=== PATIENT | female | born 1960 | race Caucasian/White ===

== ENCOUNTER 2021-10-07 10:18 | Inpatient (IN) | payer MEDICARE ==
[2021-10-07] VITALS (19 sets, daily range): BP systolic 73–132; BP diastolic 47–76
[~2021-10-07] VITALS: Ht 160 cm; Wt 70.4 kg
[~2021-10-07 10:18] MED LIST: ALBU0.632 IH; ALPR.5T PO; ALPR1T; CEFU500T5 PO; DOXY100C2 PO; GBPN300C PO; PRD20T PO; RT-COMBINH IH
[2021-10-07 10:56] LABS: ALBUMIN 3.9 GM/DL (3.2-4.5); BASOPHILS % (AUTO) 0 % (0-10); EOSINOPHILS % (AUTO) 0 % (0-10); HEMATOCRIT 44 % (35-52); HEMOGLOBIN 13.6 g/dL (11.5-16.0); LYMPHOCYTES # (AUTO) 2.9 10^3/uL (1.0-4.0); LYMPHOCYTES % (AUTO) 18 % (12-44); MEAN CORPUSCULAR HEMOGLOBIN 30 pg (25-34); MEAN CORPUSCULAR HGB CONC 31 g/dL (32-36); MEAN CORPUSCULAR VOLUME 97 fL (80-99); MEAN PLATELET VOLUME 11.2 fL (9.0-12.2); MONOCYTES # (AUTO) 1.1 10^3/uL (0.0-1.0); MONOCYTES % (AUTO) 7 % (0-12); NEUTROPHILS % (AUTO) 74 % (42-75); PLATELET COUNT 189 10^3/uL (130-400); POTASSIUM 3.9 MMOL/L (3.6-5.0); WHITE BLOOD COUNT 16.1 10^3/uL (4.3-11.0)
[2021-10-07 10:57] LABS: CALCIUM 9.5 MG/DL (8.5-10.1)
[2021-10-07 10:59] LABS: TOTAL PROTEIN 7.4 GM/DL (6.4-8.2)
[2021-10-07 11:00] LABS: BILIRUBIN,TOTAL 0.4 MG/DL (0.1-1.0); INR 1.1 (0.8-1.4); PROTHROMBIN TIME PATIENT 14.6 SEC (12.2-14.7)
[2021-10-07 11:02] LABS: CREATININE SERUM 0.71 MG/DL (0.60-1.30)
--- NOTE | 2021-10-07 11:07 | Diagnostic Imaging Report ---
INDICATION: Fever and cough as well as shortness of breath. TIME OF EXAM: 11:04 a.m. COMPARISON: Correlation is made with prior chest 07/02/2012. FINDINGS: Heart size is normal. Patient has developed some infiltrate in the right upper lobe. There is also some patchy infiltrate in the left upper lobe and left base. No effusion or pneumothorax is identified. IMPRESSION: Development of patchy bilateral pulmonary infiltrates consistent with pneumonia. Dictated by: Dictated on workstation # [id number]
[2021-10-07] MEDS ORDERED: methylPREDNISolone 125 MG (Solu-MEDROL) VIAL IVP ONE (11:15)
[2021-10-07] MEDS ORDERED: RT-ALBUTEROL/IPRATROPIUM 3 ML (DUONEB) VIAL INH ONE (11:15)
[2021-10-07 11:19] LABS: BAND NEUTROPHILS 22 %; LYMPHOCYTES % (MANUAL) 23 %; MONOCYTES % (MANUAL) 5 %; NEUTROPHILS % (MANUAL) 50 %; RBC MORPH NORMAL
[2021-10-07] MEDS ORDERED: PIPERACILLIN SODIUM/TAZOBACTAM 4.5 GM in NS (IVPB) 100 ML IV ONE (12:00)
--- NOTE | 2021-10-07 12:01 | ED Respiratory ---
General Chief Complaint: Respiratory Problems Stated Complaint: FEVER - COUGH - SOA Nursing Triage Note: PT AMB TO RM 5 WITH COMPLAINT OF SOA, COUGH, FEVER FOR 2-3 DAYS. WEARS HOME O2, 3LNC Source: patient Exam Limitations: no limitations History of Present Illness Date Seen by Provider: Oct 07, 2021 Time Seen by Provider: 10:42 Initial Comments This 61-year-old woman with known COPD and supplemental oxygen dependence presents to the emergency room with shortness of breath, body aches, subjective fevers, and productive cough for the past 3 days. She lives in [facility] but plans to move back to the area. She currently has no primary care provider here. She is not currently using any nebulized treatments but does have some inhalers. Oxygen saturation on presentation was 69% with use of her nasal cannula. She did resuscitate her saturations greater than 90% with high flow OxyMask. She still occasionally smokes. Her breathing appears comfortable on the high flow mask but she is moving air very poorly on auscultation. Patient had a prolonged hospital admission with COVID-19 previously. Allergies and Home Medications Allergies Coded Allergies: methylprednisolone (Verified Adverse Reaction, Unknown, Agitation and delirium, 10/07/21) Became agitated and delirious after prolonged steroid use with COVID-19 Patient Home Medication List Home Medication List Reviewed: Yes Albuterol Sulfate (Proair Hfa) 1 Puff Puff, 2 PUFF IH Q4H PRN for SHORTNESS OF BREATH, (Reported) Entered as Reported by: BRISA CASTILLO on 10/07/211543 Last Action: Held Alprazolam (Alprazolam) 0.5 Mg Tablet, 0.5 MG PO TID PRN for ANXIETY, (Reported) Entered as Reported by: BRISA CASTILLO on 10/07/211543 Last Action: Continued Budesonide/Formoterol Fumarate (Symbicort 160-4.5 Mcg Inhaler) 160 Mcg-4.5 Mcg/Actuation Hfa.aer.ad, 2 PUFF IH BID, (Reported) Entered as Reported by: BRISA CASTILLO on 10/07/211543 Last Action: Held Celecoxib (Celebrex) 200 Mg Capsule, 200 MG PO DAILY, (Reported) Entered as Reported by: BRISA CASTILLO on 10/07/211543 Last Action: Converted Cholecalciferol (Vitamin D3) (Vitamin D3) 125 Mcg (5000 Unit) Tablet, 125 MCG PO DAILY, (Reported) Entered as Reported by: BRISA CASTILLO on 10/07/211543 Last Action: Continued Gabapentin (Neurontin) 300 Mg Capsule, 600 MG PO HS, (Reported) Entered as Reported by: BRISA CASTILLO on 10/07/211543 Last Action: Continued Gabapentin (Neurontin) 300 Mg Capsule, 300 MG PO DAILY, (Reported) Entered as Reported by: BRISA CASTILLO on 10/07/211543 Last Action: Continued Magnesium Oxide (Magnesium) 400 Mg Magnesium Tablet, 400 MG PO DAILY, (Reported) Entered as Reported by: BRISA CASTILLO on 10/07/211543 Last Action: Converted Multivits-Min/Iron/FA/Lutein (Centrum Silver Women Tablet) 8 Mg Iron-400 Mcg-300 Mcg Tablet, 1 EACH PO DAILY, (Reported) Entered as Reported by: BRISA CASTILLO on 10/07/211543 Last Action: Converted Ubidecarenone (Co Q10) 200 Mg Capsule, 200 MG PO DAILY, (Reported) Entered as Reported by: BRISA CASTILLO on 10/07/211543 Last Action: Converted Umeclidinium [place] (Incruse Ellipta) 62.5 Mcg/Actuation Blst.w.dev, 1 PUFF IH DAILY, (Reported) Entered as Reported by: BRISA ACSTILLO on 10/07/211543 Last Action: Held Discontinued Medications Albuterol Sulfate (Albuterol Sulfate 0.63 Mg/3 Ml Ns) 0.63 Mg/3 Ml Vial.neb, 1 EACH IH Q 4 - 6 HRS PRN Discontinued Reason: Duplicate Order Prescribed by: AMARILIS HURT on 06/25/10 1448 Last Action: Discontinued Alprazolam (Xanax) 0.5 Mg Tablet, 1 TAB PO BID, (Reported) Discontinued Reason: Duplicate Order Entered as Reported by: ALISHA DONOHUE on 07/03/12 0125 Last Action: Discontinued Cefuroxime Axetil (Cefuroxime Axetil) 500 Mg Tablet, 1 EACH PO BID, (Reported) Discontinued Reason: Duplicate Order Entered as Reported by: DOE DAY on 07/10/12 1310 Last Action: Discontinued Ipratropium/Albuterol Sulfate (Combivent Inhaler) 14.7 Gm Aer.w.adap, 2 PUFF IH Q6HR PRN Discontinued Reason: Duplicate Order Prescribed by: AMARILIS HURT on 06/25/10 1448 Last Action: Discontinued Review of Systems Review of Systems Constitutional: see HPI EENTM: no symptoms reported Respiratory: see HPI Cardiovascular: no symptoms reported Gastrointestinal: no symptoms reported Genitourinary: no symptoms reported : No Musculoskeletal: see HPI Skin: no symptoms reported Psychiatric/Neurological: No Symptoms Reported Hematologic/Lymphatic: No Symptoms Reported Immunological/Allergic: no symptoms reported Past Wqfomcm-Cayxmd-Ldukfe Hx Patient Social History Tobacco Use?: Yes Tobacco type used: Cigarettes Smoking Status: Light Tobacco Smoker Use of E-Cig and/or Vaping dev: No Substance use?: No Alcohol Use?: No Pt feels they are or have been: No Immunizations Up To Date Tetanus Booster (TDap): More than 5yrs First/Initial COVID19 Vaccinat: 2020 Second COVID19 Vaccination Vincent: 2020 Seasonal Allergies Seasonal Allergies: No Past Medical History Surgeries: Yes Cardiac (Heart cath without interventions), Hysterectomy Respiratory: Yes Pneumonia, COPD (Uses supplemental oxygen at 3 L) Cardiac: Yes Coronary Artery Disease (Minor, nonobstructive by cath) Neurological: No Reproductive Disorders: No 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 oz. kg; 27.00 BMI Method:Estimated General Appearance: WD/WN, no apparent distress HEENT: PERRL/EOMI, normal ENT inspection Neck: normal inspection Respiratory: decreased breath sounds; No crackles; wheezing, other (Poor air movement) Cardiovascular: regular rate, rhythm, no edema, no murmur, other (Normal radial and pedal pulse) Gastrointestinal: normal bowel sounds, non tender, soft Extremities: normal inspection, no pedal edema Neurologic/Psychiatric: no motor/sensory deficits, alert, normal mood/affect, oriented x 3 Skin: normal color, warm/dry Focused Exam Lactate Level 10/07/21 10:35: Lactic Acid Level 1.75 Lactic Acid Level Laboratory Tests Test 10/07/21 10:35 Lactic Acid Level 1.75 MMOL/L (0.50-2.00) Progress/Results/Core Measures Suspected Sepsis SIRS Temperature: Pulse: 107 Respiratory Rate: 26 Laboratory Tests 10/07/21 10:35: White Blood Count 16.1H Blood Pressure 131 /57 Mean: 81 10/07/21 10:35: Lactic Acid Level 1.75 Laboratory Tests 10/07/21 10:35: Creatinine 0.71, INR Comment 1.1, Platelet Count 189, Total Bilirubin 0.4 Results/Orders Lab Results Laboratory Tests Test 10/07/21 10:35 10/07/21 11:47 Range/Units White Blood Count 16.1 H 4.3-11.0 10^3/uL Red Blood Count 4.48 3.80-5.11 10^6/uL Hemoglobin 13.6 11.5-16.0 g/dL Hematocrit 44 35-52 % Mean Corpuscular Volume 97 80-99 fL Mean Corpuscular Hemoglobin 30 25-34 pg Mean Corpuscular Hemoglobin Concent 31 L 32-36 g/dL Red Cell Distribution Width 12.7 10.0-14.5 % Platelet Count 189 130-400 10^3/uL Mean Platelet Volume 11.2 9.0-12.2 fL Immature Granulocyte % (Auto) 1 % Neutrophils (%) (Auto) 74 42-75 % Lymphocytes (%) (Auto) 18 12-44 % Monocytes (%) (Auto) 7 0-12 % Eosinophils (%) (Auto) 0 0-10 % Basophils (%) (Auto) 0 0-10 % Neutrophils # (Auto) 12.0 H 1.8-7.8 10^3/uL Lymphocytes # (Auto) 2.9 1.0-4.0 10^3/uL Monocytes # (Auto) 1.1 H 0.0-1.0 10^3/uL Eosinophils # (Auto) 0.0 0.0-0.3 10^3/uL Basophils # (Auto) 0.0 0.0-0.1 10^3/uL Immature Granulocyte # (Auto) 0.1 0.0-0.1 10^3/uL Neutrophils % (Manual) 50 % Lymphocytes % (Manual) 23 % Monocytes % (Manual) 5 % Band Neutrophils 22 % Blood Morphology Comment NORMAL Prothrombin Time 14.6 12.2-14.7 SEC INR Comment 1.1 0.8-1.4 Activated Partial Thromboplast Time 37 H 24-35 SEC Sodium Level 137 135-145 MMOL/L Potassium Level 3.9 3.6-5.0 MMOL/L Chloride Level 100 98-107 MMOL/L Carbon Dioxide Level 25 21-32 MMOL/L Anion Gap 12 5-14 MMOL/L Blood Urea Nitrogen 6 L 7-18 MG/DL Creatinine 0.71 0.60-1.30 MG/DL Estimat Glomerular Filtration Rate 95 BUN/Creatinine Ratio 8 Glucose Level 113 H 70-105 MG/DL Lactic Acid Level 1.75 0.50-2.00 MMOL/L Calcium Level 9.5 8.5-10.1 MG/DL Corrected Calcium 9.6 8.5-10.1 MG/DL Total Bilirubin 0.4 0.1-1.0 MG/DL Aspartate Amino Transf (AST/SGOT) 23 5-34 U/L Alanine Aminotransferase (ALT/SGPT) 20 0-55 U/L Alkaline Phosphatase 96 40-136 U/L C-Reactive Protein High Sensitivity 35.27 H 0.00-0.50 MG/DL B-Type Natriuretic Peptide < 10.0 <100.0 PG/ML Total Protein 7.4 6.4-8.2 GM/DL Albumin 3.9 3.2-4.5 GM/DL Procalcitonin 0.09 <0.10 NG/ML Influenza Type A (RT-PCR) Not Detected Not Detecte Influenza Type B (RT-PCR) Not Detected Not Detecte SARS-CoV-2 RNA (RT-PCR) Not Detected Not Detecte Bedside Blood Gas pH (LAB) 7.306 *L 7.310-7.410 Bedside Blood Gas pCO2 (LAB) 61.8 H 41.0-51.0 mmHg Bedside Blood Gas pO2 (LAB) 73 L 80-105 mmHg Bedside Blood Gas HCO3 (LAB) 30.8 H 23.0-28.0 mmol/L POC Blood Gas Total CO2 Calc 33 H 24-29 mmol/L Bedside Bl Gas O2 Saturation (Calc) 92 L 95-98 % Bedside Arterial Blood Base Excess 4 H -2-3 mmol/L My Orders Orders - DOMENIC MALIK MD Covid 19 Inhouse Test (10/07/21 10:42) Influenza A And B By Pcr (10/07/21 10:42) Cbc With Automated Diff (10/07/21 10:45) Comprehensive Metabolic Panel (10/07/21 10:45) Blood Culture (10/07/21 10:45) Sputum Culture (10/07/21 10:45) Urinalysis (10/07/21 10:45) Urine Culture (10/07/21 10:45) Protime With Inr (10/07/21 10:45) Partial Thromboplastin Time (10/07/21 10:45) Chest 1 View, Ap/Pa Only (10/07/21 10:45) Ed Iv/Invasive Line Start (10/07/21 10:45) Vital Signs Adult Sepsis Patie Q15M (10/07/21 10:45) O2 (10/07/21 10:45) Remove Rings In Anticipation O (10/07/21 10:45) Lactic Acid Analyzer (10/07/21 10:45) Bnp Nely (10/07/21 10:45) Hs C Reactive Protein (10/07/21 10:45) Procalcitonin (Pct) (10/07/21 10:45) Manual Differential (10/07/21 10:35) Bipap (Bilevel) Set Up (10/07/21 11:10) Albuterol/Ipra Inhalation Soln (Duoneb I (10/07/21 11:15) Svn Small Volume Nebulizer (10/07/21 11:10) Methylprednisolone Sod Succ (Solu-Medrol (10/07/21 11:15) Piperacillin Sodium/Tazobactam (Zosyn Vi (10/07/21 12:00) Ed Admission (Communication) (10/07/21 11:51) Medications Given in ED Current Medications Medications Dose Ordered Sig/Magda Route Start Time Stop Time Status Last Admin Dose Admin Albuterol/ Ipratropium 3 ml ONCE ONCE INH 10/07/21 11:15 10/07/21 11:16 DC 10/07/21 11:45 3 ML Methylprednisolone Sodium Succinate 62.5 mg ONCE ONCE IVP 10/07/21 11:15 10/07/21 11:16 DC 10/07/21 12:12 62.5 MG Vital Signs/I&O 10/07/21 10/07/21 10/07/21 10/07/21 10:22 10:22 10:35 11:45 Temp 36.8 Pulse 107 Resp 26 B/P (MAP) 131/57 (81) Pulse Ox 95 94 O2 Delivery OxyMask OxyMask Room Air OxyMask O2 Flow Rate 10.00 10.00 3.00 Capillary Refill : Blood Pressure Mean: 81 Progress Note : Progress Note Patient's O2 sat recovered with high flow OxyMask. She was able to take a DuoNeb treatment without BiPAP therapy which did result in improvement of air movement and wheezing. She also received Solu-Medrol 60.5 mg by IV route. Pneumonia was found on chest x-ray which was consistent with history and labs. Antibiotic therapy was started with cefepime in the ER after collection of cultures. I discussed CODE STATUS with the patient and she would like to remain full code. We will reserve BiPAP for as needed only. Case was reviewed with Dr. Bishop who will write the admission orders. Diagnostic Imaging Diagonstic Imaging: Xray Plain Films/CT/US/NM/MRI: chest Comments Chest x-ray viewed by me and report reviewed. See report below: NAME: GLENDY CR [facility] REC#: [id number] PT STATUS: REG ER : 1960 PHYSICIAN: DOMENIC MALIK MD ADMIT DATE: 10/07/21/ER Draft Date of Exam:10/07/21 CHEST 1 VIEW, AP/PA ONLY INDICATION: Fever and cough as well as shortness of breath. TIME OF EXAM: 11:04 a.m. COMPARISON: Correlation is made with prior chest 07/02/2012. FINDINGS: Heart size is normal. Patient has developed some infiltrate in the right upper lobe. There is also some patchy infiltrate in the left upper lobe and left base. No effusion or pneumothorax is identified. IMPRESSION: Development of patchy bilateral pulmonary infiltrates consistent with pneumonia. Dictated on workstation # [id number] Dict: 10/07/21 1104 Trans: 10/07/21 1107 [id number] Interpreted by: EBONY RICE MD Departure Communication (Admissions) Time/Spoke to Admitting Phy: 11:50 Dr. Bishop Impression Primary Impression: COPD exacerbation Additional Impression: Pneumonia Qualified Codes: J18.9 - Pneumonia, unspecified organism Disposition: ADMITTED INPATIENT Condition: Stable Admissions Decision to Admit Reason: Admit from ER (General) Decision to Admit/Date: Oct 07, 2021 Time/Decision to Admit Time: 11:50 Departure-Patient Inst. Referrals: NO,LOCAL PHYSICIAN (PCP/Family) Primary Care Physician DOMENIC MALIK MD Oct 07, 2021 12:01
[2021-10-07] MEDS ORDERED: polyethylene glycoL POWDER 17 GM (MIRALAX) PACK PO PRN (13:30)
[2021-10-07] MEDS ORDERED: RT-ALBUTEROL SULF 2.5 MG/3 ML PRE-MIX VIAL INH PRN (13:30)
[2021-10-07] MEDS ORDERED: CALCIUM CARBONATE 500 MG (TUMS) TAB.CHEW PO PRN (13:30)
[2021-10-07] MEDS ORDERED: ONDANSETRON 4 MG/2 ML (SDV) Z0FRAN IV PRN (13:30)
[2021-10-07] MEDS ORDERED: MELATONIN 3 MG TABLET PO PRN (13:30)
--- NOTE | 2021-10-07 14:28 | Physical Therapy Evaluation ---
PT Evaluation-General Medical Diagnosis Admission Date Oct 07, 2021 at 11:54 Medical Diagnosis: COPD exacerbation/pneumonia Onset Date: Oct 07, 2021 Therapy Diagnosis Therapy Diagnosis: debility Precautions Precautions/Isolations: Standard Precautions Referral Physician: Edna Reason for Referral: Evaluation/Treatment Medical History Pertinent Medical History: COPD, Smoking Additional Medical History Covid Current History patient ambulated to ER secondary to SOA, fever and cough Reviewed History: Yes Social History Home: Single Level Current Living Status: Alone Prior Prior Level of Function SCALE: Activities may be completed with or without assistive devices. 1-Cixennffqm-kxdypgj completes the activity by him/herself with no assistance from a helper. 5-Set-up or Clean-up Assistance-helper sets up or cleans up; patient completes activity. [place] assists only prior to or following the activity. 4-Supervision or Touching Assistance-helper provides verbal cues and/or touching/steadying and/or contact guard assistance as patient completes activity. Assistance may be provided throughout the activity or intermittently. 3-Partial/Moderate Assistance-helper does LESS THAN HALF the effort. [place] lifts, holds or supports trunk or limbs, but provides less than half the effort. 2-Substantial/Maximal Assistance-helper does MORE THAN HALF the effort. [place] l ifts or holds trunk or limbs and provides more than half the effort. 9-Iujdrcrab-sjhthd does ALL the effort. Patient does none of the effort to complete the activity. Or, the assistance of 2 or more helpers is required for the patient to complete the activity. If activity was not attempted, code reason: 7-Patient Refused. 9-Not Applicable-not attempted and the patient did not perform the activity before the current illness, exacerbation or injury. 10-Not Attempted due to Environmental Limitations-(lack of equipment, weather restraints, etc.). 88-Not Attempted due to Medical Conditions or Safety Concerns. Bed Mobility: 6 Transfers (B,C,W/C): 6 Gait: 6 Stairs: 6 Indoor Mobility (Ambulation): Independent Stairs: Independent Prior Devices Use: None PT Evaluation-Current Subjective Patient agrees to PT. Objective Patient Orientation: Normal For Age Attachments: Oxygen ROM/Strength ROM Lower Extremities bilateral LE WFL Strength Lower Extremities 4-/5 grossly bilateral LE Integumentary/Posture Bowel Incontinence: No Bladder Incontinence: No Posture WFL Neuromuscular (Tone, Coordination, Reflexes) grossly intact Sensory Vision: Functional Hearing: Functional Transfers Roll Left to Right (QC): 6 Sit to Lying (QC): 6 Lying to Sitting/Side of Bed(Q: 6 Sit to Stand (QC): 4 Gait Mode of Locomotion: Walk Anticipated Mode of Locomotion: Walk Walk 10 feet (QC): 4 Walk 50 ft with 2 Turns(QC): 88 Walk 150 ft (QC): 88 Distance: 10' x 2 Gait Assistive Device: None Balance Sitting Static: Normal Sitting Dynamic: Normal Standing Static: Fair Standing Dynamic: Fair Treatment decrease SAO2 to 86% on O2 with minimal activity with moderate recovery time. Assessment/Needs 61 y.o. female, will be seen short term by skilled PT to address pulmonary function with functional mobility and strengthening. Patient does display decreased SAO2 with minimal activity on this date. Rehab Potential: Fair PT Alf Goals [employer] Goals PT Alf Goals Time Frame: Oct 16, 2021 Roll Left & Right (QC): 6 Sit to Lying (QC): 6 Lying-Sitting on Side/Bed(QC): 6 Sit to Stand (QC): 6 Chair/Rqk-kh-Cwjtg Xfer(QC): 6 Toilet Transfer (QC): 6 Walk 10 feet (QC): 6 Walk 50ft with 2 Turns (QC): 6 Walk 150 ft (QC): 6 PT Plan Problem List Problem List: Activity Tolerance, Safety, Balance, Gait, Transfer Treatment/Plan Treatment Plan: Continue Plan of Care Treatment Plan: Education, Functional Activity Ancelmo, Functional Strength, Gait, Safety, Therapeutic Exercise, Transfers Treatment Duration: Oct 16, 2021 Frequency: 6 times per week Estimated Hrs Per Day: .25 hour per day Patient and/or Family Agrees t: Yes Time/GCodes Time In: 1348 Time Out: 1358 Total Billed Treatment Time: 10 Total Billed Treatment 1 visit EVMod 10 min JASON BROWN PT Oct 07, 2021 14:28
--- NOTE | 2021-10-07 14:41 | History & Physical-Hospitalist ---
History of Present Illness HPI/Chief Complaint Patient is 61-year-old female past medical history of COPD with chronic respiratory failure requiring 2 to 3 L of oxygen at baseline who presented to the emergency department due to shortness of breath. She states she lives here years ago and she moved to [place] but recently moved back to the area. She states due to the humidity her shortness of breath is worsened. This is occurred over the past couple of days. She has been using her inhalers. She reported her shortness of breath was so bad she could hardly move due to the dyspnea and actually asked her son to carry her out of her room. She was found to be satting 69% on her normal 2 to 3 L but improved easily with high flow oxygen mask. Per ER she had very poor air movement and they attempted BiPAP for nebulized treatments but she responded well to just regular breathing treatments. On my exam she states she is feeling much better and breathing has improved significantly. Source: patient Date Seen 10/07/21 Time Seen by a Provider: 12:45 Attending Physician No,Local Physician PCP Admitting Physician: Sj Bishop MD Attending Physician: Sj Bishop MD Referring Physician Date of Admission Oct 07, 2021 at 11:54 Home Medications & Allergies Home Medications Reviewed patient Home Medication Reconciliation performed by pharmacy medication reconciliations compounding technician and/or nursing. Patients Allergies have been reviewed. Allergies Allergies Coded Allergies methylprednisolone (Verified Adverse Reaction, Unknown, Agitation and delirium, 10/07/21) Became agitated and delirious after prolonged steroid use with COVID-19 Past Wezpvje-Solunp-Dhhgxy Hx Patient Social History Tobacco Use?: Yes Tobacco type used: Cigarettes Smoking Status: Light Tobacco Smoker Use of E-Cig and/or Vaping dev: No Substance use?: No Alcohol Use?: No Pt feels they are or have been: No Immunizations Up To Date Date of Influenza Vaccine: Jan 31, 2012 First/Initial COVID19 Vaccinat: 2020 Second COVID19 Vaccination Vincent: 2020 Hepatitis A: Yes Hepatitis B: Yes Date of Pneumonia Vaccine: Feb 01, 2009 Seasonal Allergies Seasonal Allergies: No Current Status Advance Directives: No Primary Language: Uruguayan Preferred Spoken Language: Uruguayan Past Medical History Surgeries: Cardiac (Heart cath without interventions), Hysterectomy Pneumonia, COPD (Uses supplemental oxygen at 3 L) Coronary Artery Disease (Minor, nonobstructive by cath) 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 Sexually Transmitted Disease: No Hepatitis Chronic Back Pain Adverse Reaction/Blood Tranf: No (STSTES GOT HEP C FROM BLOOD TRANSFUSION) Family Medical History Reviewed Nursing Family Hx Heart Disease Review of Systems Constitutional: No chills, No fever EENTM: no symptoms reported Respiratory: cough, dyspnea on exertion, hemoptysis (patient did not report this but ER noted it- scant), short of breath Cardiovascular: No chest pain, No edema, No palpitations Gastrointestinal: No abdominal pain Genitourinary: no symptoms reported Musculoskeletal: no symptoms reported Skin: no symptoms reported Psychiatric/Neurological: No Symptoms Reported Physical Exam Physical Exam Vital Signs Vital Signs - First Documented 10/07/21 10:22 Temp 36.8 Pulse 107 Resp 26 B/P (MAP) 131/57 (81) Pulse Ox 95 O2 Delivery OxyMask O2 Flow Rate 10.00 Capillary Refill : Height, Weight, BMI Height: '" Weight: lbs. oz. kg; 27.00 BMI Method:Estimated General Appearance: No Apparent Distress, WD/WN HEENT: PERRL/EOMI, Moist Mucous Membranes; No Scleral Icterus (L), No Scleral Icterus (R); Other (nasal cannula in place) Neck: Normal Inspection, Supple Respiratory: No Accessory Muscle Use, No Respiratory Distress, Wheezing Cardiovascular: Regular Rate, Rhythm, No Murmur Gastrointestinal: Normal Bowel Sounds, Non Tender, Soft Extremity: Normal Capillary Refill, No Calf Tenderness, No Pedal Edema Neurologic/Psychiatric: Alert, Oriented x3, Normal Mood/Affect Results Results/Procedures Labs Laboratory Tests 10/07/21 10:35 Patient resulted labs reviewed. Imaging [facility], [place] NAME: [facility]END[facility] REC#: [id number] PT STATUS: REG ER : 1960 PHYSICIAN: DOMENIC MALIK MD ADMIT DATE: 10/07/21/ER Draft Date of Exam:10/07/21 CHEST 1 VIEW, AP/PA ONLY INDICATION: Fever and cough as well as shortness of breath. TIME OF EXAM: 11:04 a.m. COMPARISON: Correlation is made with prior chest 07/02/2012. FINDINGS: Heart size is normal. Patient has developed some infiltrate in the right upper lobe. There is also some patchy infiltrate in the left upper lobe and left base. No effusion or pneumothorax is identified. IMPRESSION: Development of patchy bilateral pulmonary infiltrates consistent with pneumonia. Dictated on workstation # [id number] Dict: 10/07/21 1104 Trans: 10/07/21 1107 [id number] Interpreted by: EBONY RICE MD Electronically signed by: Assessment/Plan Admission Diagnosis Acute hypoxic respiratory failure secondary to COPD exacerbation Admission Status: Inpatient Order (span 2 midnights) Reason for Inpatient Admission: see below Assessment and Plan Acute hypoxic respiratory failure secondary to COPD exacerbation Sepsis due to Bilateral pneumonia- POA Leukocytosis and tachycardia with tachypnea on arrival, CXR with PNA Continue IV abx Continue on steroids (gets very agitated with solumedrol so will try oral prednisone) Resume home inhalers Pulm consult MAT protocol Wean oxygen as able Await cultures Add Advair and Singulair Tobacco abuse Recommended cessation DVT ppx: Lovenox Diagnosis/Problems Diagnosis/Problems (1) Sepsis Status: Acute Qualifiers: Sepsis type: sepsis due to unspecified organism Sepsis acute organ dysfunction status: without acute organ dysfunction Qualified Codes: A41.9 - Sepsis, unspecified organism (2) Acute respiratory failure Status: Acute Qualifiers: Respiratory failure complication: hypoxia and hypercapnia Qualified Codes: J96.01 - Acute respiratory failure with hypoxia; J96.02 - Acute respiratory failure with hypercapnia (3) COPD (chronic obstructive pulmonary disease) Status: Acute Qualifiers: COPD type: COPD with acute lower respiratory infection Qualified Codes: J44.0 - Chronic obstructive pulmonary disease with (acute) lower respiratory infection (4) Pneumonia Status: Acute Qualifiers: Pneumonia type: due to unspecified organism Laterality: bilateral Lung location: lower lobe of lung Qualified Codes: J18.9 - Pneumonia, unspecified organism SJ BISHOP MD Oct 07, 2021 14:41
[2021-10-07] MEDS: RT-ALBUTEROL/IPRATROPIUM 3 ML (DUONEB) VIAL IH SCH ×3 (15:10→22:50)
[2021-10-07] MEDS ORDERED: BUDE10.2 IH (15:44)
[2021-10-07] MEDS ORDERED: MAGN400T39 PO (15:44)
[2021-10-07] MEDS ORDERED: UBID200C36 PO (15:44)
[2021-10-07] MEDS ORDERED: MULT-1021 PO (15:44)
[2021-10-07] MEDS ORDERED: CALC-250 PO (15:44)
[2021-10-07] MEDS ORDERED: UMEC62.5 IH (15:44)
[2021-10-07] MEDS ORDERED: RT-ALBUINH IH (15:44)
[2021-10-07] MEDS ORDERED: ALPR0.5T7 PO (15:44)
[2021-10-07] MEDS ORDERED: CELE200C PO (15:44)
[2021-10-07] MEDS ORDERED: GABA300C PO ×2 (15:44)
[2021-10-07] MEDS: ENOXAPARIN 40 MG/0.4 ML (LOVENOX) SYR SQ SCH (15:45)
[2021-10-07] MEDS ORDERED: ALPRAZolam 0.5 MG (XANAX) TAB PO PRN (16:00)
[2021-10-07] MEDS: PIPERACILLIN SODIUM/TAZOBACTAM 4.5 GM in NS (IVPB) 100 ML IV SCH (18:55)
[2021-10-07] MEDS: RT--FLUTICASONE/SALMETEROL 113-14 (AIRDUO RespiCLICK) IH SCH (19:24)
[2021-10-07] MEDS: ACETAMINOPHEN 325 MG TABLET PO PRN (19:59)
[2021-10-07] MEDS: GABAPENTIN 300 MG (NEURONTIN) CAP PO SCH (20:07)
[2021-10-07] MEDS: MONTELUKAST 10 MG (SINGULAIR) TAB PO SCH (20:07)
[2021-10-08] VITALS: BP 112/64
[2021-10-08] MEDS: PIPERACILLIN SODIUM/TAZOBACTAM 4.5 GM in NS (IVPB) 100 ML IV SCH ×3 (02:49→18:33)
[2021-10-08] MEDS: RT-ALBUTEROL/IPRATROPIUM 3 ML (DUONEB) VIAL IH SCH ×6 (02:51→22:56)
[2021-10-08 03:41] VITALS: BP 112/64
[2021-10-08 05:38] LABS: HEMATOCRIT 38 % (35-52); HEMOGLOBIN 12.2 g/dL (11.5-16.0); MEAN CORPUSCULAR HEMOGLOBIN 31 pg (25-34); MEAN CORPUSCULAR HGB CONC 32 g/dL (32-36); MEAN CORPUSCULAR VOLUME 97 fL (80-99); MEAN PLATELET VOLUME 11.2 fL (9.0-12.2); PLATELET COUNT 179 10^3/uL (130-400)
[2021-10-08 05:47] LABS: POTASSIUM 4.4 MMOL/L (3.6-5.0)
[2021-10-08 05:48] LABS: CALCIUM 9.2 MG/DL (8.5-10.1)
[2021-10-08 05:53] LABS: CREATININE SERUM 0.78 MG/DL (0.60-1.30)
[2021-10-08] MEDS: MULTIVIT W/MINERALS TAB (THERAGRAN M) PO SCH (06:47)
[2021-10-08] MEDS: RT--FLUTICASONE/SALMETEROL 113-14 (AIRDUO RespiCLICK) IH SCH ×2 (07:38→19:26)
[2021-10-08 08:00] VITALS: BP 129/58
--- NOTE | 2021-10-08 08:21 | Progress Note - Hospitalist ---
Subjective HPI/CC On Admission Date Seen by Provider: Oct 08, 2021 Patient is 61-year-old female past medical history of COPD with chronic respiratory failure requiring 2 to 3 L of oxygen at baseline who presented to the emergency department due to shortness of breath. She states she lives here years ago and she moved to [place] but recently moved back to the area. She states due to the humidity her shortness of breath is worsened. This is occurred over the past couple of days. She has been using her inhalers. She reported her shortness of breath was so bad she could hardly move due to the dyspnea and actually asked her son to carry her out of her room. She was found to be satting 69% on her normal 2 to 3 L but improved easily with high flow oxygen mask. Per ER she had very poor air movement and they attempted BiPAP for nebulized treatments but she responded well to just regular breathing treatments. On my exam she states she is feeling much better and breathing has improved significantly. Subjective/Events-last exam Pt reports breathing better. Currently getting breathing treatment. No complaint s. Focused Exam Lactate Level 10/07/21 10:35: Lactic Acid Level 1.75 Objective Exam Vital Signs Vital Signs Date Time Temp Pulse Resp B/P (MAP) Pulse Ox O2 Delivery O2 Flow Rate FiO2 10/08/21 07:49 Nasal Cannula 3.00 10/08/21 07:39 94 10/08/21 07:00 99 10/08/21 03:41 36.4 24 112/64 (80) Capillary Refill : General Appearance: No Apparent Distress, Chronically ill Respiratory: Lungs Clear, No Accessory Muscle Use, No Respiratory Distress Cardiovascular: Regular Rate, Rhythm, No Murmur Neurologic/Psychiatric: Alert, Oriented x3 Results/Procedures Lab Laboratory Tests 10/07/21 10:35 10/08/21 05:30 Patient resulted labs reviewed. Assessment/Plan Assessment and Plan Assess & Plan/Chief Complaint Acute hypoxic respiratory failure secondary to COPD exacerbation Sepsis due to Bilateral pneumonia- POA Continue IV abx Continue on steroids Pulm consult MAT protocol Wean oxygen as able- currently at baseline Await cultures Advair and Singulair transfer to [address] [place] [address] Tobacco abuse Recommended cessation DVT ppx: Lovenox Diagnosis/Problems Diagnosis/Problems (1) Sepsis Status: Acute Qualifiers: Sepsis type: sepsis due to unspecified organism Sepsis acute organ dysfunction status: without acute organ dysfunction Qualified Codes: A41.9 - Sepsis, unspecified organism (2) Acute respiratory failure Status: Acute Qualifiers: Respiratory failure complication: hypoxia and hypercapnia Qualified Codes: J96.01 - Acute respiratory failure with hypoxia; J96.02 - Acute respiratory failure with hypercapnia (3) COPD (chronic obstructive pulmonary disease) Status: Acute Qualifiers: COPD type: COPD with acute lower respiratory infection Qualified Codes: J44.0 - Chronic obstructive pulmonary disease with (acute) lower respiratory infection (4) Pneumonia Status: Acute Qualifiers: Pneumonia type: due to unspecified organism Laterality: bilateral Lung location: lower lobe of lung Qualified Codes: J18.9 - Pneumonia, unspecified organism SJ SAUCEDA MD Oct 08, 2021 08:21
[2021-10-08] MEDS ORDERED: NON-FORMULARY MEDICATION 1 EA EA (Multivits-Min/Iron/FA/Lutein (Centrum Silver Women Table PO SCH (09:00)
[2021-10-08] MEDS ORDERED: NON-FORMULARY MEDICATION 1 EA EA (Ubidecarenone (Co Q10) 200 MG) PO SCH (09:00)
[2021-10-08] MEDS ORDERED: NON-FORMULARY MEDICATION 1 EA EA (Celecoxib (Celebrex) 200 MG) PO SCH (09:00)
[2021-10-08] MEDS ORDERED: NON-FORMULARY MEDICATION 1 EA EA (Magnesium Oxide (Magnesium) 400 MG) PO SCH (09:00)
--- NOTE | 2021-10-08 09:52 | Tele-ICU Progress Note ---
Subjective Date Seen by a Provider: Oct 08, 2021 Time Seen by a Provider: 09:38 Subjective/Events-last exam This virtual visit was conducted using real time audio/video. Thank you for asking us to see this patient for respiratory insufficiency due to AECOPD and B pna. covid neg. Recent events: ambulating w PT. PMH: COPD on 3 LPM home O2, previous Covid. SH: smoking history: current. FH: Non-contributory ROS:as in HPI. PE: VSS. O2 sat 95% on 3 LPM HEENT: No obvious masses, adenopathy or JVD. Chest: clear to auscultation. Diminished. CV: RRR S1 S2 No murmur or added sounds. Abd: Non-tender. Bowel sounds Y. : Unremarkable. Diane N. BONSAI CULTURIST/psychiatric: Grossly intact. No obvious focal findings. Extremities: No edema. Capillary refill < 3 seconds. Skin: unremarkable. Results: Elevated BG 131. BG: . CXR: 10/07/2021 7.306/61.8/73.. Available chart/ vitals / labs / images reviewed. Video assessment done using teleICU camera, rest of exam as per RN. A/P: Respiratory insufficiency: Continue present management with O2, duonebs, prednisone, Airduo, Singulair. Monitor for increasing oxygenation needs and/or need for intubation. Critical Care: critically ill patient. Cont. abx, lovenox Discussed with RN Margo. Asked RN to reach out to eICU if any questions or concerns later. Time spent with patient/coordination of care with other health professionals (mins): 20 Sepsis Event Evaluation Height, Weight, BMI Height: '" Weight: lbs. oz. kg; 27.50 BMI Method:Estimated Focused Exam Lactate Level 10/07/21 10:35: Lactic Acid Level 1.75 Exam Exam Patient acknowledged, consented, and participated in this virtual visit which was conducted using real time audio/video Vital Signs Date Time Temp Pulse Resp B/P (MAP) Pulse Ox O2 Delivery O2 Flow Rate FiO2 10/08/21 08:00 36.2 91 16 129/58 (81) 100 Nasal Cannula 3.00 10/08/21 07:49 Nasal Cannula 3.00 10/08/21 07:39 94 Nasal Cannula 3.00 10/08/21 07:00 99 10/08/21 04:28 Nasal Cannula 3.00 10/08/21 03:41 36.4 96 24 112/64 (80) 94 Nasal Cannula 10/08/21 02:51 92 Nasal Cannula 2.00 10/08/21 01:00 96 10/08/21 00:00 Nasal Cannula 3.00 10/08/21 00:00 100 18 112/64 (80) 93 Nasal Cannula 3.00 10/08/21 00:00 36.8 10/07/21 23:25 36.5 104 18 110/70 (83) Nasal Cannula 10/07/21 22:50 93 Nasal Cannula 2.00 10/07/21 20:01 36.8 10/07/21 20:00 Nasal Cannula 3.00 10/07/21 20:00 112 19 132/69 (90) 93 Nasal Cannula 2.00 10/07/21 20:00 36.9 10/07/21 19:24 93 Nasal Cannula 2.00 10/07/21 19:00 110 10/07/21 16:00 Nasal Cannula 3.00 10/07/21 16:00 36.6 98 20 106/62 (77) 96 Nasal Cannula 2.00 10/07/21 15:55 36.2 101 19 118/63 (81) 95 Nasal Cannula 2.00 10/07/21 15:30 104 20 119/66 (81) 94 Nasal Cannula 2.00 10/07/21 15:18 101 32 91 Nasal Cannula 2.00 10/07/21 15:15 102 20 131/68 (91) 90 Nasal Cannula 2.00 10/07/21 15:12 95 Nasal Cannula 3.00 10/07/21 15:03 97 17 95 Nasal Cannula 2.00 10/07/21 15:00 103 49 126/62 (99) 95 Nasal Cannula 2.00 10/07/21 14:48 107 26 83 Nasal Cannula 2.00 10/07/21 14:45 103 34 125/76 (87) 92 Nasal Cannula 2.00 10/07/21 14:33 102 16 92 Nasal Cannula 2.00 10/07/21 14:31 105 24 119/69 (92) 79 10/07/21 14:31 105 24 119/69 (92) 79 Nasal Cannula 2.50 10/07/21 14:23 92 Nasal Cannula 2.50 10/07/21 14:15 119/55 (79) 93 Nasal Cannula 2.50 10/07/21 14:08 94 Nasal Cannula 2.50 10/07/21 14:00 129/57 (86) 93 Nasal Cannula 2.50 10/07/21 13:52 114/69 (81) 90 Nasal Cannula 2.50 10/07/21 13:48 98 93 10/07/21 13:45 98 73/47 (65) 78 10/07/21 13:38 95 95 Nasal Cannula 2.50 10/07/21 13:33 95 95 10/07/21 13:30 94 125/73 (93) 95 10/07/21 13:30 94 125/73 (93) 95 Nasal Cannula 2.50 10/07/21 13:18 95 23 93 10/07/21 13:15 99 18 130/63 (89) 93 Nasal Cannula 2.50 10/07/21 13:15 99 18 130/63 (89) 93 10/07/21 13:11 98 10/07/21 13:08 95 Nasal Cannula 2.50 10/07/21 13:03 100 15 95 10/07/21 13:00 Nasal Cannula 2.50 10/07/21 13:00 102 12 123/65 (107) 95 Nasal Cannula 2.50 10/07/21 13:00 102 12 123/65 (107) 95 10/07/21 12:48 105 21 124/50 (90) 95 Nasal Cannula 2.50 10/07/21 12:48 105 21 124/50 (90) 95 10/07/21 12:44 109 21 74/59 (65) 10/07/21 12:44 109 21 74/59 (65) Nasal Cannula 2.50 10/07/21 12:40 131/59 (89) 10/07/21 12:40 36.0 105 19 131/59 (83) 95 Nasal Cannula 2.50 10/07/21 12:34 108 16 128/47 95 Nasal Cannula 3.00 10/07/21 11:45 94 OxyMask 3.00 10/07/21 10:35 Room Air 10/07/21 10:22 36.8 107 26 131/57 (81) 95 OxyMask 10.00 10/07/21 10:22 OxyMask 10.00 I & O 10/08/21 07:00 Intake Total 860 ml Output Total 760 ml Balance 100 ml Height & Weight Height: '" Weight: lbs. oz. kg; 27.50 BMI Method:Estimated General Appearance: No Apparent Distress, Chronically ill HEENT: PERRL/EOMI, Moist Mucous Membranes; No Scleral Icterus (L), No Scleral Icterus (R); Other (nasal cannula in place) Neck: Normal Inspection, Supple Respiratory: Lungs Clear, No Accessory Muscle Use, No Respiratory Distress Cardiovascular: Regular Rate, Rhythm, No Murmur Gastrointestinal: normal bowel sounds, non tender, soft Extremity: Normal Capillary Refill, No Calf Tenderness, No Pedal Edema Neurologic/Psychiatric: Alert, Oriented x3 Results Lab Laboratory Tests 10/07/21 10:35 10/08/21 05:30 Assessment/Plan Assessment/Plan See free text. Critical Care: Critically Ill Patient CHUCK EDMONDS MD Oct 08, 2021 09:52
[2021-10-08] MEDS: CELECOXIB 100 MG (CeleBREX) CAP PO SCH (10:22)
[2021-10-08] MEDS: predniSONE 20 MG TAB PO SCH (10:22)
[2021-10-08] MEDS: VITAMIN D3 125 MCG (5,000 UNITS) CAPSULE PO SCH (10:23)
[2021-10-08] MEDS: MAGNESIUM OXIDE (MAG-OX)400 MG TAB PO SCH (10:23)
[2021-10-08] MEDS: GABAPENTIN 300 MG (NEURONTIN) CAP PO SCH ×2 (10:23→21:09)
--- NOTE | 2021-10-08 10:26 | Physical Therapy Daily Note ---
PT Daily Note-Current Subjective Patient states, "I'm so sleepy." Agrees to PT. Mental Status Patient Orientation: Normal For Age Attachments: Oxygen Transfers SCALE: Activities may be completed with or without assistive devices. 6-Dhmnuhbhnt-ljrfhle completes the activity by him/herself with no assistance from a helper. 5-Set-up or Clean-up Assistance-helper sets up or cleans up; patient completes activity. Mitchell assists only prior to or following the activity. 4-Supervision or Touching Assistance-helper provides verbal cues and/or touching/steadying and/or contact guard assistance as patient completes activity. Assistance may be provided throughout the activity or intermittently. 3-Partial/Moderate Assistance-helper does LESS THAN HALF the effort. Mitchell lifts, holds or supports trunk or limbs, but provides less than half the effort. 2-Substantial/Maximal Assistance-helper does MORE THAN HALF the effort. Mitchell lifts or holds trunk or limbs and provides more than half the effort. 6-Zpasdyrou-sfwvgk does ALL the effort. Patient does none of the effort to complete the activity. Or, the assistance of 2 or more helpers is required for the patient to complete the activity. If activity was not attempted, code reason: 7-Patient Refused. 9-Not Applicable-not attempted and the patient did not perform the activity before the current illness, exacerbation or injury. 10-Not Attempted due to Environmental Limitations-(lack of equipment, weather restraints, etc.). 88-Not Attempted due to Medical Conditions or Safety Concerns. Sit to Lying (QC): 6 Lying to Sitting/Side of Bed(Q: 6 Sit to Stand (QC): 6 Gait Training Distance: 300' Walk 10 feet (QC): 6 Walk 50 ft with 2 Turns(QC): 6 Walk 150 ft (QC): 6 Gait Assistive Device: None safe and functional with no deviation Assessment Patient is currently independent with all gross motor skills and does not require skilled PT intervention. Patient instructed to ambulate PRN with nursing in hallway and . PT Retirement Goals Film Historian Goals PT Retirement Goals Time Frame: Oct 16, 2021 Roll Left & Right (QC): 6 Sit to Lying (QC): 6 Lying-Sitting on Side/Bed(QC): 6 Sit to Stand (QC): 6 Chair/Org-zb-Bifmx Xfer(QC): 6 Toilet Transfer (QC): 6 Walk 10 feet (QC): 6 Walk 50ft with 2 Turns (QC): 6 Walk 150 ft (QC): 6 PT Plan Treatment/Plan Treatment Plan: Discontinue PT Treatment Plan: Education, Functional Activity Ancelmo, Functional Strength, G ait, Safety, Therapeutic Exercise, Transfers Treatment Duration: Oct 16, 2021 Frequency: 6 times per week Estimated Hrs Per Day: .25 hour per day Patient and/or Family Agrees t: Yes Time/GCodes Time In: 825 Time Out: 836 Total Billed Treatment Time: 11 Total Billed Treatment 1 visit FA 11 min JASON BROWN PT Oct 08, 2021 10:26
[2021-10-08 12:00] VITALS: BP 126/65
[2021-10-08] MEDS: ACETAMINOPHEN 325 MG TABLET PO PRN (12:00)
[2021-10-08] MEDS: DULoxetine 30 MG (CYMBALTA) CAP PO SCH (12:56)
[2021-10-08] MEDS: ENOXAPARIN 40 MG/0.4 ML (LOVENOX) SYR SQ SCH (14:54)
[2021-10-08 16:00] VITALS: BP 124/72
[2021-10-08] MEDS: MONTELUKAST 10 MG (SINGULAIR) TAB PO SCH (21:10)
[2021-10-09] MEDS: RT-ALBUTEROL/IPRATROPIUM 3 ML (DUONEB) VIAL IH SCH ×3 (02:34→10:58)
[2021-10-09] MEDS: PIPERACILLIN SODIUM/TAZOBACTAM 4.5 GM in NS (IVPB) 100 ML IV SCH (06:02)
[2021-10-09] MEDS: RT--FLUTICASONE/SALMETEROL 113-14 (AIRDUO RespiCLICK) IH SCH (07:07)
[2021-10-09] MEDS: predniSONE 20 MG TAB PO SCH (07:55)
[2021-10-09] MEDS: GABAPENTIN 300 MG (NEURONTIN) CAP PO SCH (07:56)
[2021-10-09] MEDS: CELECOXIB 100 MG (CeleBREX) CAP PO SCH (07:56)
[2021-10-09] MEDS: DULoxetine 30 MG (CYMBALTA) CAP PO SCH (07:56)
[2021-10-09] MEDS: MAGNESIUM OXIDE (MAG-OX)400 MG TAB PO SCH (07:57)
[2021-10-09] MEDS: VITAMIN D3 125 MCG (5,000 UNITS) CAPSULE PO SCH (07:57)
[2021-10-09] MEDS: MULTIVIT W/MINERALS TAB (THERAGRAN M) PO SCH (07:57)
[2021-10-09 08:00] VITALS: BP 122/55
[2021-10-09] MEDS ORDERED: AUGMENTIN 875 MG TAB (AMOXICILLIN/CLAVULANATE) PO SCH (08:15)
[2021-10-09] MEDS ORDERED: DULoxetine 30 MG (CYMBALTA) CAP PO SCH (09:00)
[2021-10-09] MEDS ORDERED: AMOX1TAB12 PO (11:12)
[2021-10-09] MEDS ORDERED: PRED10TA22 PO (11:12)
[2021-10-09 11:53] VITALS: BP 140/63
--- NOTE | 2021-10-09 16:24 | Discharge Summary ---
Discharge Summary Hospital Course Problems/Dx: (1) Sepsis Status: Acute Qualifiers: Qualified Codes: A41.9 - Sepsis, unspecified organism (2) Acute respiratory failure Status: Acute Qualifiers: Qualified Codes: J96.01 - Acute respiratory failure with hypoxia; J96.02 - Acute respiratory failure with hypercapnia (3) COPD (chronic obstructive pulmonary disease) Status: Acute Qualifiers: (4) Pneumonia Status: Acute Qualifiers: Qualified Codes: J18.9 - Pneumonia, unspecified organism Hospital Course Date of Admission: Oct 07, 2021 at 11:54 Admission Diagnosis : Sepsis due to pneumonia, COPD with acute exacerbation Family Physician/Provider: JodiLocal Physician Date of Discharge: 10/09/21 Discharge Diagnosis: Sepsis due to pneumonia, COPD with acute exacerbation Hospital Course: Duyen Major is a 61 year old female who was admitted with sepsis due to pneumonia. She was septic with a leukocytosis and tachycardia. Her chest xray showed patchy bilateral infiltrates. She was treated with IV antibiotics. She also had acute on chronic respiratory failure with hypoxia and hypercapnia. She was treated for a COPD exacerabation. She improved and her oxygen requirement returned to her baseline. She was discharged home with a steroid taper and a course of Augmentin. She should follow up with her PCP in about a week. She was discharged home in stable condition. 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 Amox Tr-K Clv 875-125 mg Tab (Amoxicillin/Potassium Clav) 875 Mg-125 Mg Tablet 875 Mg PO BID WITH MEALS 5 Days Reported Vitamin D3 (Cholecalciferol (Vitamin D3)) 125 Mcg (5000 Unit) Tablet 125 Mcg PO DAILY Centrum Silver Women Tablet (Multivits-Min/Iron/FA/Lutein) 8 Mg Iron-400 Mcg-300 Mcg Tablet 1 Each PO DAILY Magnesium (Magnesium Oxide) 400 Mg Magnesium Tablet 400 Mg PO DAILY Co Q10 (Ubidecarenone) 200 Mg Capsule 200 Mg PO DAILY Alprazolam 0.5 Mg Tablet 0.5 Mg PO TID PRN Incruse Ellipta (Umeclidinium Perrin) 62.5 Mcg/Actuation Blst.w.dev 1 Puff IH DAILY Symbicort 160-4.5 Mcg Inhaler (Budesonide/Formoterol Fumarate) 160 Mcg-4.5 Mcg/Actuation Hfa.aer.ad 2 Puff IH BID Proair Hfa (Albuterol Sulfate) 1 Puff Puff 2 Puff IH Q4H PRN Celebrex (Celecoxib) 200 Mg Capsule 200 Mg PO DAILY Neurontin (Gabapentin) 300 Mg Capsule 300 Mg PO DAILY LAST FILLED 08-13-2021 #60/20 DAY SUPPLY Neurontin (Gabapentin) 300 Mg Capsule 600 Mg PO HS TAKES 2 (300MG) TABS LAST FILLED 08-13-2021 #60/ DAY SUPPLY Assessment/Pt Instructions See instructions Discharge Planning: >30 minutes discharge planning Discharge Instructions Discharge Diet: No Restrictions Activity as Tolerated: Yes Consultations Pulmonology Discharge Physical Examination Vital Signs Vital Signs Date Time Temp Pulse Resp B/P (MAP) Pulse Ox O2 Delivery O2 Flow Rate FiO2 10/09/21 11:53 36.1 97 13 140/63 (88) 98 Nasal Cannula 3.00 General Appearance: No Apparent Distress, WD/WN Respiratory: No Respiratory Distress, Decreased Breath Sounds, Wheezing Cardiovascular: Regular Rate, Rhythm, No Murmur Gastrointestinal: Normal Bowel Sounds, Non Tender, Soft Extremity: Normal Inspection, No Pedal Edema Skin: Normal Color, Warm/Dry Neurologic/Psychiatric: Alert, Oriented x3, No Motor/Sensory Deficits Allergies: Coded Allergies: methylprednisolone (Verified Adverse Reaction, Unknown, Agitation and delirium, 10/07/21) Became agitated and delirious after prolonged steroid use with COVID-19 Discharge Summary Date of Admission Oct 07, 2021 at 11:54 Date of Discharge Oct 09, 2021 at 12:15 Discharge Date: Oct 09, 2021 Discharge Time: 12:15 Admission Diagnosis Acute hypoxic respiratory failure secondary to COPD exacerbation, sepsis due to pneumonia Consults/Procedures Consulations Pulmonology Discharge Diagnosis (1) Sepsis Status: Acute Qualifiers: Qualified Codes: A41.9 - Sepsis, unspecified organism (2) Acute respiratory failure Status: Acute Qualifiers: Qualified Codes: J96.01 - Acute respiratory failure with hypoxia; J96.02 - Acute respiratory failure with hypercapnia (3) COPD (chronic obstructive pulmonary disease) Status: Acute Qualifiers: (4) Pneumonia Status: Acute Qualifiers: Qualified Codes: J18.9 - Pneumonia, unspecified organism RATNA HERRERA MD Oct 09, 2021 16:12
== END 2021-10-09 12:15 | disposition home or self-care (01) | DRG 871 ==
LOC: EDUNIT# 10:18 → ER 10:20 → CSD 11:54
PROVIDERS: ADMIT Family Medicine; ATTEND Internal Medicine
DX: A41.9 Sepsis, unspecified organism (principal); J18.9 Pneumonia, unspecified organism; J96.21 Acute and chronic respiratory failure with hypoxia; J96.22 Acute and chronic respiratory failure with hypercapnia; J44.0 Chronic obstructive pulmonary disease with (acute) lower respiratory infection; J44.1 Chronic obstructive pulmonary disease with (acute) exacerbation; Z20.822 Contact with and (suspected) exposure to COVID-19; F17.210 Nicotine dependence, cigarettes, uncomplicated; I25.10 Atherosclerotic heart disease of native coronary artery without angina pectoris; G89.29 Other chronic pain; M54.9 Dorsalgia, unspecified
CPT/HCPCS: 36415; 71045; 80048; 80053; 82805; 83605; 83880; 84145; 85007; 85027; 85610; 85730; 86141; 87040; 87070; 87077; 87205; 87636; 94640; 94760

== ENCOUNTER 2022-04-12 13:49 | Inpatient (IN) | payer MEDICARE ==
[~2022-04-12] VITALS: Ht 160 cm; Wt 66.3 kg
[~2022-04-12 13:49] MED LIST changes: +ALBU8.5H6 IH; +ALPR0.5T7 PO; +AMOX1TAB12 PO; +BUDE10.2 IH; +CALC-250 PO; +CELE200C PO; +GABA300C PO; +MAGN400T39 PO; +MULT-1021 PO; +PRED10TA22 PO; +UBID200C36 PO; +UMEC62.5 IH
[2022-04-12] MEDS ORDERED: morphine INJ 10 MG/ML 1ML (SYR OR VIAL) IVP STA ×2 (14:01→15:33)
--- NOTE | 2022-04-12 14:08 | ED Respiratory ---
General Chief Complaint: Respiratory Problems Stated Complaint: SOB Nursing Triage Note: PT TO RM 5 BY WC WITH COMPLAINT OF SOA SINCE MONDAY. PT HAS HX OF COPD, WEARS 3LNC ALL TIME AT HOME. PT WAS 75% ON 3L ON ARRIVAL. STATES SHE HAS ALSO HAD FEVER AND CHILLS. Source: patient Exam Limitations: no limitations (THA JIMENEZ APRN) History of Present Illness Date Seen by Provider: Apr 12, 2022 Time Seen by Provider: 14:03 Initial Comments Pt is a 61 yo female who presents via private vehicle for SOA. Pt is in acute distress upon arrival. Pt is [place] in color and working to breath. Pt reports SOA started last . Pt has a history of COPD. Pt is a smoker, but states she has not smoked in about 3 weeks. Pt denies fevers. Timing/Duration: week Severity: severe Associated Symptoms: denies symptoms (THA JIMENEZ APRN) Allergies and Home Medications Allergies Coded Allergies: No Known Drug Allergies (Unverified , 04/12/22) Patient Home Medication List Home Medication List Reviewed: Yes (THA JIMENEZ APRN) Albuterol Sulfate (Ventolin Hfa) 1 Puff Puff, 2 PUFF IH Q4H PRN for SHORTNESS OF BREATH, (Reported) Entered as Reported by: BRISA CASTILLO on 10/07/21 1544 Alprazolam (Alprazolam) 0.5 Mg Tablet, 0.5 MG PO TID PRN for ANXIETY, (Reported) Entered as Reported by: BRISA CASTILLO on 10/07/21 1544 Amoxicillin/Potassium Clav (Amox Tr-K Clv 875-125 mg Tab) 875 Mg-125 Mg Tablet, 875 MG PO BID WITH MEALS Prescribed by: RATNA HERRERA on 10/09/21 1112 Budesonide/Formoterol Fumarate (Symbicort 160-4.5 Mcg Inhaler) 160 Mcg-4.5 Mcg/Actuation Hfa.aer.ad, 2 PUFF IH BID, (Reported) Entered as Reported by: BRISA CASTILLO on 10/07/21 1544 Celecoxib (Celebrex) 200 Mg Capsule, 200 MG PO DAILY, (Reported) Entered as Reported by: BRISA CASTILLO on 10/07/21 1544 Cholecalciferol (Vitamin D3) (Vitamin D3) 125 Mcg (5000 Unit) Tablet, 125 MCG PO DAILY, (Reported) Entered as Reported by: BRISA CASTILLO on 10/07/21 154 Gabapentin (Neurontin) 300 Mg Capsule, 600 MG PO HS, (Reported) Entered as Reported by: BRISA CASTILLO on 10/07/21 154 Gabapentin (Neurontin) 300 Mg Capsule, 300 MG PO DAILY, (Reported) Entered as Reported by: BRISA CASTILLO on 10/07/21 154 Magnesium Oxide (Magnesium) 400 Mg Magnesium Tablet, 400 MG PO DAILY, (Reported) Entered as Reported by: BRISA CASTILLO on 10/07/21 154 Multivits-Min/Iron/FA/Lutein (Centrum Silver Women Tablet) 8 Mg Iron-400 Mcg-300 Mcg Tablet, 1 EACH PO DAILY, (Reported) Entered as Reported by: BRISA CASTILLO on 10/07/21 154 Prednisone (Prednisone) 10 Mg Tab.ds.pk, 10 MG PO DAILY Prescribed by: RATNA HERRERA on 10/09/21 111 Ubidecarenone (Co Q10) 200 Mg Capsule, 200 MG PO DAILY, (Reported) Entered as Reported by: BRISA CASTILLO on 10/07/211543 Umeclidinium Emmalena (Incruse Ellipta) 62.5 Mcg/Actuation Blst.w.dev, 1 PUFF IH DAILY, (Reported) Entered as Reported by: BRISA CASTILLO on 10/07/21 154 Review of Systems Review of Systems Constitutional: No fever Respiratory: short of breath Cardiovascular: no symptoms reported (THA JIMENEZ APRN) Past Sazulnt-Lkabbd-Tumkej Hx Patient Social History Tobacco Use?: Yes Tobacco type used: Cigarettes Smoking Status: Current Someday Smoker Use of E-Cig and/or Vaping dev: No Substance use?: No Alcohol Use?: No Pt feels they are or have been: No (THA JIMENEZ APRN) Immunizations Up To Date Tetanus Booster (TDap): More than 5yrs First/Initial COVID19 Vaccinat: PFIZER 07/03/20 Second COVID19 Vaccination Vincent: PFIZER 07/24/20 Third COVID19 Vaccination Date: PFIZER 02/09/21 (THA JIMENEZ APRN) Seasonal Allergies Seasonal Allergies: No (THA JIMENEZ APRN) Past Medical History Surgeries: Yes Cardiac, Hysterectomy Respiratory: Yes Pneumonia, COPD Cardiac: Yes Coronary Artery Disease Neurological: No Reproductive Disorders: No 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 oz. kg; 27.50 BMI Method:Estimated General Appearance: severe distress Neck: supple, normal inspection Respiratory: respiratory distress, decreased breath sounds, accessory muscle use, wheezing Cardiovascular: tachycardia Skin: other ([place]) (THA JIMENEZ APRN) Focused Exam Lactate Level 04/12/22 14:02: Lactic Acid Level 4.22*H (FOZIA COCHRAN MD) Lactic Acid Level Laboratory Tests Test 04/12/22 14:02 Lactic Acid Level 4.22 MMOL/L (0.50-2.00) *H (FOZIA COCHRAN MD) Progress/Results/Core Measures Suspected Sepsis Recent Fever Within 48 Hours: No Infection Criteria Present: Suspected New Infection New/Unexplained Altered Menta: No Within 3hrs of presentation: Admin fluids, Blood cultures prior to ABX's, Lactate level SIRS Temperature: Pulse: 132 Respiratory Rate: 30 Laboratory Tests 04/12/22 14:02: White Blood Count 14.0H Blood Pressure 161 /146 Mean: 151 04/12/22 14:02: Lactic Acid Level 4.22*H Laboratory Tests 04/12/22 14:02: Creatinine 0.77, INR Comment 1.0, Platelet Count 219, Total Bilirubin 0.5 (THA JIMENEZ APRN) Results/Orders Lab Results Laboratory Tests Test 04/12/22 14:02 04/12/22 14:06 Range/Units White Blood Count 14.0 H 4.3-11.0 10^3/uL Red Blood Count 4.72 3.80-5.11 10^6/uL Hemoglobin 14.0 11.5-16.0 g/dL Hematocrit 43 35-52 % Mean Corpuscular Volume 91 80-99 fL Mean Corpuscular Hemoglobin 30 25-34 pg Mean Corpuscular Hemoglobin Concent 33 32-36 g/dL Red Cell Distribution Width 13.0 10.0-14.5 % Platelet Count 219 130-400 10^3/uL Mean Platelet Volume 10.8 9.0-12.2 fL Immature Granulocyte % (Auto) 1 % Neutrophils (%) (Auto) 79 H 42-75 % Lymphocytes (%) (Auto) 14 12-44 % Monocytes (%) (Auto) 5 0-12 % Eosinophils (%) (Auto) 1 0-10 % Basophils (%) (Auto) 1 0-10 % Neutrophils # (Auto) 11.1 H 1.8-7.8 10^3/uL Lymphocytes # (Auto) 1.9 1.0-4.0 10^3/uL Monocytes # (Auto) 0.7 0.0-1.0 10^3/uL Eosinophils # (Auto) 0.1 0.0-0.3 10^3/uL Basophils # (Auto) 0.1 0.0-0.1 10^3/uL Immature Granulocyte # (Auto) 0.2 H 0.0-0.1 10^3/uL Neutrophils % (Manual) 8 % Lymphocytes % (Manual) 16 % Monocytes % (Manual) 4 % Blood Morphology Comment NORMAL Prothrombin Time 13.5 12.2-14.7 SEC INR Comment 1.0 0.8-1.4 Activated Partial Thromboplast Time 33 24-35 SEC Sodium Level 130 L 135-145 MMOL/L Potassium Level 4.1 3.6-5.0 MMOL/L Chloride Level 90 L 98-107 MMOL/L Carbon Dioxide Level 27 21-32 MMOL/L Anion Gap 13 5-14 MMOL/L Blood Urea Nitrogen 7 7-18 MG/DL Creatinine 0.77 0.60-1.30 MG/DL Estimat Glomerular Filtration Rate 87 BUN/Creatinine Ratio 9 Glucose Level 147 H 70-105 MG/DL Lactic Acid Level 4.22 *H 0.50-2.00 MMOL/L Calcium Level 9.2 8.5-10.1 MG/DL Corrected Calcium 9.2 8.5-10.1 MG/DL Total Bilirubin 0.5 0.1-1.0 MG/DL Aspartate Amino Transf (AST/SGOT) 51 H 5-34 U/L Alanine Aminotransferase (ALT/SGPT) 29 0-55 U/L Alkaline Phosphatase 64 40-136 U/L Total Protein 7.7 6.4-8.2 GM/DL Albumin 4.0 3.2-4.5 GM/DL Procalcitonin 0.30 H <0.10 NG/ML Influenza Type A (RT-PCR) Detected H Not Detecte Influenza Type B (RT-PCR) Not Detected Not Detecte SARS-CoV-2 RNA (RT-PCR) Not Detected Not Detecte Blood Gas Puncture Site RIGHT RADIAL Blood Gas Patient Temperature 36.8 Arterial Blood pH 7.30 *L 7.37-7.43 Arterial Blood Partial Pressure CO2 58 H 35-45 MMHG Arterial Blood Partial Pressure O2 236 H 79-93 MMHG Arterial Blood HCO3 28 H 23-27 MMOL/L Arterial Blood Total CO2 29.7 21.0-31.0 MMOL/L Arterial Blood Oxygen Saturation 100 94-100 % Arterial Blood Base Excess 2.1 -2.5-2.5 MMOL/L Sudhir Test POSITIVE Blood Gas Ventilator Setting NO Blood Gas Inspired Oxygen UNK (FOZIA COCHRAN MD) My Orders Orders - FOZIA COCHRAN MD Cbc With Automated Diff (04/12/22 14:01) Comprehensive Metabolic Panel (04/12/22 14:01) Blood Culture (04/12/22 14:01) Sputum Culture (04/12/22 14:01) Urinalysis (04/12/22 14:01) Urine Culture (04/12/22 14:01) Protime With Inr (04/12/22 14:01) Partial Thromboplastin Time (04/12/22 14:01) Chest 1 View, Ap/Pa Only (04/12/22 14:01) Ed Iv/Invasive Line Start (04/12/22 14:01) Ed Iv/Invasive Line Start (04/12/22 14:01) Vital Signs Adult Sepsis Patie Q15M (04/12/22 14:01) O2 (04/12/22 14:01) Remove Rings In Anticipation O (04/12/22 14:01) Lactic Acid Analyzer (04/12/22 14:01) Procalcitonin (Pct) (04/12/22 14:01) Arterial Blood Gas (04/12/22 14:01) Morphine Injection (Morphine Injection (04/12/22 14:01) Albuterol Pre-Mix Nebs (Rt) (Proventil (04/12/22 14:15) Albuterol/Ipra Inhalation Soln (Duoneb I (04/12/22 14:15) Svn Small Volume Nebulizer (04/12/22 14:01) Svn Small Volume Nebulizer (04/12/22 14:01) Methylprednisolone Sod Succ (Solu-Medrol (04/12/22 14:15) Ns Iv 1000 Ml (Sodium Chloride 0.9%) (04/12/22 14:15) Manual Differential (04/12/22 14:02) Covid 19 Inhouse Test (04/12/22 14:56) Influenza A And B By Pcr (04/12/22 14:56) Isolation Central Supply Req (04/12/22 14:56) Ct Angio Chest W (04/12/22 15:17) Cefepime Injection (Maxipime Injection) (04/12/22 15:30) Azithromycin Injection (Zithromax Inject (04/12/22 15:30) Ed Admission (Communication) (04/12/22 15:26) (FOZIA COCHRAN MD) Medications Given in ED Current Medications Medications Dose Ordered Sig/Magda Route Start Time Stop Time Status Last Admin Dose Admin Albuterol Sulfate 12.5 mg ONCE ONCE INH 04/12/22 14:15 04/12/22 14:16 DC 04/12/22 14:16 12.5 MG Albuterol/ Ipratropium 3 ml ONCE ONCE INH 04/12/22 14:15 04/12/22 14:16 DC 04/12/22 14:16 3 ML Methylprednisolone Sodium Succinate 125 mg ONCE ONCE IVP 04/12/22 14:15 04/12/22 14:16 DC 04/12/22 14:09 125 MG (FOZIA COCHRAN MD) Vital Signs/I&O 04/12/22 04/12/22 04/12/22 04/12/22 13:55 13:55 13:55 14:17 Temp 36.8 Pulse 132 135 Resp 30 30 B/P (MAP) 161/146 (151) Pulse Ox 75 100 O2 Delivery Nasal Cannula Nasal Cannula O2 Flow Rate 3.00 3.00 80.00 (FOZIA COCHRAN MD) Vital Signs/I&O Capillary Refill : Less Than 3 Seconds (THA JIMENEZ APRN) Blood Pressure Mean: 151 Progress Note #1: Time: 14:05 Progress Note Severe respiratory distress upon arrival, work up for sepsis initiated, pt placed on bi-pap for increased work of breathing and [place] color. Breathing treatments ordered for decreased breath sounds with slight wheeze. Progress Note #2: Time: 15:35 Progress Note Pt appears to be breathing better, respirations have slowed. Pt states she is feeling a little better. Progress Note #3: Time: 15:56 Progress Note CTA and antibiotics ordered per request by Dr. Herrera (THA JIMENEZ APRN) Diagnostic Imaging Diagonstic Imaging: Xray Plain Films/CT/US/NM/MRI: chest Comments Date of Exam:04/12/22 CHEST 1 VIEW, AP/PA ONLY INDICATION: Respiratory distress. Comparison with 10/07/2021. FINDINGS: Portable chest. The lungs show hyperaeration with flattening of the diaphragm. There is interstitial lung disease bilaterally. No consolidated infiltrates are present. The heart is not enlarged. No pneumothorax or pleural effusion. IMPRESSION: Chronic obstructive interstitial lung disease without consolidated infiltrates. Dictated on workstation # [id number] Dict: 04/12/22 1438 Trans: 04/12/22 1446 [id number] Interpreted by: TREVOR RODRÍGUEZ MD Electronically signed by: Diagonstic Imaging: CT Plain Films/CT/US/NM/MRI: chest Comments Date of Exam:04/12/22 CT ANGIO CHEST W PROCEDURE: CT angiography of the chest with contrast. TECHNIQUE: Multiple contiguous axial images were obtained through the chest after uneventful bolus administration of intravenous contrast. 3D reconstructed CTA MIP acquisitions were also performed. Auto Exposure Controls were utilized during the CT exam to meet ALARA standards for radiation dose reduction. INDICATION: Shortness of breath, COPD, flu-like symptoms. COMPARISONS: 07/14/2015. FINDINGS: There is no axillary adenopathy. There are a few shotty benign-appearing mediastinal nodes, but no definite mediastinal or hilar adenopathy. There is some hilar peribronchial cuffing with some central bronchiectatic changes. Cardiac contour is normal. There is a trace pericardial effusion. Coronary artery calcifications are present. Thoracic aortic contour is also normal. There are a few nonaneurysmal calcifications of the thoracic aorta as well as some calcifications at the origin of the great vessels. Pulmonary outflow tract as well as the right and left pulmonary arteries, their segmental and subsegmental branches are patent with no evidence of intraluminal thrombus to suggest pulmonary embolism. Lung windows show COPD with bullous emphysematous changes. As noted earlier, there are some bronchiectatic changes in all five lobes more prominent in the lower lobes. There is an 8 mm nodule in the right costophrenic recess. There are no confluent consolidations, effusions, or pneumothorax seen. Limited assessment of the abdomen shows uniform attenuation within the visualized liver. Spleen, GE junction, stomach, and visualized duodenum are normal. Pancreas shows sharp margins. There is prominent calcification of the splenic artery. Visualized kidneys show symmetrical perfusion of contrast. Visualized gallbladder is grossly unremarkable. IMPRESSION: 1. There is COPD with chronic parenchymal changes with bullous emphysematous changes, more prominent in the upper lobes. 2. There is development of bronchiectasis in all five lobes, more prominently in the lower lobes. There is also prominent peribronchial cuffing as may be seen with bronchitis. Some associated scattered interstitial infiltrates are seen in all five lobes, but no confluent consolidations. 3. 8 mm nodule in the right costophrenic recess, short-term follow-up in three months is recommended. 4. Coronary artery calcifications. There is also a small pericardial effusion. 5. There is no CT angiographic evidence for aortic aneurysm, dissection, or pulmonary embolism. Additional nonemergent findings as described above. Dictated on workstation # [id number] Dict: 04/12/22 1602 Trans: 04/12/22 1635 [id number] Interpreted by: CLARA NORRIS MD Electronically signed by: (THA JIMENEZ APRN) Critical Care Note Critical Care Start Time: 14:03 Total Time (minutes) 40 minutes Progress Critical care time based on time with patient including reassessments, reviewing chart, interpretation of labs and imaging, and discussion with admitting provider. (THA JIMENEZ APRN) Departure Communication (Admissions) Time/Spoke to Admitting Phy: 15:[address] Herrera (FOZIA COCHRAN MD) Impression Primary Impression: Acute respiratory failure Qualified Codes: J96.01 - Acute respiratory failure with hypoxia Additional Impressions: COPD exacerbation Influenza A Disposition: 09 ADMITTED INPATIENT Condition: Stable Admissions Decision to Admit Reason: Admit from ER (General) (THA JIMENEZ APRN) Decision to Admit Reason: Admit from ER (General) Decision to Admit/Date: Apr 12, 2022 Time/Decision to Admit Time: 16:00 (FOZIA COCHRAN MD) Departure-Patient Inst. Referrals: NO,LOCAL PHYSICIAN (PCP/Family) Primary Care Physician THA JIMENEZ APRN Apr 12, 2022 14:07 FOZIA COCHRAN MD Apr 12, 2022 16:57
[2022-04-12 14:12] LABS: BASOPHILS # (AUTO) 0.1 10^3/uL (0.0-0.1); BASOPHILS % (AUTO) 1 % (0-10); EOSINOPHILS # (AUTO) 0.1 10^3/uL (0.0-0.3); EOSINOPHILS % (AUTO) 1 % (0-10); HEMATOCRIT 43 % (35-52); LYMPHOCYTES # (AUTO) 1.9 10^3/uL (1.0-4.0); LYMPHOCYTES % (AUTO) 14 % (12-44); MEAN CORPUSCULAR HEMOGLOBIN 30 pg (25-34); MEAN CORPUSCULAR HGB CONC 33 g/dL (32-36); MEAN CORPUSCULAR VOLUME 91 fL (80-99); MEAN PLATELET VOLUME 10.8 fL (9.0-12.2); MONOCYTES # (AUTO) 0.7 10^3/uL (0.0-1.0); MONOCYTES % (AUTO) 5 % (0-12); NEUTROPHILS # (AUTO) 11.1 10^3/uL (1.8-7.8); NEUTROPHILS % (AUTO) 79 % (42-75); PLATELET COUNT 219 10^3/uL (130-400)
[2022-04-12 14:14] LABS: ABG BASE EXCESS 2.1 MMOL/L (-2.5-2.5); ABG OXYGEN SATURATION 100 % (94-100); ABG PCO2 58 MMHG (35-45); ABG PO2 236 MMHG (79-93); ABG TCO2 29.7 MMOL/L (21.0-31.0)
[2022-04-12] MEDS ORDERED: methylPREDNISolone 125 MG (Solu-MEDROL) VIAL IVP ONE (14:15)
[2022-04-12] MEDS ORDERED: RT-ALBUTEROL SULF 2.5 MG/3 ML PRE-MIX VIAL INH ONE (14:15)
[2022-04-12] MEDS ORDERED: RT-ALBUTEROL/IPRATROPIUM 3 ML (DUONEB) VIAL INH ONE (14:15)
[2022-04-12] MEDS ORDERED: NS IV 1000 ML 1,000 ML IV SCH (14:15)
[2022-04-12 14:17] VITALS: BP 137/75
[2022-04-12 14:18] LABS: ALLENS TEST POSITIVE; PATIENT TEMP 36.8; VENTILATOR NO
[2022-04-12 14:24] LABS: PROTHROMBIN TIME PATIENT 13.5 SEC (12.2-14.7)
[2022-04-12 14:25] LABS: POTASSIUM 4.1 MMOL/L (3.6-5.0)
[2022-04-12 14:26] LABS: CALCIUM 9.2 MG/DL (8.5-10.1)
[2022-04-12 14:28] LABS: TOTAL PROTEIN 7.7 GM/DL (6.4-8.2)
[2022-04-12 14:29] LABS: BILIRUBIN,TOTAL 0.5 MG/DL (0.1-1.0)
[2022-04-12 14:31] LABS: CREATININE SERUM 0.77 MG/DL (0.60-1.30)
[2022-04-12 14:35] LABS: LYMPHOCYTES % (MANUAL) 16 %; MONOCYTES % (MANUAL) 4 %; NEUTROPHILS % (MANUAL) 8 %; RBC MORPH NORMAL
--- NOTE | 2022-04-12 14:47 | Diagnostic Imaging Report ---
INDICATION: Respiratory distress. Comparison with 10/07/2021. FINDINGS: Portable chest. The lungs show hyperaeration with flattening of the diaphragm. There is interstitial lung disease bilaterally. No consolidated infiltrates are present. The heart is not enlarged. No pneumothorax or pleural effusion. IMPRESSION: Chronic obstructive interstitial lung disease without consolidated infiltrates. Dictated by: Dictated on workstation # [id number]
[2022-04-12] MEDS ORDERED: CEFEPIME INJECTION 1,000 MG in NS (IVPB) 50 ML IV ONE (15:30)
[2022-04-12] MEDS ORDERED: NS 100 ML (IVPB) BAG IV ONE (15:30)
[2022-04-12] MEDS ORDERED: IOHEXOL 350 MG/ML 100 ML (OMNIPAQUE 350) VIAL IV ONE (15:30)
[2022-04-12] MEDS ORDERED: CATHETER FLUSH 10 ML SYR IV PRN (15:30)
[2022-04-12] MEDS ORDERED: AZITHROMYCIN INJECTION 500 MG in NS (IVPB) 250 ML IV ONE (15:30)
[2022-04-12] MEDS ORDERED: morphine INJ 10 MG/ML 1ML (SYR OR VIAL) ONE (15:33)
--- NOTE | 2022-04-12 16:35 | Diagnostic Imaging Report ---
PROCEDURE: CT angiography of the chest with contrast. TECHNIQUE: Multiple contiguous axial images were obtained through the chest after uneventful bolus administration of intravenous contrast. 3D reconstructed CTA MIP acquisitions were also performed. Auto Exposure Controls were utilized during the CT exam to meet ALARA standards for radiation dose reduction. INDICATION: Shortness of breath, COPD, flu-like symptoms. COMPARISONS: 07/14/2015. FINDINGS: There is no axillary adenopathy. There are a few shotty benign-appearing mediastinal nodes, but no definite mediastinal or hilar adenopathy. There is some hilar peribronchial cuffing with some central bronchiectatic changes. Cardiac contour is normal. There is a trace pericardial effusion. Coronary artery calcifications are present. Thoracic aortic contour is also normal. There are a few nonaneurysmal calcifications of the thoracic aorta as well as some calcifications at the origin of the great vessels. Pulmonary outflow tract as well as the right and left pulmonary arteries, their segmental and subsegmental branches are patent with no evidence of intraluminal thrombus to suggest pulmonary embolism. Lung windows show COPD with bullous emphysematous changes. As noted earlier, there are some bronchiectatic changes in all five lobes more prominent in the lower lobes. There is an 8 mm nodule in the right costophrenic recess. There are no confluent consolidations, effusions, or pneumothorax seen. Limited assessment of the abdomen shows uniform attenuation within the visualized liver. Spleen, GE junction, stomach, and visualized duodenum are normal. Pancreas shows sharp margins. There is prominent calcification of the splenic artery. Visualized kidneys show symmetrical perfusion of contrast. Visualized gallbladder is grossly unremarkable. IMPRESSION: 1. There is COPD with chronic parenchymal changes with bullous emphysematous changes, more prominent in the upper lobes. 2. There is development of bronchiectasis in all five lobes, more prominently in the lower lobes. There is also prominent peribronchial cuffing as may be seen with bronchitis. Some associated scattered interstitial infiltrates are seen in all five lobes, but no confluent consolidations. 3. 8 mm nodule in the right costophrenic recess, short-term follow-up in three months is recommended. 4. Coronary artery calcifications. There is also a small pericardial effusion. 5. There is no CT angiographic evidence for aortic aneurysm, dissection, or pulmonary embolism. Additional nonemergent findings as described above. Dictated by: Dictated on workstation # [id number]
[2022-04-12] MEDS ORDERED: diphenhydrAMINE 25 MG TAB (BENADRYL) PO PRN (17:00)
[2022-04-12] MEDS ORDERED: CALCIUM CARBONATE 500 MG (TUMS) TAB.CHEW PO PRN (17:00)
[2022-04-12] MEDS ORDERED: diphenhydrAMINE 50 MG/ML INJ (BENADRYL) IVP PRN (17:00)
[2022-04-12] MEDS ORDERED: MELATONIN 3 MG TABLET PO PRN (17:00)
[2022-04-12] MEDS ORDERED: ONDANSETRON 4 MG/2 ML (SDV) Z0FRAN IV PRN (17:00)
[2022-04-12] MEDS ORDERED: ANTACID SUSP 30 ML UDC (MYLANTA) PO PRN (17:00)
[2022-04-12] MEDS ORDERED: ACETAMINOPHEN 325 MG TABLET PO PRN (17:00)
[2022-04-12] MEDS ORDERED: ONDANSETRON 4 MG (ZOFRAN) ORAL DISSOLVE TAB PO PRN (17:00)
[2022-04-12] MEDS ORDERED: NS IV 500 ML 500 ML IV PRN (17:00)
[2022-04-12] MEDS ORDERED: LACTULOSE SYRUP 10GM/15ML (ENULOSE) 30ML UDC PO PRN (17:00)
[2022-04-12] MEDS ORDERED: BISACODYL 10 MG SUPP (DULCOLAX) PR PRN (17:00)
[2022-04-12] MEDS ORDERED: polyethylene glycoL POWDER 17 GM (MIRALAX) PACK PO PRN (17:00)
[2022-04-12] MEDS ORDERED: MILK OF MAGNESIA 400 MG/5 ML 30 ML UDC PO PRN (17:00)
[2022-04-12] MEDS: NS IV 1000 ML 1,000 ML IV SCH (17:16)
[2022-04-12] MEDS: ENOXAPARIN 40 MG/0.4 ML (LOVENOX) SYR SC SCH (17:17)
[2022-04-12 17:20] VITALS: BP 86/49
[2022-04-12 17:20] LABS: ABG BASE EXCESS -1.2 MMOL/L (-2.5-2.5); ABG OXYGEN SATURATION 96 % (94-100); ABG PCO2 54 MMHG (35-45); ABG PO2 81 MMHG (79-93); ABG TCO2 26.8 MMOL/L (21.0-31.0)
[2022-04-12 17:24] LABS: ABG PH 7.28 (7.37-7.43); ALLENS TEST POSITIVE
[2022-04-12 17:25] LABS: INSPIRED O2 40%; PATIENT TEMP 96.3; VENTILATOR YES
[2022-04-12] MEDS ORDERED: RT-ALBUTEROL/IPRATROPIUM 3 ML (DUONEB) VIAL INH PRN (17:30)
--- NOTE | 2022-04-12 17:48 | Tele-ICU Consult ---
History of Present Illness History of Present Illness Date Seen by Provider: Apr 12, 2022 Time Seen by Provider: 17:47 Date of Admission (Tele-ICU Physician , consultation as per request of PCP Service provided via interactive audio and video telecommunications E-CARE system to a patient admitted to ICU bed in [facility]. Available chart/ vitals / labs / Images reviewed H&P is from ER notes Patient's information available about PMH, Shx, Fhx allergy reviewed inEMR. ROS as per chart and RN report Now in ICU, hemodynamically stable Video assessment done using teleICU camera, rest of exam as per RN Discussed with RN. Consultants: Hospital course: A/P Acute resp failure ( hypoxic , hypercapneic) with AECOPD and viral infection 9 CTA - no PE ) - on BIPAP 05/10 40 % rr26 tv 600s MV 12L - follow abg at 21.00 Anxiety on NIPPV - add precedex Influenza A - ? duration of symptoms - add tamilu , await bedside MD bentley AECOPD - nebs - - IV steroids Chronic hypoxic resp failure withCOPD/empysema - on 5 l baseline LRTI/ bronchitis - CTA chest 04/12 - no PNA - bronchiectasis by CT - cont ABX Elev lactate - with hypoxia and WOB - not represents sepsis severety - follow Lines : periph , (Central Line Necessity Reviewed) Diane: OG: Nutrition: Analgesia: Anxiety/ delirium VTE Prophylaxis: vito 40 Stress Ulcer Prophylaxis: ppi Glycemic Control: Plans in collaboration with bedside consultants and IM MDs. Discussed with RN to reach out if any questions or concerns A total of 33 minutes of critical care time was devoted to this patient today, required to treat and/or prevent further deterioration of critical care condition ( as above ) . I am remotely monitoring this patient from another state. I am unable to do the bedside exam, and history/physical and pertinent information is taken from other notes in the computer and bedside staff. . Allergies and Home Medications Allergies Coded Allergies: No Known Drug Allergies (Unverified , 04/12/22) Home Medications Albuterol Sulfate 1 Puff Puff, 2 PUFF IH Q4H PRN for SHORTNESS OF BREATH, (Reported) Alprazolam 0.5 Mg Tablet, 0.5 MG PO TID PRN for ANXIETY, (Reported) Amoxicillin/Potassium Clav 875 Mg-125 Mg Tablet, 875 MG PO BID WITH MEALS Prescribed by: RATNA HERRERA on 10/09/211111 Budesonide/Formoterol Fumarate 160 Mcg-4.5 Mcg/Actuation Hfa.aer.ad, 2 PUFF IH BID, (Reported) Celecoxib 200 Mg Capsule, 200 MG PO DAILY, (Reported) Cholecalciferol (Vitamin D3) 125 Mcg (5000 Unit) Tablet, 125 MCG PO DAILY, (Reported) Gabapentin 300 Mg Capsule, 600 MG PO HS, (Reported) TAKES 2 (300MG) TABS LAST FILLED 08-13-2021 #60/ DAY SUPPLY Gabapentin 300 Mg Capsule, 300 MG PO DAILY, (Reported) LAST FILLED 08-13-2021 #60/ DAY SUPPLY Magnesium Oxide 400 Mg Magnesium Tablet, 400 MG PO DAILY, (Reported) Multivits-Min/Iron/FA/Lutein 8 Mg Iron-400 Mcg-300 Mcg Tablet, 1 EACH PO DAILY, (Reported) Prednisone 10 Mg Tab.ds.pk, 10 MG PO DAILY Take 6 tabs(60mg)daily,decrease by 1 tab(10MG)daily. Prescribed by: RATNA HERRERA on 10/09/211111 Ubidecarenone 200 Mg Capsule, 200 MG PO DAILY, (Reported) Umeclidinium [place] 62.5 Mcg/Actuation Blst.w.dev, 1 PUFF IH DAILY, (Reported) Past Medical/Social/Family Hx Patient Social History Tobacco Use?: Yes Tobacco type used: Cigarettes Smoking Status: Current Someday Smoker Use of E-Cig and/or Vaping dev: No Substance use?: No Alcohol Use?: No Pt stated abuse/neglect: No Immunizations Up To Date Influenza Vaccine Up-to-Date: Yes; Up-to-Date First/Initial COVID19 Vaccinat: PFIZER 07/03/20 Second COVID19 Vaccination Vincent: Brayola 07/24/20 Tetanus Booster (TDap): Less Than 5 Years Hepatitis A: No Hepatitis B: Yes TB Skin Test: None Date of Pneumonia Vaccine: Feb 01, 2009 Current Status status: No status: No Advance Directives: No Communicates: Verbally Primary Language: Jordanian Preferred Spoken Language: Jordanian Implanted or Applied Medical D: None Review of Systems Constitutional: see HPI Focused Exam Lactate Level 04/12/22 14:02: Lactic Acid Level 4.22*H 04/12/22 17:30: Height, Weight, BMI Height: '" Weight: lbs. oz. kg; 24.80 BMI Method:Estimated Lactic Acid Level Laboratory Tests Test 04/12/22 14:02 04/12/22 17:30 Lactic Acid Level 4.22 MMOL/L (0.50-2.00) *H Exam Exam Patient acknowledged, consented, and participated in this virtual visit which was conducted using real time audio/video Vital Signs Date Time Temp Pulse Resp B/P (MAP) Pulse Ox O2 Delivery O2 Flow Rate FiO2 04/12/22 17:22 35.8 04/12/22 17:20 36.8 102 89 40 04/12/22 17:15 98 19 107/57 (74) 95 NIV Bilevel 40.00 04/12/22 17:01 102 04/12/22 17:00 101 17 86/49 (61) 89 NIV Bilevel 40.00 04/12/22 16:50 99 20 97/69 98 04/12/22 16:45 102 17 116/76 (89) 89 NIV Bilevel 40.00 04/12/22 14:17 135 30 100 80.00 04/12/22 13:55 Nasal Cannula 3.00 04/12/22 13:55 Nasal Cannula 04/12/22 13:55 36.8 132 30 161/146 (151) 75 3.00 Height & Weight Height: '" Weight: lbs. oz. kg; 24.80 BMI Method:Estimated General Appearance: Other Capillary Refill: Less Than 3 Seconds Results Lab Laboratory Tests 04/12/22 14:02 Assessment/Plan Assessment/Plan 1 JC LANDON MD Apr 12, 2022 17:48
[2022-04-12] MEDS ORDERED: DexMEDEtomidine 250 ML DRIP 250 ML IV ONE (17:53)
[2022-04-12] MEDS: DexMEDEtomidine 250 ML DRIP 250 ML IV SCH (17:55)
[2022-04-12] MEDS: OSELTAMIVIR 75 MG (TAMIFLU) CAPSULE PO SCH (18:45)
[2022-04-12 19:31] VITALS: BP 96/58
[2022-04-12] MEDS: RT-ALBUTEROL/IPRATROPIUM 3 ML (DUONEB) VIAL INH SCH ×2 (19:31→21:57)
[2022-04-12] MEDS: methylPREDNISolone 125 MG (Solu-MEDROL) VIAL IVP SCH (19:43)
[2022-04-12] MEDS: DOCUSATE SODIUM 100 MG (COLACE) CAP PO SCH (20:31)
[2022-04-12] MEDS: SENNOSIDES 8.6 MG (SENOKOT) TAB PO SCH (20:31)
[2022-04-12 21:39] LABS: ABG OXYGEN SATURATION 97 % (94-100); ABG PCO2 51 MMHG (35-45); ABG PO2 84 MMHG (79-93); ABG TCO2 26.4 MMOL/L (21.0-31.0)
[2022-04-12 21:42] LABS: ALLENS TEST YES-POS; INSPIRED O2 40%; PATIENT TEMP 35.9; VENTILATOR NO
[2022-04-12 21:57] VITALS: BP 106/58
[2022-04-12] MEDS: CEFEPIME INJECTION 1,000 MG in NS (IVPB) 50 ML IV SCH (22:35)
[2022-04-13] MEDS ORDERED: CEFEPIME INJECTION 1,000 MG in NS (IVPB) 50 ML IV SCH ×2
[2022-04-13] MEDS: NS IV 1000 ML 1,000 ML IV SCH (01:48)
[2022-04-13] MEDS: methylPREDNISolone 125 MG (Solu-MEDROL) VIAL IVP SCH ×4 (01:48→20:45)
[2022-04-13 02:44] VITALS: BP 99/58
[2022-04-13] MEDS: RT-ALBUTEROL/IPRATROPIUM 3 ML (DUONEB) VIAL INH SCH ×6 (02:44→21:25)
[2022-04-13] MEDS: CEFEPIME INJECTION 1,000 MG in NS (IVPB) 50 ML IV SCH ×4 (04:45→22:27)
[2022-04-13 05:42] LABS: BASOPHILS % (AUTO) 0 % (0-10); EOSINOPHILS % (AUTO) 0 % (0-10); HEMATOCRIT 32 % (35-52); HEMOGLOBIN 10.5 g/dL (11.5-16.0); LYMPHOCYTES # (AUTO) 0.9 10^3/uL (1.0-4.0); LYMPHOCYTES % (AUTO) 12 % (12-44); MEAN CORPUSCULAR HEMOGLOBIN 30 pg (25-34); MEAN CORPUSCULAR HGB CONC 33 g/dL (32-36); MEAN CORPUSCULAR VOLUME 92 fL (80-99); MEAN PLATELET VOLUME 11.1 fL (9.0-12.2); MONOCYTES # (AUTO) 0.4 10^3/uL (0.0-1.0); MONOCYTES % (AUTO) 5 % (0-12); NEUTROPHILS # (AUTO) 6.4 10^3/uL (1.8-7.8); NEUTROPHILS % (AUTO) 83 % (42-75); PLATELET COUNT 161 10^3/uL (130-400); WHITE BLOOD COUNT 7.8 10^3/uL (4.3-11.0)
[2022-04-13 06:16] LABS: CALCIUM 7.7 MG/DL (8.5-10.1); CREATININE SERUM 0.64 MG/DL (0.60-1.30); MAGNESIUM 1.7 MG/DL (1.6-2.4); POTASSIUM 3.8 MMOL/L (3.6-5.0)
[2022-04-13] MEDS: OSELTAMIVIR 75 MG (TAMIFLU) CAPSULE PO SCH ×2 (06:23→17:38)
[2022-04-13] MEDS: POTASSIUM CL 10MEQ/50ML IVPB 50 ML IV SCH (06:26)
[2022-04-13] MEDS: MAGNESIUM 1 GM/100 ML IVPB 100 ML IV SCH ×3 (06:26→08:23)
[2022-04-13] MEDS: KCL 20 MEQ TAB (K-DUR) PO SCH (06:26)
[2022-04-13 06:40] VITALS: BP 103/60
[2022-04-13 07:05] LABS: ABG BASE EXCESS -1.3 MMOL/L (-2.5-2.5); ABG OXYGEN SATURATION 97 % (94-100); ABG PCO2 53 MMHG (35-45); ABG PO2 83 MMHG (79-93); ABG TCO2 26.5 MMOL/L (21.0-31.0)
[2022-04-13 07:09] LABS: ALLENS TEST YES-POS; INSPIRED O2 30%; PATIENT TEMP 35.8; VENTILATOR NO
[2022-04-13 07:11] LABS: ABG PH 7.28 (7.37-7.43)
[2022-04-13] MEDS: PANTOPRAZOLE 40 MG (PROTONIX) VIAL IV SCH (08:23)
[2022-04-13] MEDS: AZITHROMYCIN INJECTION 500 MG in NS (IVPB) 250 ML IV SCH (08:24)
[2022-04-13] MEDS: DOCUSATE SODIUM 100 MG (COLACE) CAP PO SCH ×2 (08:37→20:45)
[2022-04-13] MEDS: SENNOSIDES 8.6 MG (SENOKOT) TAB PO SCH ×2 (08:38→20:45)
--- NOTE | 2022-04-13 10:15 | Tele-ICU Progress Note ---
Subjective Date Seen by a Provider: Apr 13, 2022 Time Seen by a Provider: 10:14 Subjective/Events-last exam (Tele-ICU Physician , Progress Note ) Service provided via interactive audio and video telecommunications E-CARE system to a patient admitted to ICU bed in [facility]. Available chart/ vitals / labs / Images reviewed Video assessment done using teleICU camera, rest of exam as per RN Discussed with RN Events overnight : Afebrile hemodynamically stable Respiratory - 30 % bibpap I/O = Drips: ns STOPPED Pressors- no Consultants: Hospital course: (04/12) 61F admitted for influenza A/severe COPD--normally on 3L NC , on . bipap precedex 04/13- Patient is seen today due to persistent resp failure A/P Acute resp failure ( hypoxic , hypercapneic) with AECOPD and viral infection ( CTA - no PE ) - on BIPAP / 30 % rr21 tv 550s MV 12L - follow abg - still has resp acidosis - will try OFF PRECEDEX , OFF BIPAP , up in the bed - follow ABG Anxiety on NIPPV - add precedex 0/ Influenza A - ? duration of symptoms - add tamilu , await bedside MD bentley AECOPD - nebs - - IV steroids Chronic hypoxic resp failure withCOPD/empysema - on 5 l baseline LRTI/ bronchitis - CTA chest 04/12 - no PNA - bronchiectasis by CT - cont ABX Hyponatremia - mild , resolving Anemia - no bleeding , probably delutional - follow Elev lactate - with hypoxia and WOB - not represents sepsis severety - RESOLVED promptly Lines : periph , (Central Line Necessity Reviewed) Diane: OG: Nutrition: Analgesia: Anxiety/ delirium VTE Prophylaxis: vito 40 Stress Ulcer Prophylaxis: ppi Plans in collaboration with bedside consultants and IM MDs. Discussed with RN to reach out if any questions or concerns A total of 33 minutes of critical care time was devoted to this patient today, required to treat and/or prevent further deterioration of critical care condition ( as above ) . I am remotely monitoring this patient from another state. I am unable to do the bedside exam, and history/physical and pertinent information is taken from other notes in the computer and bedside staff. . Sepsis Event Evaluation Height, Weight, BMI Height: '" Weight: lbs. oz. kg; 24.80 BMI Method:Estimated Focused Exam Lactate Level 04/12/22 14:02: Lactic Acid Level 4.22*H 04/12/22 17:30: Lactic Acid Level 1.43 Exam Exam Patient acknowledged, consented, and participated in this virtual visit which was conducted using real time audio/video Vital Signs Date Time Temp Pulse Resp B/P (MAP) Pulse Ox O2 Delivery O2 Flow Rate FiO2 04/13/22 09:00 79 22 104/68 (80) 99 NIV Bilevel 30.00 04/13/22 08:00 36.0 04/13/22 08:00 97 NIV Bilevel 30 04/13/22 08:00 81 14 99/60 (73) 90 NIV Bilevel 30.00 04/13/22 07:00 85 20 105/64 (78) 95 NIV Bilevel 30.00 04/13/22 07:00 85 04/13/22 06:40 80 19 97 30.00 04/13/22 06:00 79 18 101/58 (72) 90 NIV Bilevel 30.00 04/13/22 05:00 81 19 100/57 (71) 92 NIV Bilevel 30.00 04/13/22 04:47 93 NIV Bilevel 30 04/13/22 04:00 82 17 104/62 (76) 91 NIV Bilevel 30.00 04/13/22 03:32 35.8 04/13/22 03:15 NIV Bilevel 30.00 04/13/22 03:00 82 18 98/57 (71) 94 NIV Bilevel 40.00 04/13/22 02:44 78 19 97 40.00 04/13/22 02:00 80 17 95/60 (72) 97 NIV Bilevel 40.00 04/13/22 01:00 81 04/13/22 01:00 86 18 96/56 (69) 96 NIV Bilevel 40.00 04/13/22 00:00 93 23 97/59 (72) 97 NIV Bilevel 40.00 04/12/22 23:59 95 NIV Bilevel 40 04/12/22 23:55 36.1 04/12/22 23:00 89 18 106/60 (75) 97 NIV Bilevel 40.00 04/12/22 22:00 85 17 96/62 (73) 99 NIV Bilevel 40.00 04/12/22 21:57 86 20 99 40.00 04/12/22 21:00 85 18 106/58 (74) 93 NIV Bilevel 40.00 04/12/22 20:10 93 NIV Bilevel 40 04/12/22 20:00 86 18 98/54 (69) 93 NIV Bilevel 40.00 04/12/22 19:43 36.2 04/12/22 19:31 87 22 93 40.00 04/12/22 19:00 87 04/12/22 19:00 90 24 103/62 (76) 94 NIV Bilevel 40.00 04/12/22 18:00 96 39 119/64 (82) 94 NIV Bilevel 40.00 04/12/22 17:55 102 112/88 04/12/22 17:45 99 29 112/88 (96) 96 NIV Bilevel 40.00 04/12/22 17:30 99 20 112/56 (74) 95 NIV Bilevel 40.00 04/12/22 17:22 35.8 04/12/22 17:20 36.8 102 89 40 04/12/22 17:15 98 19 107/57 (74) 95 NIV Bilevel 40.00 04/12/22 17:01 102 04/12/22 17:00 101 17 86/49 (61) 89 NIV Bilevel 40.00 04/12/22 16:50 99 20 97/69 98 04/12/22 16:50 92 NIV Bilevel 40 04/12/22 16:45 102 17 116/76 (89) 89 NIV Bilevel 40.00 04/12/22 14:17 135 30 100 80.00 04/12/22 13:55 Nasal Cannula 3.00 04/12/22 13:55 Nasal Cannula 04/12/22 13:55 36.8 132 30 161/146 (151) 75 3.00 I & O 04/13/22 07:00 Intake Total 2400 ml Output Total 350 ml Balance 2050 ml Height & Weight Height: '" Weight: lbs. oz. kg; 24.80 BMI Method:Estimated General Appearance: Other Capillary Refill: Less Than 3 Seconds Results Lab Laboratory Tests 04/12/22 14:02 04/13/22 05:21 Assessment/Plan Assessment/Plan 1 JC LANDON MD Apr 13, 2022 10:15
[2022-04-13 10:21] VITALS: BP 105/61
[2022-04-13] MEDS ORDERED: GABA300C PO (10:40)
[2022-04-13] MEDS ORDERED: ATOR40TA70 PO (10:40)
[2022-04-13] MEDS ORDERED: DULO60CA59 PO (10:40)
[2022-04-13] MEDS ORDERED: BUSP10TA95 PO (10:40)
[2022-04-13] MEDS ORDERED: HYDR-3584 PO (10:49)
[2022-04-13 14:39] LABS: ABG BASE EXCESS -1.2 MMOL/L (-2.5-2.5); ABG OXYGEN SATURATION 95 % (94-100); ABG PCO2 48 MMHG (35-45); ABG PO2 70 MMHG (79-93); ABG TCO2 25.8 MMOL/L (21.0-31.0)
[2022-04-13 14:40] LABS: ALLENS TEST YES-POS; INSPIRED O2 30%; PATIENT TEMP 35.8; VENTILATOR NO
[2022-04-13 15:06] LABS: ABG PH 7.32 (7.37-7.43)
[2022-04-13] MEDS ORDERED: NICOTINE 14 MG (NICODERM) PATCH TD PRN (17:00)
--- NOTE | 2022-04-13 17:06 | History & Physical-Hospitalist ---
History of Present Illness HPI/Chief Complaint Duyen Major is a 61 year old female with PMH COPD, tobacco abuse, anxiety, who presented with shortness of breath. She is wearing BiPAP during my exam. She has been feeling ill for several days. She reports fevers. She reports nausea. She denies chest pain. She denies abdominal pain. She was found to have influenza A in the ER. 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 Patients Allergies have been reviewed. Allergies Allergies Coded Allergies No Known Drug Allergies (Zcqaibyili24/20/22) Past Nlcegpu-Oesugk-Npetbu Hx Patient Social History Tobacco Use?: Yes Tobacco type used: Cigarettes Smoking Status: Current Someday Smoker Use of E-Cig and/or Vaping dev: No Substance use?: No Alcohol Use?: No Pt feels they are or have been: No Immunizations Up To Date Date of Influenza Vaccine: Apr 10, 2022 First/Initial COVID19 Vaccinat: PFIZER 07/03/20 Second COVID19 Vaccination Vincent: PFIZER 07/24/20 Tetanus Booster (TDap): Less Than 5 Years Hepatitis A: No Hepatitis B: Yes Date of Pneumonia Vaccine: Feb 01, 2009 Seasonal Allergies Seasonal Allergies: No Current Status status: No status: No Advance Directives: No Communicates: Verbally Primary Language: Kazakh Preferred Spoken Language: Kazakh Implanted or Applied Medical D: None Past Medical History Surgeries: Cardiac, Hysterectomy Pneumonia, COPD 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 oz. kg; 24.80 BMI Method:Estimated General Appearance: No Apparent Distress, WD/WN HEENT: PERRL/EOMI, Pharynx Normal Neck: Normal Inspection, Supple Respiratory: No Respiratory Distress, Decreased Breath Sounds Cardiovascular: Regular Rate, Rhythm, No Murmur Gastrointestinal: Normal Bowel Sounds, Soft Extremity: Normal Inspection, No Pedal Edema Neurologic/Psychiatric: Alert, Normal Mood/Affect Skin: Normal Color, Warm/Dry Results Results/Procedures Labs Laboratory Tests 04/12/22 14:02 04/13/22 05:21 Patient resulted labs reviewed. Imaging: Reviewed Imaging Report Assessment/Plan Admission Diagnosis Acute on chronic respiratory failure with hypoxia and hypercapnia Admission Status: Inpatient Order (span 2 midnights) Reason for Inpatient Admission: Flu Lower respiratory tract infection Assessment and Plan Acute on chronic respiratory failure with hypoxia and hypercapnia Acute COPD exacerbation with LRTI Bronchiectasis Influenza A BiPAP, wean as tolerated Supplemental oxygen as needed, baseline reportedly 3 L Tamiflu Cefepime and Azithromycin Steroids MAT protocol TeleICU following Continue home inhalers Pulmonary nodule [address] Follow up in 3 months Tobacco abuse Nicotine patch Anxiety Continue home meds Precedex as needed with BiPAP DVT prophylaxis: Lovenox Critical Care Critically Ill Patient Diagnosis/Problems Diagnosis/Problems (1) Acute on chronic respiratory failure with hypoxia and hypercapnia Status: Acute (2) COPD exacerbation Status: Acute (3) Influenza A Status: Acute (4) Bronchiectasis Status: Acute (5) Pulmonary nodule less than 1 cm in diameter with moderate to high risk for malignant neoplasm Status: Acute MICHAELLE HERRERA MD Apr 13, 2022 17:06
[2022-04-13] MEDS ORDERED: hydrOXYzine (ATARAX) 10 MG TAB PO PRN (17:15)
[2022-04-13] MEDS ORDERED: NICOTINE PATCH REMOVAL TP PRN (17:30)
[2022-04-13] MEDS: ENOXAPARIN 40 MG/0.4 ML (LOVENOX) SYR SC SCH (17:38)
[2022-04-13] MEDS: busPIRone 10 MG (BUSPAR) TAB PO SCH (20:45)
[2022-04-13] MEDS: GABAPENTIN 300 MG (NEURONTIN) CAP PO SCH (20:45)
[2022-04-13] MEDS: DULoxetine 30 MG (CYMBALTA) CAP PO SCH (20:46)
[2022-04-13] MEDS ORDERED: NON-FORMULARY MEDICATION 1 EA EA (Budesonide/Formoterol Fumarate (Symbicort 160-4.5 Mcg In IH SCH (21:00)
[2022-04-13] MEDS ORDERED: NON-FORMULARY MEDICATION 1 EA EA (Duloxetine HCl 60 MG) PO SCH (21:00)
[2022-04-13] MEDS: RT--FLUTICASONE/SALMETEROL 232-14 (AIRDUO RespiCLICK) IH SCH (21:25)
[2022-04-13] MEDS: UMECLIDINIUM BROMIDE (INCRUSE ELLIPTA) 7'S IH SCH (21:25)
[2022-04-13] MEDS ORDERED: NS IV 500 ML 500 ML ONE (22:18)
[2022-04-13] MEDS: NS IV 500 ML 500 ML IV SCH (22:24)
[2022-04-14] MEDS: methylPREDNISolone 125 MG (Solu-MEDROL) VIAL IVP SCH ×3 (01:29→15:46)
[2022-04-14] MEDS: DexMEDEtomidine 250 ML DRIP 250 ML IV SCH (02:06)
[2022-04-14 02:28] VITALS: BP 105/61
[2022-04-14] MEDS: RT-ALBUTEROL/IPRATROPIUM 3 ML (DUONEB) VIAL INH SCH ×6 (02:29→23:20)
[2022-04-14] MEDS: CEFEPIME INJECTION 1,000 MG in NS (IVPB) 50 ML IV SCH ×4 (03:53→23:05)
[2022-04-14 04:10] LABS: BASOPHILS % (AUTO) 0 % (0-10); EOSINOPHILS % (AUTO) 0 % (0-10); HEMATOCRIT 32 % (35-52); HEMOGLOBIN 10.5 g/dL (11.5-16.0); LYMPHOCYTES # (AUTO) 1.3 10^3/uL (1.0-4.0); LYMPHOCYTES % (AUTO) 16 % (12-44); MEAN CORPUSCULAR HEMOGLOBIN 30 pg (25-34); MEAN CORPUSCULAR HGB CONC 33 g/dL (32-36); MEAN CORPUSCULAR VOLUME 91 fL (80-99); MEAN PLATELET VOLUME 11.3 fL (9.0-12.2); MONOCYTES # (AUTO) 0.4 10^3/uL (0.0-1.0); MONOCYTES % (AUTO) 4 % (0-12); NEUTROPHILS # (AUTO) 6.6 10^3/uL (1.8-7.8); NEUTROPHILS % (AUTO) 79 % (42-75); PLATELET COUNT 196 10^3/uL (130-400); WHITE BLOOD COUNT 8.3 10^3/uL (4.3-11.0)
[2022-04-14 04:36] LABS: POTASSIUM 4.4 MMOL/L (3.6-5.0)
[2022-04-14 04:37] LABS: CALCIUM 8.1 MG/DL (8.5-10.1)
[2022-04-14 04:41] LABS: CREATININE SERUM 0.68 MG/DL (0.60-1.30)
[2022-04-14] MEDS: POTASSIUM CL 10MEQ/50ML IVPB 50 ML IV SCH (04:55)
[2022-04-14] MEDS: KCL 20 MEQ TAB (K-DUR) PO SCH (04:55)
[2022-04-14] MEDS: MAGNESIUM 1 GM/100 ML IVPB 100 ML IV SCH (04:55)
[2022-04-14] MEDS: OSELTAMIVIR 75 MG (TAMIFLU) CAPSULE PO SCH ×2 (05:11→17:59)
[2022-04-14] MEDS: RT--FLUTICASONE/SALMETEROL 232-14 (AIRDUO RespiCLICK) IH SCH ×2 (07:37→19:17)
[2022-04-14] MEDS: busPIRone 10 MG (BUSPAR) TAB PO SCH ×2 (08:32→21:54)
[2022-04-14] MEDS: PANTOPRAZOLE 40 MG (PROTONIX) VIAL IV SCH (08:32)
[2022-04-14] MEDS: SENNOSIDES 8.6 MG (SENOKOT) TAB PO SCH ×2 (08:32→21:55)
[2022-04-14] MEDS: DULoxetine 30 MG (CYMBALTA) CAP PO SCH ×2 (08:32→21:55)
[2022-04-14] MEDS: DOCUSATE SODIUM 100 MG (COLACE) CAP PO SCH ×2 (08:32→21:55)
[2022-04-14] MEDS: AZITHROMYCIN INJECTION 500 MG in NS (IVPB) 250 ML IV SCH (08:32)
[2022-04-14] MEDS ORDERED: ALPRAZolam 0.5 MG (XANAX) TAB PO PRN (09:15)
--- NOTE | 2022-04-14 09:18 | Tele-ICU Progress Note ---
Subjective Date Seen by a Provider: Apr 14, 2022 Time Seen by a Provider: 09:17 Subjective/Events-last exam (Tele-ICU Physician , Progress Note ) Service provided via interactive audio and video telecommunications E-CARE system to a patient admitted to ICU bed in [facility]. Available chart/ vitals / labs / Images reviewed Video assessment done using teleICU camera, rest of exam as per RN Discussed with RN Events overnight : Afebrile hemodynamically stable Respiratory - 30 % bibpap I/O = Drips: ns STOPPED - resumed NS 30 Pressors- no Consultants: Hospital course: (04/12) 61F admitted for influenza A/severe COPD--normally on 3L NC , on . bipap precedex 04/13- BIPAP 14/6 30 % rr21 tv 550s MV 12L --> off precedex , off bipap Patient is seen today due to persistent resp failure A/P Acute resp failure ( hypoxic , hypercapneic) with AECOPD and viral infection ( CTA - no PE ) - OFF BIPAP day time , cont . NC 2 L - repeat abg today afternoon Anxiety on NIPPV - add precedex 0.4-0.8 - careful with benzo - need better regiment Influenza A - ? duration of symptoms - add tamilu , await bedside MD bentley AECOPD - nebs - - IV steroids - TO DECREASE TODAY to q8h Chronic hypoxic resp failure withCOPD/empysema - on 5 l baseline LRTI/ bronchitis - CTA chest 04/12 - no PNA - bronchiectasis by CT - cont ABX Hyponatremia - mild , resolving Anemia - no bleeding , probably delutional - follow Elev lactate - with hypoxia and WOB - not represents sepsis severety - RESOLVED promptly Lines : periph , (Central Line Necessity Reviewed) Diane: + OG: Nutrition: po Analgesia: Anxiety/ delirium VTE Prophylaxis: vito 40 Stress Ulcer Prophylaxis: ppi Plans in collaboration with bedside consultants and IM MDs. Discussed with RN to reach out if any questions or concerns A total of 33 minutes of critical care time was devoted to this patient today, required to treat and/or prevent further deterioration of critical care condition ( as above ) . I am remotely monitoring this patient from another state. I am unable to do the bedside exam, and history/physical and pertinent information is taken from other notes in the computer and bedside staff. . Sepsis Event Evaluation Height, Weight, BMI Height: '" Weight: lbs. oz. kg; 24.80 BMI Method:Estimated Focused Exam Lactate Level 04/12/22 14:02: Lactic Acid Level 4.22*H 04/12/22 17:30: Lactic Acid Level 1.43 Exam Exam Patient acknowledged, consented, and participated in this virtual visit which was conducted using real time audio/video Vital Signs Date Time Temp Pulse Resp B/P (MAP) Pulse Ox O2 Delivery O2 Flow Rate FiO2 04/14/22 08:00 96 29 135/80 (98) 98 Nasal Cannula 2.00 04/14/22 07:46 100 High Flow N/C 2.00 04/14/22 07:45 97 High Flow N/C 2.00 04/14/22 07:44 High Flow N/C 3.00 04/14/22 07:44 35.8 04/14/22 07:37 99 High Flow N/C 3.00 04/14/22 07:00 74 17 144/83 (103) 99 NIV Bilevel 30.00 04/14/22 07:00 74 04/14/22 06:39 76 123/68 04/14/22 06:00 74 41 123/69 (87) 100 NIV Bilevel 30.00 04/14/22 05:00 71 20 133/77 (95) 96 NIV Bilevel 30.00 04/14/22 04:10 71 142/81 04/14/22 04:00 80 32 119/71 (87) 90 NIV Bilevel 30.00 04/14/22 04:00 94 NIV Bilevel 30 04/14/22 03:33 36.0 04/14/22 03:00 76 15 124/64 (84) 98 NIV Bilevel 30.00 04/14/22 02:28 71 20 96 30.00 04/14/22 02:06 73 122/70 04/14/22 02:00 72 15 118/66 (83) 100 NIV Bilevel 30.00 04/14/22 01:04 74 04/14/22 01:00 66 22 112/66 (81) 100 NIV Bilevel 30.00 04/14/22 00:00 69 18 118/69 (85) 100 NIV Bilevel 30.00 04/14/22 00:00 98 NIV Bilevel 30 04/13/22 23:39 36.2 04/13/22 23:00 74 21 113/69 (84) 100 NIV Bilevel 30.00 04/13/22 22:37 71 18 120/70 (87) 100 NIV Bilevel 30.00 04/13/22 22:00 72 20 119/71 (87) 100 Nasal Cannula 4.00 04/13/22 21:25 99 High Flow N/C 4.00 04/13/22 21:15 100 Nasal Cannula 4.00 04/13/22 21:00 73 19 121/68 (85) 99 Nasal Cannula 4.00 04/13/22 20:00 35.2 04/13/22 20:00 100 Nasal Cannula 4.00 04/13/22 20:00 78 22 118/71 (87) 100 Nasal Cannula 4.00 04/13/22 19:30 79 04/13/22 19:00 77 22 107/70 (82) 100 Nasal Cannula 4.00 04/13/22 18:35 99 High Flow N/C 4.00 04/13/22 18:00 84 18 122/66 (84) 99 Nasal Cannula 4.00 04/13/22 17:00 78 18 115/62 (79) 100 Nasal Cannula 4.00 04/13/22 16:00 98 Nasal Cannula 4.00 04/13/22 16:00 91 19 135/73 (93) 99 Nasal Cannula 4.00 04/13/22 16:00 35.7 04/13/22 15:02 99 High Flow N/C 4.00 04/13/22 15:00 85 21 125/66 (85) 99 Nasal Cannula 4.00 04/13/22 14:00 86 22 129/68 (88) 100 Nasal Cannula 4.00 04/13/22 13:29 90 04/13/22 13:00 78 21 114/70 (85) 92 Nasal Cannula 4.00 04/13/22 12:00 80 18 109/68 (82) 100 Nasal Cannula 4.00 04/13/22 12:00 97 Nasal Cannula 4.00 04/13/22 11:00 79 18 112/65 (81) 99 Nasal Cannula 4.00 04/13/22 10:30 Nasal Cannula 4.00 04/13/22 10:21 71 20 96 30.00 04/13/22 10:00 75 16 109/65 (80) 97 NIV Bilevel 30.00 I & O 04/14/22 07:00 Intake Total 1705 ml Output Total 675 ml Balance 1030 ml Height & Weight Height: '" Weight: lbs. oz. kg; 24.80 BMI Method:Estimated General Appearance: No Apparent Distress, WD/WN HEENT: PERRL/EOMI, Pharynx Normal Neck: Normal Inspection, Supple Respiratory: No Respiratory Distress, Decreased Breath Sounds Cardiovascular: Regular Rate, Rhythm, No Murmur Capillary Refill: Less Than 3 Seconds Extremity: Normal Inspection, No Pedal Edema Neurologic/Psychiatric: Alert, Normal Mood/Affect Skin: Normal Color, Warm/Dry Results Lab Laboratory Tests 04/12/22 14:02 04/13/22 05:21 04/14/22 03:57 Assessment/Plan Assessment/Plan 1 JC LANDON MD Apr 14, 2022 09:18
[2022-04-14] MEDS ORDERED: ALPRAZolam 0.5 MG (XANAX) TAB PO ONE (10:00)
--- NOTE | 2022-04-14 11:10 | Physical Therapy Evaluation ---
PT Evaluation-General Medical Diagnosis Admission Date Apr 12, 2022 at 15:28 Medical Diagnosis: resp. 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 2-Qempctprfr-inwojwi completes the activity by him/herself with no assistance from a helper. 5-Set-up or Clean-up Assistance-helper sets up or cleans up; patient completes activity. Aspen assists only prior to or following the activity. 4-Supervision or Touching Assistance-helper provides verbal cues and/or touching/steadying and/or contact guard assistance as patient completes activity. Assistance may be provided throughout the activity or intermittently. 3-Partial/Moderate Assistance-helper does LESS THAN HALF the effort. Aspen lifts, holds or supports trunk or limbs, but provides less than half the effort. 2-Substantial/Maximal Assistance-helper does MORE THAN HALF the effort. Aspen lifts or holds trunk or limbs and provides more than half the effort. 4-Rjyoattav-dinyrj does ALL the effort. Patient does none of the effort to complete the activity. Or, the assistance of 2 or more helpers is required for the patient to complete the activity. If activity was not attempted, code reason: 7-Patient Refused. 9-Not Applicable-not attempted and the patient did not perform the activity before the current illness, exacerbation or injury. 10-Not Attempted due to Environmental Limitations-(lack of equipment, weather restraints, etc.). 88-Not Attempted due to Medical Conditions or Safety Concerns. Bed Mobility: 6 Transfers (B,C,W/C): 6 Gait: 6 Stairs: 6 Indoor Mobility (Ambulation): Independent Stairs: Independent PT Evaluation-Current Subjective Patient in bed pre tx, agrees to PT, has no complaints of pain. Pt/Family Goals to be independent at home Objective Patient Orientation: Person, Place, Situation Attachments: Oxygen, Diane Catheter, IV ROM/Strength ROM Lower Extremities WNL Strength Lower Extremities LLE (hip flexion 3+/5, knee flexion 4/5, knee extension 4/5, dorsiflexion 3+/5), RLE (hip flexion 3+/5, knee flexion 4/5, knee extension 4/5, dorsiflexion 3+/5) Sensory Hearing: Functional Sensation Right Lower Extremit: Intact Sensation Left Lower Extremity: Intact Transfers Roll Left to Right (QC): 6 Lying to Sitting/Side of Bed(Q: 6 Sit to Stand (QC): 4 Chair/Zuz-lq-Lgwlk Xfer(QC): 4 CGA for sit to stand and transfer, patient is very shaky upon standing, transfers to recliner, she is able to take several steps to the recliner, very shaky but no LOB Balance Sitting Static: Normal Sitting Dynamic: Normal Standing Static: Fair Standing Dynamic: Fair Treatment BLE seated exercises x20 (AP, LAQ) Assessment/Needs Patient in recliner post tx with nurse call, phone, tray, all needs met. Patient has impaired mobility, strength, endurance. Very shaky during transfers and ambulation. Her O2 dropped to 87% on 2L but came up to 90% quickly after sitting back down. Rehab Potential: Fair PT Prison Goals Prison Goals PT Prison Goals Time Frame: Apr 21, 2022 Roll Left & Right (QC): 6 Sit to Lying (QC): 6 Lying-Sitting on Side/Bed(QC): 6 Sit to Stand (QC): 6 Chair/Wls-fd-Oonbl Xfer(QC): 6 Walk 10 feet (QC): 6 Walk 50ft with 2 Turns (QC): 6 Walk 150 ft (QC): 6 PT Plan Problem List Problem List: Activity Tolerance, Functional Strength, Safety, Balance, Gait, Transfer, Bed Mobility, ROM Treatment/Plan Treatment Plan: Continue Plan of Care Treatment Plan: Bed Mobility, Education, Functional Activity Ancelmo, Functional Strength, Gait, Safety, Therapeutic Exercise, Transfers Treatment Duration: Apr 21, 2022 Frequency: 6 times per week Estimated Hrs Per Day: .25 hour per day Patient and/or Family Agrees t: Yes Safety Risks/Education Patient Education: Gait Training, Transfer Techniques, Correct Positioning, Safety Issues Teaching Recipient: Patient Teaching Methods: Demonstration, Discussion Response to Teaching: Reinforcement Needed Discharge Recommendations Plan Patient will perform bed mobility and transfer training, balance and endurance training, functional strengthening, stair training, gait training, and education, to improve functional mobility and independence at home. Therapy Discharge Recommendati: Home & Family, Post Acute PT Time Time In: 1035 Time Out: 1050 DATE: Apr 14, 2022 Total Billed Treatment Time: 15 Total Billed Treatment 1 visit TIMBO 15' LAUREANO BRIZUELA PT Apr 14, 2022 11:10
--- NOTE | 2022-04-14 11:30 | Progress Note - Hospitalist ---
Subjective HPI/CC On Admission Date Seen by Provider: Apr 14, 2022 Time Seen by Provider: 09:25 Duyen Major is a 61 year old female with PMH COPD, tobacco abuse, anxiety, who presented with shortness of breath. She is wearing BiPAP during my exam. She has been feeling ill for several days. She reports fevers. She reports nausea. She denies chest pain. She denies abdominal pain. She was found to have influenza A in the ER. Subjective/Events-last exam She is anxious. She is not short of breath. She denies pain. Focused Exam Lactate Level 04/12/22 14:02: Lactic Acid Level 4.22*H 04/12/22 17:30: Lactic Acid Level 1.43 Objective Exam Vital Signs Vital Signs Date Time Temp Pulse Resp B/P (MAP) Pulse Ox O2 Delivery O2 Flow Rate FiO2 04/14/22 11:13 Room Air 04/14/22 11:09 95 2.00 04/14/22 11:00 90 30 123/89 (100) 04/14/22 07:44 35.8 04/14/22 04:00 30 Capillary Refill : Less Than 3 Seconds General Appearance: No Apparent Distress, Anxious, Chronically ill Respiratory: No Respiratory Distress, Decreased Breath Sounds Cardiovascular: Regular Rate, Rhythm, No Murmur Gastrointestinal: Normal Bowel Sounds, Soft Extremity: Normal Inspection, No Pedal Edema Neurologic/Psychiatric: Alert, Motor Weakness Skin: Normal Color, Warm/Dry Results/Procedures Lab Laboratory Tests 04/14/22 03:57 Patient resulted labs reviewed. Imaging: Reviewed Imaging Report Assessment/Plan Assessment and Plan Assess & Plan/Chief Complaint Acute on chronic respiratory failure with hypoxia and hypercapnia Acute COPD exacerbation with LRTI Bronchiectasis Influenza A Off BiPAP Repeat ABG later this afternoon Supplemental oxygen as needed, baseline reportedly 3 L, currently on room air Tamiflu Cefepime and Azithromycin Transition to oral steroids MAT protocol TeleICU following Continue home inhalers Anxiety Wean Precedex as able Add Xanax Continue home meds Debility PT/OT IRU evaluation Pulmonary nodule [address] Follow up in 3 months Tobacco abuse Nicotine patch DVT prophylaxis: Lovenox Critical Care Critically Ill Patient Diagnosis/Problems Diagnosis/Problems (1) Acute on chronic respiratory failure with hypoxia and hypercapnia Status: Acute (2) COPD exacerbation Status: Acute (3) Influenza A Status: Acute (4) Bronchiectasis Status: Acute (5) Pulmonary nodule less than 1 cm in diameter with moderate to high risk for malignant neoplasm Status: Acute RATNA HERRERA MD Apr 14, 2022 11:30
--- NOTE | 2022-04-14 11:35 | Occupational Therapy Eval ---
OT Evaluation-General/PLF Medical Diagnosis Admission Date Apr 12, 2022 at 15:28 Medical Diagnosis: resp. failure, influenza A, COPD exacerbation Onset Date: Apr 12, 2022 Therapy Diagnosis Therapy Diagnosis: reduced adl status Precautions Precautions/Isolations: Droplet Isolation, Fall Prevention Referral Physician: Jyoti Heller Reason: Evaluation/Treatment Medical History Pertinent Medical History: COPD, Smoking Current History Pt presents with SOA, found to be positive for Influenza A. Per patient, she lives with her son and grandkids in a 2nd floor apartment, no elevator access. Pt was indep with adls and her son manages all iadls. Pt was not using any AD at baseline. Reviewed History: Yes Social History Home: Apartment Current Living Status: Children Entry Into Home: Stairs With Railing Steps Into Home: 27 ADL-Prior Level of Function SCALE: Activities may be completed with or without assistive devices. 3-Dxjejuzzup-gzywqex completes the activity by him/herself with no assistance from a helper. 5-Set-up or Clean-up Assistance-helper sets up or cleans up; patient completes activity. [place] assists only prior to or following the activity. 4-Supervision or Touching Assistance-helper provides verbal cues and/or t ouching/steadying and/or contact guard assistance as patient completes activity. Assistance may be provided throughout the activity or intermittently. 3-Partial/Moderate Assistance-helper does LESS THAN HALF the effort. [place] lifts, holds or supports trunk or limbs, but provides less than half the effort. 2-Substantial/Maximal Assistance-helper does MORE THAN HALF the effort. [place] lifts or holds trunk or limbs and provides more than half the effort. 9-Dqvdkfetr-yunjgp does ALL the effort. Patient does none of the effort to complete the activity. Or, the assistance of 2 or more helpers is required for the patient to complete the activity. If activity was not attempted, code reason: 7-Patient Refused. 9-Not Applicable-not attempted and the patient did not perform the activity before the current illness, exacerbation or injury. 10-Not Attempted due to Environmental Limitations-(lack of equipment, weather restraints, etc.). 88-Not Attempted due to Medical Conditions or Safety Concerns. Self Care: Independent Functional Cognition: Independent OT Current Status Subjective Pt in denial that she has the flu. "I'm going to punch the next person who says I have the flu, nobody really knows what I have, they just say that." Appearance Pt returned to sitting in recliner, all needs within reach, RN notified. Mental Status/Objective Patient Orientation: Person, Place Attachments: Diane Catheter, IV, Telemetry Current Glasses/Contacts: Yes Hearing Aids: No Dentures/Partials: Yes Hand Dominance: Right Upper Extremity ROM WFL Upper Extremity Strength 4/5 throughout ADL-Treatment Eating (QC): 6 On/Off Footwear (QC): 4 Toileting Hygiene (QC): 3 Pt able to don/doff bilateral socks in figure 4 method with supervision. SOA notable during task, O2 drops to 88%, improves with cues and rest. Pt stood with SBA, mild unsteadiness. Requires at least 1 UE support to maintain balance. Oxygen desats to mid 70's, unable to recover in standing. Extra time (>90 sec) and seated rest break needed to return to 90%. Pt reports that she wears 3L oxygen at baseline, however RN reports they are trying to wean her off due to CO2 build up. At this time, pt could benefit from short term OT to address energy conservation strategies, breathing strategies, endurance, and strength needed for functional tasks. Education OT Patient Education: Correct positioning, Energy conservation, Modified ADL techniques, Purpose of tx/functional activities, Safety issues, Transfer techniques Teaching Recipient: Patient Teaching Methods: Demonstration, Discussion Response to Teaching: Verbalize Understanding, Return Demonstration, Reinforcement Needed OT Men'S Swim Coach Goals Men'S Swim Coach Goals Time Frame: Apr 22, 2022 Oral Hygiene (QC): 6 Toileting Hygiene (QC): 5 Shower/Bathe Self (QC): 4 Upper Body Dressing (QC): 6 Lower Body Dressing (QC): 5 On/Off Footwear (QC): 5 Additional Goals: 1-Demonstrate ADL Tasks, 2-Verbalize Understanding, 3- ImproveStrength/Ancelmo 1=Demonstrate adherence to instructed precautions during ADL tasks. 2=Patient will verbalize/demonstrate understanding of assistive devices/modifications for ADL. 3=Patient will improve strength/tolerance for activity to enable patient to perform ADL's. OT Education/Plan Problem List/Assessment Assessment: Decreased Activ Tolerance, Decreased UE Strength, Impaired Funct Balance, Impaired I ADL's, Impaired Self-Care Skills Discharge Recommendations Plan/Recommendations: Continue POC Target Placement ongoing assessment Treatment Plan/Plan of Care Treatment,Training & Education: Yes Patient would benefit from OT for education, treatment and training to promote independence in ADL's, mobility, safety and/or upper extremity function for ADL's. Plan of Care: ADL Retraining, Functional Mobility, Group Exercise/Act as Ind, UE Funct Exercise/Act Treatment Duration: Apr 22, 2022 Frequency: 3 times per week (3-5x/week ) Estimated Hrs Per Day: .25 hour per day Rehab Potential: Fair Time Start Time: 11:08 Stop Time: 11:25 DATE: Apr 14, 2022 Total Time Billed (hr/min): 17 Billed Treatment Time 1 visit Sonia Desouza OT Apr 14, 2022 11:35
[2022-04-14 15:10] LABS: ABG BASE EXCESS -1.4 MMOL/L (-2.5-2.5); ABG OXYGEN SATURATION 97 % (94-100); ABG PCO2 46 MMHG (35-45); ABG PO2 90 MMHG (79-93); ABG TCO2 25.1 MMOL/L (21.0-31.0)
[2022-04-14 15:13] LABS: ABG PH 7.33 (7.37-7.43); ALLENS TEST YES-POS; INSPIRED O2 ROOM AIR; PATIENT TEMP 37; VENTILATOR NO
[2022-04-14] MEDS: NS IV 500 ML 500 ML IV SCH (15:45)
[2022-04-14] MEDS: ENOXAPARIN 40 MG/0.4 ML (LOVENOX) SYR SC SCH (15:46)
[2022-04-14] MEDS ORDERED: cloNIDine 0.1 MG (CATAPRES) TAB PO ONE (17:00)
--- NOTE | 2022-04-14 19:07 | Physician Query Clarification ---
Physician Query-General Query to Physician: The medical record reflects the following clinical scenario: The patient, in the setting of History/Risk factors, Hx of COPD and chronic respiratory failure on 3L 02 Clinical Findings Influenza A pos, "She has been feeling ill for several days. She reports fevers", SpO2 75% sat on 3 L on arrival to ER, Treatment ER: Bipap and 02 up to 80%, albuterol , Solu-Medrol IV, Tamiflu, normal saline 1 L, cefepime IV, azithromycin IV, IV Question: Can you specify if Acute Respiratory failure is likely due to/associated with Influenza A infection? 1.Yes - Acute Hypoxic Respiratory Failure is likely due to/associated with Influenza 2. No - Acute Hypoxic Respiratory Failure is not due to/associated with Influenza A 3. Other, with explanation of the clinical findings 4. Clinically undetermined, no explanation for the clinical findings Please clarify and document your clinical opinion in the Progress Notes and Discharge Summary including the definitive and/or presumptive diagnosis, (suspected or probable), related to the above clinical findings. Please include clinical findings supporting your diagnosis. In responding to this query, please exercise your independent professional judgment. The purpose of this communication is to more accurately reflect the complexity of your patients condition. The fact that a question is asked does not imply that any particular answer is desired or expected. Thank you for timely response to this clarification. Thea Chávez RN, MSN Clinical [employer] Senior Officer [phone] [email or web address] PHYSICIAN RESPONSE: Based on the clinical findings in the record, please respond to the query above on this document as an addendum. Physician Response: Physician Response 1 If you have questions please contact: Escrow Officer: Ext: Thank you for your time and cooperation. Clinical [employer] Senior Officer/Escrow Officer This is a permanent part of the medical record THEA CHÁVEZ Apr 14, 2022 19:07 RATNA HERRERA MD Apr 15, 2022 08:04
[2022-04-14] MEDS ORDERED: cloNIDine 0.1 MG (CATAPRES) TAB PO SCH (21:00)
[2022-04-14] MEDS: ALPRAZolam 0.5 MG (XANAX) TAB PO SCH (21:54)
[2022-04-14] MEDS: GABAPENTIN 300 MG (NEURONTIN) CAP PO SCH (21:55)
[2022-04-14] MEDS: UMECLIDINIUM BROMIDE (INCRUSE ELLIPTA) 7'S IH SCH (23:20)
[2022-04-14 23:37] VITALS: BP 133/101
[2022-04-15] MEDS: methylPREDNISolone 125 MG (Solu-MEDROL) VIAL IVP SCH ×2 (00:07→08:03)
[2022-04-15 02:21] VITALS: BP 148/82
[2022-04-15] MEDS: RT-ALBUTEROL/IPRATROPIUM 3 ML (DUONEB) VIAL INH SCH ×2 (02:21→06:30)
[2022-04-15] MEDS: CEFEPIME INJECTION 1,000 MG in NS (IVPB) 50 ML IV SCH ×2 (04:54→10:18)
[2022-04-15 05:48] LABS: POTASSIUM 4.1 MMOL/L (3.6-5.0)
[2022-04-15 05:49] LABS: CALCIUM 7.9 MG/DL (8.5-10.1)
[2022-04-15 05:53] LABS: CREATININE SERUM 0.68 MG/DL (0.60-1.30)
[2022-04-15 05:55] LABS: MAGNESIUM 2.4 MG/DL (1.6-2.4)
[2022-04-15] MEDS: MAGNESIUM 1 GM/100 ML IVPB 100 ML IV SCH (06:00)
[2022-04-15] MEDS: KCL 20 MEQ TAB (K-DUR) PO SCH (06:00)
[2022-04-15] MEDS: POTASSIUM CL 10MEQ/50ML IVPB 50 ML IV SCH (06:00)
[2022-04-15 06:27] LABS: BASOPHILS % (AUTO) 0 % (0-10); EOSINOPHILS % (AUTO) 0 % (0-10); HEMATOCRIT 31 % (35-52); HEMOGLOBIN 10.1 g/dL (11.5-16.0); LYMPHOCYTES # (AUTO) 0.8 10^3/uL (1.0-4.0); LYMPHOCYTES % (AUTO) 9 % (12-44); MEAN CORPUSCULAR HEMOGLOBIN 29 pg (25-34); MEAN CORPUSCULAR HGB CONC 33 g/dL (32-36); MEAN CORPUSCULAR VOLUME 90 fL (80-99); MONOCYTES # (AUTO) 0.4 10^3/uL (0.0-1.0); MONOCYTES % (AUTO) 4 % (0-12); NEUTROPHILS # (AUTO) 7.4 10^3/uL (1.8-7.8); NEUTROPHILS % (AUTO) 84 % (42-75); PLATELET COUNT 227 10^3/uL (130-400); WHITE BLOOD COUNT 8.8 10^3/uL (4.3-11.0)
[2022-04-15] MEDS: RT--FLUTICASONE/SALMETEROL 232-14 (AIRDUO RespiCLICK) IH SCH (06:35)
[2022-04-15] MEDS: PANTOPRAZOLE 40 MG (PROTONIX) VIAL IV SCH (08:02)
[2022-04-15] MEDS: DOCUSATE SODIUM 100 MG (COLACE) CAP PO SCH (08:02)
[2022-04-15] MEDS: DULoxetine 30 MG (CYMBALTA) CAP PO SCH (08:02)
[2022-04-15] MEDS: busPIRone 10 MG (BUSPAR) TAB PO SCH (08:03)
[2022-04-15] MEDS: AZITHROMYCIN INJECTION 500 MG in NS (IVPB) 250 ML IV SCH (08:03)
[2022-04-15] MEDS: SENNOSIDES 8.6 MG (SENOKOT) TAB PO SCH (08:03)
[2022-04-15] MEDS: OSELTAMIVIR 75 MG (TAMIFLU) CAPSULE PO SCH (08:08)
[2022-04-15] MEDS: ALPRAZolam 0.5 MG (XANAX) TAB PO SCH (08:08)
[2022-04-15] MEDS: NS IV 500 ML 500 ML IV SCH (08:10)
[2022-04-15] MEDS ORDERED: RT-ALBUTEROL/IPRATROPIUM 3 ML (DUONEB) VIAL INH PRN (09:45)
--- NOTE | 2022-04-15 10:07 | Progress Note - Hospitalist ---
Subjective HPI/CC On Admission Date Seen by Provider: Apr 15, 2022 Time Seen by Provider: 09:10 Duyen Major is a 61 year old female with PMH COPD, tobacco abuse, anxiety, who presented with shortness of breath. She is wearing BiPAP during my exam. She has been feeling ill for several days. She reports fevers. She reports nausea. She denies chest pain. She denies abdominal pain. She was found to have influenza A in the ER. Subjective/Events-last exam She is feeling ok. She is off oxygen. She is eating breakfast. She denies shortness of breath. She denies palpitations and chest pain. Focused Exam Lactate Level 04/12/22 14:02: Lactic Acid Level 4.22*H 04/12/22 17:30: Lactic Acid Level 1.43 Objective Exam Vital Signs Vital Signs Date Time Temp Pulse Resp B/P (MAP) Pulse Ox O2 Delivery O2 Flow Rate FiO2 04/15/22 09:00 117 23 155/100 (118) 95 Room Air 04/15/22 07:43 36.4 04/15/22 06:00 2.00 04/15/22 04:00 21 Capillary Refill : Less Than 3 Seconds General Appearance: No Apparent Distress, Chronically ill Respiratory: No Respiratory Distress, Decreased Breath Sounds Cardiovascular: No Murmur, Tachycardia Gastrointestinal: Normal Bowel Sounds, Soft Extremity: Normal Inspection, No Pedal Edema Neurologic/Psychiatric: Alert, Motor Weakness Skin: Normal Color, Warm/Dry Results/Procedures Lab Laboratory Tests 04/15/22 05:10 04/15/22 06:07 Patient resulted labs reviewed. Imaging: Reviewed Imaging Report Assessment/Plan Assessment and Plan Assess & Plan/Chief Complaint Acute on chronic respiratory failure with hypoxia and hypercapnia Acute COPD exacerbation with LRTI Bronchiectasis Influenza A BiPAP at night Supplemental oxygen as needed, baseline reportedly 3 L, currently on room air Tamiflu Cefepime and Azithromycin Prednisone MAT protocol TeleICU following Continue home inhalers Sinus tachycardia HTN EKG with sinus tach Stop scheduled Duonebs Small fluid bolus Metoprolol Anxiety Off Precedex Continue Xanax Continue home meds Debility PT/OT IRU evaluation Pulmonary nodule [address] Follow up in 3 months Tobacco abuse Nicotine patch DVT prophylaxis: Lovenox Diagnosis/Problems Diagnosis/Problems (1) Acute on chronic respiratory failure with hypoxia and hypercapnia Status: Acute (2) COPD exacerbation Status: Acute (3) Influenza A Status: Acute (4) Bronchiectasis Status: Acute (5) Pulmonary nodule less than 1 cm in diameter with moderate to high risk for m alignant neoplasm Status: Acute RATNA HERRERA MD Apr 15, 2022 10:07
--- NOTE | 2022-04-15 10:21 | Tele-ICU Progress Note ---
Subjective Date Seen by a Provider: Apr 15, 2022 Time Seen by a Provider: 10:20 Subjective/Events-last exam (Tele-ICU Physician , Progress Note ) Service provided via interactive audio and video telecommunications E-CARE system to a patient admitted to ICU bed in [facility]. Available chart/ vitals / labs / Images reviewed Video assessment done using teleICU camera, rest of exam as per RN Discussed with RN Events overnight : Afebrile hemodynamically stable Respiratory - ra I/O = Drips: ns STOPPED - resumed NS 30 Pressors- no Consultants: Hospital course: (04/12) 61F admitted for influenza A/severe COPD--normally on 3L NC , on . bipap precedex 04/13- BIPAP 14/6 30 % [id number] tv 550s MV 12L --> off precedex , off bipap 04/15- ra Patient is seen today due to persistent resp failure A/P Acute resp failure ( hypoxic , hypercapneic) with AECOPD and viral infection ( CTA - no PE ) - OFF BIPAP day time , cont . NC 2 L Anxiety on NIPPV - OFFprecedex - careful with benzo - need better regiment Influenza A - ? duration of symptoms - add tamilu , await bedside MD bentley AECOPD - nebs - - IV steroids - TO DECREASE TODAY to q8h 40 Chronic hypoxic resp failure withCOPD/empysema - on 5 l baseline ? LRTI/ bronchitis - CTA chest 04/12 - no PNA - bronchiectasis by CT - cont ABX Hyponatremia - mild , resolving Anemia - no bleeding , probably delutional - follow PT, IS , OOB Lines : periph , (Central Line Necessity Reviewed) Diane: + OG: Nutrition: po Analgesia: Anxiety/ delirium VTE Prophylaxis: vito 40 Stress Ulcer Prophylaxis: ppi Plans in collaboration with bedside consultants and IM MDs. Discussed with RN to reach out if any questions or concerns A total of 20 minutes of critical care time was devoted to this patient today, required to treat and/or prevent further deterioration of critical care condition ( as above ) . I am remotely monitoring this patient from another state. I am unable to do the bedside exam, and history/physical and pertinent information is taken from other notes in the computer and bedside staff. . Sepsis Event Evaluation Height, Weight, BMI Height: '" Weight: lbs. oz. kg; 25.89 BMI Method:Estimated Focused Exam Lactate Level 04/12/22 14:02: Lactic Acid Level 4.22*H 04/12/22 17:30: Lactic Acid Level 1.43 Exam Exam Patient acknowledged, consented, and participated in this virtual visit which was conducted using real time audio/video Vital Signs Date Time Temp Pulse Resp B/P (MAP) Pulse Ox O2 Delivery O2 Flow Rate FiO2 04/15/22 10:00 118 20 137/95 (109) 90 Room Air 04/15/22 09:00 117 23 155/100 (118) 95 Room Air 04/15/22 08:00 110 17 156/83 (107) 93 Room Air 04/15/22 07:43 36.4 04/15/22 07:00 106 04/15/22 07:00 110 21 142/98 (113) 97 Room Air 04/15/22 06:35 91 Room Air 04/15/22 06:00 103 17 166/87 (113) 94 Nasal Cannula 2.00 04/15/22 05:00 105 23 160/88 (112) 96 Nasal Cannula 2.00 04/15/22 04:00 94 NIV Bilevel 21 04/15/22 04:00 99 15 152/78 (102) 93 Nasal Cannula 2.00 04/15/22 03:00 103 16 145/71 (95) 93 Nasal Cannula 2.00 04/15/22 02:24 21.00 04/15/22 02:21 97 20 97 30.00 04/15/22 02:00 97 19 148/82 (104) 98 Nasal Cannula 2.00 04/15/22 01:00 102 04/15/22 01:00 105 19 148/76 (100) 99 Nasal Cannula 2.00 04/15/22 00:00 99 152/76 (101) 98 Nasal Cannula 2.00 04/14/22 23:59 96 NIV Bilevel 30 04/14/22 23:37 103 20 92 30.00 04/14/22 23:21 92 Room Air 04/14/22 23:00 102 127/76 (93) 95 Nasal Cannula 2.00 04/14/22 22:00 101 155/79 (104) 97 Nasal Cannula 2.00 04/14/22 21:00 96 122/75 (91) 96 Nasal Cannula 2.00 04/14/22 20:00 95 Room Air 04/14/22 20:00 36.2 04/14/22 20:00 110 128/68 (88) 95 Nasal Cannula 2.00 04/14/22 19:17 100 Room Air 04/14/22 19:00 100 04/14/22 19:00 105 142/95 (111) 91 Nasal Cannula 2.00 04/14/22 18:00 98 134/75 (94) 90 Nasal Cannula 2.00 04/14/22 17:00 96 144/62 (89) 95 Nasal Cannula 2.00 04/14/22 16:11 96 Room Air 04/14/22 16:00 36.2 04/14/22 16:00 92 126/71 (89) 97 Nasal Cannula 2.00 04/14/22 15:00 90 121/61 (81) 99 Nasal Cannula 2.00 04/14/22 15:00 100 Room Air 04/14/22 14:00 87 121/60 (80) 95 Nasal Cannula 2.00 04/14/22 13:00 89 29 88 Nasal Cannula 2.00 04/14/22 13:00 88 04/14/22 12:00 96 Room Air 04/14/22 12:00 99 47 121/62 (81) 88 Nasal Cannula 2.00 04/14/22 11:42 36.5 04/14/22 11:13 Room Air 04/14/22 11:09 95 High Flow N/C 2.00 04/14/22 11:00 90 30 123/89 (100) 95 Nasal Cannula 2.00 04/14/22 10:45 High Flow N/C 2.00 I & O 04/15/22 07:00 Intake Total 1990 ml Output Total 1725 ml Balance 265 ml Height & Weight Height: '" Weight: lbs. oz. kg; 25.89 BMI Method:Estimated General Appearance: No Apparent Distress, Chronically ill HEENT: PERRL/EOMI, Pharynx Normal Neck: Normal Inspection, Supple Respiratory: No Respiratory Distress, Decreased Breath Sounds Cardiovascular: No Murmur, Tachycardia Capillary Refill: Less Than 3 Seconds Extremity: Normal Inspection, No Pedal Edema Neurologic/Psychiatric: Alert, Motor Weakness Skin: Normal Color, Warm/Dry Results Lab Laboratory Tests 04/14/22 03:57 04/15/22 05:10 04/15/22 06:07 Assessment/Plan Assessment/Plan 1 JC LANDON MD Apr 15, 2022 10:21
--- NOTE | 2022-04-15 10:39 | Physical Therapy Daily Note ---
PT Daily Note-Current Subjective Patient in bed pre tx, agrees to PT, has no complaints of pain Pain Section J - Health Conditions 1. Rarely or not at all 2. Occasionally 3. Frequently 4. Almost constantly 8. Unable to answer Pain Effect on Sleep: 1 Pain Interference with Therapy: 1 Pain Interference w/Day-to-Day: 1 Appearance Patient in recliner post tx with nurse call, phone, tray, all needs met. Mental Status Patient Orientation: Person, Place, Situation Attachments: Diane Catheter, IV Transfers SCALE: Activities may be completed with or without assistive devices. 4-Xgolkuwduk-mtohqur completes the activity by him/herself with no assistance from a helper. 5-Set-up or Clean-up Assistance-helper sets up or cleans up; patient completes activity. Walker assists only prior to or following the activity. 4-Supervision or Touching Assistance-helper provides verbal cues and/or touching/steadying and/or contact guard assistance as patient completes activity. Assistance may be provided throughout the activity or intermittently. 3-Partial/Moderate Assistance-helper does LESS THAN HALF the effort. Walker lifts, holds or supports trunk or limbs, but provides less than half the effort. 2-Substantial/Maximal Assistance-helper does MORE THAN HALF the effort. Walker lifts or holds trunk or limbs and provides more than half the effort. 3-Lanznapjc-keprjo does ALL the effort. Patient does none of the effort to c omplete the activity. Or, the assistance of 2 or more helpers is required for the patient to complete the activity. If activity was not attempted, code reason: 7-Patient Refused. 9-Not Applicable-not attempted and the patient did not perform the activity before the current illness, exacerbation or injury. 10-Not Attempted due to Environmental Limitations-(lack of equipment, weather restraints, etc.). 88-Not Attempted due to Medical Conditions or Safety Concerns. Roll Left & Right (QC): 4 Lying to Sitting/Side of Bed(Q: 4 Sit to Stand (QC): 4 Chair/Acm-ll-Rmnzb Xfer(QC): 4 CGA, cues for safety and positioning Weight Bearing Right Lower Extremity: Right Weight Bearing/Tolerated Left Lower Extremity: Left Weight Bearing/Tolerated Gait Training Distance: 30' Walk 10 feet (QC): 4 Gait Persons Needed: 1 Gait Assistive Device: FWW needs steadying assist during ambulation Exercises Seated Therapy Exercises: Ankle pumps, Long arc quads Seated Reps: 20 Treatments bed mobility and transfers, ambulation, LE ROM Assessment Current Status: Fair Progress improved mobility but still unsteady with ambulation PT Sixth Grade Teacher Goals Care Home Goals PT Sixth Grade Teacher Goals Time Frame: Apr 21, 2022 Roll Left & Right (QC): 6 Sit to Lying (QC): 6 Lying-Sitting on Side/Bed(QC): 6 Sit to Stand (QC): 6 Chair/Sze-lt-Ghktq Xfer(QC): 6 Walk 10 feet (QC): 6 Walk 50ft with 2 Turns (QC): 6 Walk 150 ft (QC): 6 PT Plan Problem List Problem List: Activity Tolerance, Functional Strength, Safety, Balance, Gait, Transfer, Bed Mobility, ROM Treatment/Plan Treatment Plan: Continue Plan of Care Treatment Plan: Bed Mobility, Education, Functional Activity Ancelmo, Functional Strength, Gait, Safety, Therapeutic Exercise, Transfers Treatment Duration: Apr 21, 2022 Frequency: 6 times per week Estimated Hrs Per Day: .25 hour per day Patient and/or Family Agrees t: Yes Safety Risks/Education Patient Education: Gait Training, Transfer Techniques, Correct Positioning, Safety Issues Teaching Recipient: Patient Teaching Methods: Demonstration, Discussion Response to Teaching: Reinforcement Needed Time Time In: 1012 Time Out: 1024 DATE: Apr 15, 2022 Total Billed Treatment Time: 12 Total Billed Treatment 1 visit FA 12LAUREANO VELA PT Apr 15, 2022 10:39
--- NOTE | 2022-04-15 10:54 | Occupational Ther Daily Note ---
OT Current Status-Daily Note Subjective Pt denies pain but does report she is still weak and tired. Pt is anxious throughout session. Appearance Pt left sitting in recliner, all needs within reach at OT departure. Mental Status/Objective Patient Orientation: Person, Place, Situation Attachments: Diane Catheter, IV, Telemetry ADL-Treatment Therapy Code Descriptions/Definitions Functional Loco Measure: 0=Not Assessed/NA 4=Minimal Assistance 1=Total Assistance 5=Supervision or Setup 2=Maximal Assistance 6=Modified Loco 3=Moderate Assistance 7=Complete IndependenceSCALE: Activities may be completed with or without assistive devices. 2-Qxsdqjpobt-rimmhtn completes the activity by him/herself with no assistance from a helper. 5-Set-up or Clean-up Assistance-helper sets up or cleans up; patient completes activity. [place] assists only prior to or following the activity. 4-Supervision or Touching Assistance-helper provides verbal cues and/or touching/steadying and/or contact guard assistance as patient completes activity. Assistance may be provided throughout the activity or intermittently. 3-Partial/Moderate Assistance-helper does LESS THAN HALF the effort. [place] lifts, holds or supports trunk or limbs, but provides less than half the effort. 2-Substantial/Maximal Assistance-helper does MORE THAN HALF the effort. [place] lifts or holds trunk or limbs and provides more than half the effort. 5-Bhzwgyrnk-ddvxml does ALL the effort. Patient does none of the effort to complete the activity. Or, the assistance of 2 or more helpers is required for the patient to complete the activity. If activity was not attempted, code reason: 7-Patient Refused. 9-Not Applicable-not attempted and the patient did not perform the activity before the current illness, exacerbation or injury. 10-Not Attempted due to Environmental Limitations-(lack of equipment, weather restraints, etc.). 88-Not Attempted due to Medical Conditions or Safety Concerns. Oral Hygiene (QC): 7 Pt had just ambulated and sat in chair (with PT) prior to OT arrival. She requests to remain seated. Declines seated adls. Agreeable to UE AROM exercises. She is able to complete all joints through full range but fatigues after ~6-7 reps and needs cues to continue with correct form as pt begins to decrease ra nge. 1x10 all planes. O2 remains >92% during seated exercises. Education OT Patient Education: Correct positioning, Exercise program, Purpose of tx/functional activities, Rehab process Teaching Recipient: Patient Teaching Methods: Demonstration, Discussion Response to Teaching: Verbalize Understanding, Return Demonstration, Reinforcement Needed OT Custodial Goals Custodial Goals Time Frame: Apr 22, 2022 Oral Hygiene (QC): 6 Toileting Hygiene (QC): 5 Shower/Bathe Self (QC): 4 Upper Body Dressing (QC): 6 Lower Body Dressing (QC): 5 On/Off Footwear (QC): 5 Additional Goals: 1-Demonstrate ADL Tasks, 2-Verbalize Understanding, 3- ImproveStrength/Ancelmo 1=Demonstrate adherence to instructed precautions during ADL tasks. 2=Patient will verbalize/demonstrate understanding of assistive devices/modifications for ADL. 3=Patient will improve strength/tolerance for activity to enable patient to perform ADL's. OT Education/Plan Problem List/Assessment Assessment: Decreased Activ Tolerance, Decreased Safety Aware, Decreased UE Strength, Impaired Cognition, Impaired Funct Balance, Impaired I ADL's, Impaired Self-Care Skills Discharge Recommendations Plan/Recommendations: Continue POC Therapy Discharge Recommendati: Post Acute OT Treatment Plan/Plan of Care Treatment,Training & Education: Yes Patient would benefit from OT for education, treatment and training to promote independence in ADL's, mobility, safety and/or upper extremity function for ADL's. Plan of Care: ADL Retraining, Functional Mobility, Group Exercise/Act as Ind, UE Funct Exercise/Act Treatment Duration: Apr 22, 2022 Frequency: 3 times per week (3-5x/week ) Estimated Hrs Per Day: .25 hour per day Rehab Potential: Fair Time Start Time: 10:26 Stop Time: 10:37 DATE: Apr 15, 2022 Total Time Billed (hr/min): 11 Billed Treatment Time 1 visit EX Sonia Massey OT Apr 15, 2022 10:54
[2022-04-15] MEDS ORDERED: methylPREDNISolone 125 MG (Solu-MEDROL) VIAL IVP SCH (16:00)
[2022-04-16] MEDS ORDERED: predniSONE 20 MG TAB PO SCH (07:00)
--- NOTE | 2022-04-17 10:44 | Discharge Summary ---
Discharge Summary Hospital Course Was the Problem List Reviewed?: Yes Problems/Dx: (1) Acute on chronic respiratory failure with hypoxia and hypercapnia Status: Acute (2) COPD exacerbation Status: Acute (3) Influenza A Status: Acute (4) Bronchiectasis Status: Acute Qualifiers: Qualified Codes: J47.0 - Bronchiectasis with acute lower respiratory infection (5) Pulmonary nodule less than 1 cm in diameter with moderate to high risk for malignant neoplasm Status: Acute Hospital Course Date of Admission: Apr 12, 2022 at 15:28 Admission Diagnosis : Acute on chronic respiratory failure with hypoxia and hypercapnia due to COPD exacerbation with bronchiectasis and influenza A Family Physician/Provider: Jodi,Local Physician Date of Discharge: 04/15/22 Discharge Diagnosis: Acute on chronic respiratory failure with hypoxia and hypercapnia due to COPD exacerbation with bronchiectasis and influenza A Hospital Course: Duyen Major is a 61 year old female who presented with shortness of breath and was admitted with acute on chronic respiratory failure with hypoxia and hypercapnia. She was requiring BiPAP. She was treated for COPD exacerbation with steroids and breathing treatments. She also had bronchiectasis and lower respiratory infection and was treated with Cefepime and Azithromycin. She was also positive for influenza A and was given Tamiflu. She also had issues with sinus tachycardia which seemed to be due to albuterol and anxiety. She was started on Xanax. Her imaging on admission also showed an 8 mm pulmonary nodule which will need to be followed up with CT imaging in 3 months. She continues to smoke and cessation was recommended. She improved but remained debilitated. She was discharged to swing bed for continued therapies and antibiotics. Labs and Pending Lab Test: Microbiology 04/14/22 Gram Stain - Final, Complete 04/14/22 Sputum Culture - Final, Complete Usual upper respiratory kahlil 04/12/22 Blood Culture - Preliminary, Resulted No growth Home Meds Active Reported Hydroxyzine HCl 10 Mg Tablet 10-20 Mg PO BID PRN TAKES 1 TO 2 (10MG) TABS Atorvastatin Calcium 40 Mg Tablet 40 Mg PO HS Duloxetine HCl 60 Mg Capsule.dr 60 Mg PO BID Buspirone HCl 10 Mg Tablet 10 Mg PO BID Neurontin (Gabapentin) 300 Mg Capsule 300 Mg PO HS Centrum Silver Women Tablet (Multivits-Min/Iron/FA/Lutein) 8 Mg Iron-400 Mcg-300 Mcg Tablet 1 Each PO DAILY Incruse Ellipta (Umeclidinium Blessing) 62.5 Mcg/Actuation Blst.w.dev 1 Puff IH HS Symbicort 160-4.5 Mcg Inhaler (Budesonide/Formoterol Fumarate) 160 Mcg-4.5 Mcg/Actuation Hfa.aer.ad 2 Puff IH BID Ventolin Hfa (Albuterol Sulfate) 1 Puff Puff 2 Puff IH Q4H PRN Assessment/Pt Instructions Discharged to swing bed Discharge Planning: >30 minutes discharge planning Discharge Instructions Discharge Diet: No Restrictions Activity as Tolerated: Yes Consultations TeleICU Discharge Physical Examination Vital Signs Vital Signs Date Time Temp Pulse Resp B/P (MAP) Pulse Ox O2 Delivery O2 Flow Rate FiO2 04/15/22 15:00 95 20 142/86 (104) 100 Room Air 04/15/22 12:00 36.4 04/15/22 06:00 2.00 04/15/22 04:00 21 General Appearance: No Apparent Distress, Anxious, Chronically ill Respiratory: Lungs Clear, No Respiratory Distress Cardiovascular: No Murmur, Tachycardia Gastrointestinal: Normal Bowel Sounds, Soft Extremity: Normal Inspection, No Pedal Edema Skin: Normal Color, Warm/Dry Neurologic/Psychiatric: Alert, Oriented x3 Allergies: Coded Allergies: No Known Drug Allergies (Unverified , 04/12/22) Discharge Summary Date of Admission Apr 12, 2022 at 15:28 Date of Discharge Apr 15, 2022 at 15:35 Discharge Date: Apr 15, 2022 Discharge Time: 15:35 Admission Diagnosis Acute on chronic respiratory failure with hypoxia and hypercapnia Consults/Procedures Consulations TeleICU Discharge Diagnosis Acute on chronic respiratory failure with hypoxia and hypercapnia Acute COPD exacerbation with LRTI Bronchiectasis Influenza A Sinus tachycardia HTN Anxiety Debility Pulmonary nodule Tobacco abuse (1) Acute on chronic respiratory failure with hypoxia and hypercapnia Status: Acute (2) COPD exacerbation Status: Acute (3) Influenza A Status: Acute (4) Bronchiectasis Status: Acute Qualifiers: Qualified Codes: J47.0 - Bronchiectasis with acute lower respiratory infection (5) Pulmonary nodule less than 1 cm in diameter with moderate to high risk for malignant neoplasm Status: Acute RATNA HERRERA MD Apr 17, 2022 10:36
== END 2022-04-15 15:35 | disposition swing bed (61) | DRG 193 ==
LOC: EDUNIT# 13:49 → ER 13:51 → ICU 15:28
PROVIDERS: ADMIT Internal Medicine; ATTEND Internal Medicine
PROC: 5A09457 Assistance with Respiratory Ventilation, 24-96 Consecutive Hours, Continuous Positive Airway Pressure (ICD-10-PCS; principal; 2022-04-12)
DX: J10.1 Influenza due to other identified influenza virus with other respiratory manifestations (principal); J96.21 Acute and chronic respiratory failure with hypoxia; J96.22 Acute and chronic respiratory failure with hypercapnia; J44.1 Chronic obstructive pulmonary disease with (acute) exacerbation; E87.1 Hypo-osmolality and hyponatremia; F41.9 Anxiety disorder, unspecified; R00.0 Tachycardia, unspecified; I10 Essential (primary) hypertension; R53.81 Other malaise; R91.1 Solitary pulmonary nodule; F17.210 Nicotine dependence, cigarettes, uncomplicated; D64.9 Anemia, unspecified; I25.10 Atherosclerotic heart disease of native coronary artery without angina pectoris; G89.29 Other chronic pain; M54.9 Dorsalgia, unspecified; Z20.822 Contact with and (suspected) exposure to COVID-19
CPT/HCPCS: 36410; 36415; 36600; 71045; 71275; 76937; 80048; 80053; 82805; 82947; 83605; 83735; 84145; 85007; 85025; 85027; 85610; 85730; 87040; 87070; 87081; 87205; 87636; 94640; 94660; 94664

== ENCOUNTER 2022-04-15 13:56 | Inpatient (IN) | payer MEDICARE ==
[~2022-04-15] VITALS: Ht 160 cm; Wt 63.9 kg
[~2022-04-15 13:56] MED LIST changes: +ATOR40TA70 PO; +BUSP10TA95 PO; +DULO60CA59 PO; +HYDR-3584 PO
[2022-04-15] MEDS ORDERED: PATCH REMOVAL TP PRN (15:45)
[2022-04-15] MEDS ORDERED: ONDANSETRON 4 MG (ZOFRAN) ORAL DISSOLVE TAB PO PRN (15:45)
[2022-04-15] MEDS ORDERED: LACTULOSE SYRUP 10GM/15ML (ENULOSE) 30ML UDC PO PRN (15:45)
[2022-04-15] MEDS ORDERED: polyethylene glycoL POWDER 17 GM (MIRALAX) PACK PO PRN (15:45)
[2022-04-15] MEDS ORDERED: diphenhydrAMINE 50 MG/ML INJ (BENADRYL) IVP PRN (15:45)
[2022-04-15] MEDS ORDERED: BISACODYL 10 MG SUPP (DULCOLAX) PR PRN (15:45)
[2022-04-15] MEDS ORDERED: ONDANSETRON 4 MG/2 ML (SDV) Z0FRAN IV PRN (15:45)
[2022-04-15] MEDS ORDERED: ACETAMINOPHEN 325 MG TABLET PO PRN (15:45)
[2022-04-15] MEDS ORDERED: hydrOXYzine (ATARAX) 10 MG TAB PO PRN (15:45)
[2022-04-15] MEDS ORDERED: NICOTINE 14 MG (NICODERM) PATCH TD PRN (15:45)
[2022-04-15] MEDS ORDERED: CALCIUM CARBONATE 500 MG (TUMS) TAB.CHEW PO PRN (15:45)
[2022-04-15] MEDS ORDERED: ANTACID SUSP 30 ML UDC (MYLANTA) PO PRN (15:45)
[2022-04-15] MEDS ORDERED: RT-ALBUTEROL/IPRATROPIUM 3 ML (DUONEB) VIAL INH PRN (15:45)
[2022-04-15] MEDS ORDERED: MILK OF MAGNESIA 400 MG/5 ML 30 ML UDC PO PRN (15:45)
[2022-04-15] MEDS ORDERED: CATHETER FLUSH 10 ML SYR IV PRN (15:45)
[2022-04-15] MEDS ORDERED: diphenhydrAMINE 25 MG TAB (BENADRYL) PO PRN (15:45)
--- NOTE | 2022-04-15 15:55 | Occ Therapy Progress Note ---
Therapy Progress Note OT orders received for SWB evaluation. OT will initiate evaluation/tx Monday04/18/22 CLARA DUPREE OT Apr 15, 2022 15:55
[2022-04-15] MEDS ORDERED: ALPRAZolam 0.5 MG (XANAX) TAB PO PRN (16:30)
[2022-04-15] MEDS ORDERED: ENOXAPARIN 40 MG/0.4 ML (LOVENOX) SYR SC SCH (17:00)
[2022-04-15] MEDS: OSELTAMIVIR 75 MG (TAMIFLU) CAPSULE PO SCH (17:04)
[2022-04-15] MEDS: ENOXAPARIN 40 MG/0.4 ML (LOVENOX) SYR SC SCH (17:04)
[2022-04-15] MEDS: CEFEPIME INJECTION 1,000 MG in NS (IVPB) 50 ML IV SCH ×2 (17:04→22:20)
[2022-04-15 17:42] VITALS: BP 162/74
[2022-04-15] MEDS: RT--FLUTICASONE/SALMETEROL 232-14 (AIRDUO RespiCLICK) IH SCH (19:39)
[2022-04-15] MEDS: UMECLIDINIUM BROMIDE (INCRUSE ELLIPTA) 7'S IH SCH (19:40)
[2022-04-15] MEDS: DULoxetine 30 MG (CYMBALTA) CAP PO SCH (19:52)
[2022-04-15] MEDS: GABAPENTIN 300 MG (NEURONTIN) CAP PO SCH (19:52)
[2022-04-15] MEDS: ALPRAZolam 0.5 MG (XANAX) TAB PO SCH (19:52)
[2022-04-15] MEDS: busPIRone 10 MG (BUSPAR) TAB PO SCH (19:52)
[2022-04-15] MEDS: DOCUSATE SODIUM 100 MG (COLACE) CAP PO SCH (19:56)
[2022-04-15] MEDS: SENNOSIDES 8.6 MG (SENOKOT) TAB PO SCH (19:57)
[2022-04-15 23:04] VITALS: BP 142/69
[2022-04-16] MEDS: CEFEPIME INJECTION 1,000 MG in NS (IVPB) 50 ML IV SCH ×4 (04:10→22:28)
[2022-04-16] MEDS: OSELTAMIVIR 75 MG (TAMIFLU) CAPSULE PO SCH ×2 (06:12→17:24)
[2022-04-16] MEDS: predniSONE 20 MG TAB PO SCH (06:12)
[2022-04-16 07:37] VITALS: BP 133/63
[2022-04-16] MEDS: busPIRone 10 MG (BUSPAR) TAB PO SCH ×2 (07:59→19:53)
[2022-04-16] MEDS: SENNOSIDES 8.6 MG (SENOKOT) TAB PO SCH ×2 (07:59→21:14)
[2022-04-16] MEDS: DOCUSATE SODIUM 100 MG (COLACE) CAP PO SCH ×2 (07:59→21:14)
[2022-04-16] MEDS: ALPRAZolam 0.5 MG (XANAX) TAB PO SCH ×2 (07:59→19:53)
[2022-04-16] MEDS: DULoxetine 30 MG (CYMBALTA) CAP PO SCH ×2 (07:59→19:53)
[2022-04-16] MEDS: PANTOPRAZOLE 40 MG (PROTONIX) VIAL IV SCH (08:00)
[2022-04-16] MEDS: AZITHROMYCIN INJECTION 500 MG in NS (IVPB) 250 ML IV SCH (08:00)
--- NOTE | 2022-04-16 11:04 | Physical Therapy Evaluation ---
PT Evaluation-General Medical Diagnosis Admission Date Apr 15, 2022 at 15:50 Medical Diagnosis: respiratory failure, influenza A, COPD exacerbation Onset Date: Apr 16, 2022 Therapy Diagnosis Therapy Diagnosis: decreased mobility Precautions Precautions/Isolations: Droplet Isolation Weight Bear Status Right Lower Extremity: Right Weight Bearing/Tolerated Left Lower Extremity: Left Weight Bearing/Tolerated Referral Physician: Jyoti Reason for Referral: Evaluation/Treatment Medical History Pertinent Medical History: CAD, COPD, Smoking Current History Transfer from ICU to swing bed due to influenza A, respiratory failure Social History Home: Apartment Current Living Status: Children Entry Into Home: Stairs With Railing PT Steps Into Home: 27 Prior Prior Level of Function SCALE: Activities may be completed with or without assistive devices. 5-Xgwgzponal-qooecpz completes the activity by him/herself with no assistance from a helper. 5-Set-up or Clean-up Assistance-helper sets up or cleans up; patient completes activity. [place] assists only prior to or following the activity. 4-Supervision or Touching Assistance-helper provides verbal cues and/or touching/steadying and/or contact guard assistance as patient completes activity. Assistance may be provided throughout the activity or intermittently. 3-Partial/Moderate Assistance-helper does LESS THAN HALF the effort. [place] lifts, holds or supports trunk or limbs, but provides less than half the effort. 2-Substantial/Maximal Assistance-helper does MORE THAN HALF the effort. [place] lifts or holds trunk or limbs and provides more than half the effort. 4-Bmocwovei-sylcvg does ALL the effort. Patient does none of the effort to co mplete the activity. Or, the assistance of 2 or more helpers is required for the patient to complete the activity. If activity was not attempted, code reason: 7-Patient Refused. 9-Not Applicable-not attempted and the patient did not perform the activity before the current illness, exacerbation or injury. 10-Not Attempted due to Environmental Limitations-(lack of equipment, weather restraints, etc.). 88-Not Attempted due to Medical Conditions or Safety Concerns. Bed Mobility: 6 Transfers (B,C,W/C): 6 Gait: 6 Stairs: 6 Indoor Mobility (Ambulation): Independent Stairs: Independent PT Evaluation-Current Subjective Pt. asleep in bed but easily awakens. She agrees to PT. Pt. denies pain. Pain Section J - Health Conditions 1. Rarely or not at all 2. Occasionally 3. Frequently 4. Almost constantly 8. Unable to answer Pain Effect on Sleep: 1 Pain Interference with Therapy: 1 Pain Interference w/Day-to-Day: 1 Pt/Family Goals home with family Objective Patient Orientation: Person, Place, Time, Situation Attachments: Oxygen, IV ROM/Strength ROM Upper Extremities WFL ROM Lower Extremities WFL Strength Upper Extremities See OT Strength Lower Extremities Grossly 4/5 (B) hip, knee, ankle Integumentary/Posture Integumentary grossly intact Bowel Incontinence: No Bladder Incontinence: No Neuromuscular (Tone, Coordination, Reflexes) unremarkable Sensory Vision: Wears Glasses Hearing: Functional Sensation Right Upper Extremit: Intact Sensation Left Upper Extremity: Intact Sensation Right Lower Extremit: Intact Sensation Left Lower Extremity: Intact Transfers Roll Left & Right (QC): 6 Sit to Lying (QC): 88 Lying to Sitting/Side of Bed(Q: 6 Sit to Stand (QC): 4 Chair/Ola-gu-Wkfuf Xfer(QC): 4 Toilet Transfer (QC): 88 Car Transfer (QC): 88 Gait Does the Patient Walk?: Yes Mode of Locomotion: Walk Anticipated Mode of Locomotion: Walk Walk 10 feet (QC): 4 Walk 50 ft with 2 Turns(QC): 88 Walk 150 ft (QC): 88 Walking 10ft/uneven surface-QC: 88 Distance: 15 ft Gait Assistive Device: FWW Wheelchair Training Does the Pt Use a Wheelchair?: No Wheel 50 ft with 2 turns (QC): 9 Wheel 150 ft (QC): 9 Stairs 1 Step (curb) (QC): 88 4 Steps (QC): 88 12 Steps (QC): 88 Balance Sitting Static: Good Sitting Dynamic: Good Standing Static: Fair Standing Dynamic: Fair Picking up an Object (QC): 88 Treatment set up with breakfast, LE exercises in bedside chair x 15 reps Assessment/Needs Rehab Potential: Good PT Mcc Goals Senior Animal Trainer Goals PT Senior Animal Trainer Goals Time Frame: Apr 27, 2022 Roll Left to Right (QC): 6 Sit to Lying (QC): 6 Lying-Sitting on Side/Bed(QC): 6 Sit to Stand (QC): 6 Chair/Bib-hv-Kawe[place] Xfer(QC): 6 Toilet/Commode Transfer (QC): 6 Car Transfer (QC): 6 Does the Patient Walk: Yes Walk 10 feet (QC): 6 Walk 10ft-Uneven Surface(QC): 6 Walk 50ft with 2 Turns (QC): 6 Walk 150 ft (QC): 6 Does the Pt use WC or Scooter?: No Wheel 50 feet with 2 turns (QC: 9 Wheel 150 feet: 9 1 Step (curb) (QC): 6 4 Steps (QC): 6 12 Steps (QC): 6 Picking up an Object (QC): 6 PT Plan Problem List Problem List: Activity Tolerance, Functional Strength, Safety, Balance, Gait, Transfer, Bed Mobility, ROM Treatment/Plan Treatment Plan: Continue Plan of Care Treatment Plan: Bed Mobility, Concurrent Therapy, Education, Functional Activity Ancelmo, Functional Strength, Gait, Safety, Therapeutic Exercise, Transfers Treatment Duration: Apr 27, 2022 Frequency: 6 times per week Estimated Hrs Per Day: .25 hour per day Patient and/or Family Agrees t: Yes Time Time In: 0840 Time Out: 0904 DATE: Apr 16, 2022 Total Billed Treatment Time: 24 Total Billed Treatment 1, ALYSHA 9', FA 15' JESSI KAMINSKI PT Apr 16, 2022 11:04
[2022-04-16] MEDS: RT--FLUTICASONE/SALMETEROL 232-14 (AIRDUO RespiCLICK) IH SCH ×2 (16:20→19:50)
[2022-04-16] MEDS: ENOXAPARIN 40 MG/0.4 ML (LOVENOX) SYR SC SCH (16:36)
[2022-04-16 19:44] VITALS: BP 149/70
[2022-04-16] MEDS: UMECLIDINIUM BROMIDE (INCRUSE ELLIPTA) 7'S IH SCH (19:50)
[2022-04-16] MEDS: GABAPENTIN 300 MG (NEURONTIN) CAP PO SCH (19:53)
[2022-04-17] MEDS: CEFEPIME INJECTION 1,000 MG in NS (IVPB) 50 ML IV SCH ×4 (04:27→22:39)
[2022-04-17] MEDS: OSELTAMIVIR 75 MG (TAMIFLU) CAPSULE PO SCH (06:10)
[2022-04-17] MEDS: predniSONE 20 MG TAB PO SCH (06:10)
[2022-04-17 07:22] VITALS: BP 158/71
[2022-04-17] MEDS: RT--FLUTICASONE/SALMETEROL 232-14 (AIRDUO RespiCLICK) IH SCH ×2 (09:16→21:52)
[2022-04-17] MEDS: PANTOPRAZOLE 40 MG (PROTONIX) VIAL IV SCH (09:30)
[2022-04-17] MEDS: AZITHROMYCIN INJECTION 500 MG in NS (IVPB) 250 ML IV SCH (09:30)
[2022-04-17] MEDS: busPIRone 10 MG (BUSPAR) TAB PO SCH ×2 (09:34→20:03)
[2022-04-17] MEDS: DULoxetine 30 MG (CYMBALTA) CAP PO SCH ×2 (09:34→20:03)
[2022-04-17] MEDS: ALPRAZolam 0.5 MG (XANAX) TAB PO SCH ×2 (09:34→20:03)
[2022-04-17] MEDS: DOCUSATE SODIUM 100 MG (COLACE) CAP PO SCH ×2 (09:37→20:03)
[2022-04-17] MEDS: SENNOSIDES 8.6 MG (SENOKOT) TAB PO SCH ×2 (09:37→20:03)
[2022-04-17 12:06] VITALS: BP 133/61
[2022-04-17] MEDS: ENOXAPARIN 40 MG/0.4 ML (LOVENOX) SYR SC SCH (16:23)
[2022-04-17 19:38] VITALS: BP 135/97
[2022-04-17] MEDS: GABAPENTIN 300 MG (NEURONTIN) CAP PO SCH (20:03)
[2022-04-17] MEDS: MELATONIN 3 MG TABLET PO PRN (20:03)
[2022-04-17] MEDS: UMECLIDINIUM BROMIDE (INCRUSE ELLIPTA) 7'S IH SCH (21:52)
[2022-04-18] MEDS: CEFEPIME INJECTION 1,000 MG in NS (IVPB) 50 ML IV SCH ×4 (04:11→22:37)
[2022-04-18 07:15] VITALS: BP 137/73
[2022-04-18] MEDS: PANTOPRAZOLE 40 MG (PROTONIX) VIAL IV SCH (08:08)
[2022-04-18] MEDS: SENNOSIDES 8.6 MG (SENOKOT) TAB PO SCH ×2 (08:08→19:28)
[2022-04-18] MEDS: busPIRone 10 MG (BUSPAR) TAB PO SCH ×2 (08:08→19:28)
[2022-04-18] MEDS: DULoxetine 30 MG (CYMBALTA) CAP PO SCH ×2 (08:08→19:28)
[2022-04-18] MEDS: predniSONE 20 MG TAB PO SCH (08:09)
[2022-04-18] MEDS: DOCUSATE SODIUM 100 MG (COLACE) CAP PO SCH ×2 (08:09→19:28)
[2022-04-18] MEDS: ALPRAZolam 0.5 MG (XANAX) TAB PO SCH ×2 (08:09→19:28)
--- NOTE | 2022-04-18 08:31 | Progress Note - Hospitalist ---
Subjective HPI/CC On Admission Date Seen by Provider: Apr 18, 2022 Subjective/Events-last exam Pt reports feeling better. Breathing well and strength improving. Was able to celebrate [place] with her family last night. No new complaints. Objective Exam Vital Signs Vital Signs Date Time Temp Pulse Resp B/P (MAP) Pulse Ox O2 Delivery O2 Flow Rate FiO2 04/18/22 07:15 37.2 80 18 137/73 (94) 94 Nasal Cannula 3.00 Capillary Refill : General Appearance: No Apparent Distress Respiratory: Lungs Clear, No Respiratory Distress Cardiovascular: Regular Rate, Rhythm, No Murmur Neurologic/Psychiatric: Alert, Oriented x3 Results/Procedures Lab Patient resulted labs reviewed. Assessment/Plan Assessment and Plan Assess & Plan/Chief Complaint Acute on chronic respiratory failure with hypoxia and hypercapnia Acute COPD exacerbation with LRTI Bronchiectasis Influenza A BiPAP at night Supplemental oxygen as needed,at baseline reportedly 3 L Tamiflu Cefepime and completed Azithromycin Prednisone MAT protocol TeleICU following Continue home inhalers Sinus tachycardia HTN sinus tach resolved Metoprolol Anxiety Continue Xanax Continue home meds Debility PT/OT Pulmonary nodule [address] Follow up in 3 months Tobacco abuse Nicotine patch DVT prophylaxis: Lovenox SJ SAUCEDA MD Apr 18, 2022 08:31
[2022-04-18] MEDS: RT--FLUTICASONE/SALMETEROL 232-14 (AIRDUO RespiCLICK) IH SCH ×2 (08:33→19:59)
--- NOTE | 2022-04-18 10:17 | Physical Therapy Daily Note ---
PT Daily Note-Current Subjective Patient agrees to PT. Pain Section J - Health Conditions 1. Rarely or not at all 2. Occasionally 3. Frequently 4. Almost constantly 8. Unable to answer Pain Effect on Sleep: 1 Pain Interference with Therapy: 1 Pain Interference w/Day-to-Day: 1 Mental Status Patient Orientation: Normal For Age Attachments: Oxygen Transfers SCALE: Activities may be completed with or without assistive devices. 0-Bbzgjjftew-ltemnqx completes the activity by him/herself with no assistance from a helper. 5-Set-up or Clean-up Assistance-helper sets up or cleans up; patient completes activity. [place] assists only prior to or following the activity. 4-Supervision or Touching Assistance-helper provides verbal cues and/or touching/steadying and/or contact guard assistance as patient completes activity. Assistance may be provided throughout the activity or intermittently. 3-Partial/Moderate Assistance-helper does LESS THAN HALF the effort. [place] lifts, holds or supports trunk or limbs, but provides less than half the effort. 2-Substantial/Maximal Assistance-helper does MORE THAN HALF the effort. [place] lifts or holds trunk or limbs and provides more than half the effort. 4-Ovfunewsp-pedfow does ALL the effort. Patient does none of the effort to complete the activity. Or, the assistance of 2 or more helpers is required for the patient to complete the activity. If activity was not attempted, code reason: 7-Patient Refused. 9-Not Applicable-not attempted and the patient did not perform the activity before the current illness, exacerbation or injury. 10-Not Attempted due to Environmental Limitations-(lack of equipment, weather restraints, etc.). 88-Not Attempted due to Medical Conditions or Safety Concerns. Roll Left & Right (QC): 6 Sit to Lying (QC): 6 Lying to Sitting/Side of Bed(Q: 6 Sit to Stand (QC): 6 Chair/Hak-al-Mpjuw Xfer(QC): 6 Toilet Transfer (QC): 6 Car Transfer (QC): 6 Weight Bearing Right Lower Extremity: Right Weight Bearing/Tolerated Left Lower Extremity: Left Weight Bearing/Tolerated Gait Training Distance: 200' x 2 Walk 10 feet (QC): 6 Walk 50 ft with 2 Turns(QC): 6 Walk 150 ft (QC): 6 Walking 10ft/uneven surface-QC: 6 Gait Assistive Device: None slow, steady, functional gait sequence Stair Training Stair Training: Handrails/: 2 handrails #of Steps: 28 1 Step (curb) (QC): 6 4 Steps (QC): 6 12 Steps (QC): 6 Stairs: Pattern: Reciprocal Balance Picking up an Object (QC): 6 Assessment Patient does fatigue with activity and has c/o SOA. SAO2 remains > 90% on 3L O2 continuous. Patient in recliner with needs met. PT to see patient x 1 more session due to current independent LOF. PT Snf Goals Broke Worker Goals PT Snf Goals Time Frame: Apr 27, 2022 Roll Left & Right (QC): 6 Sit to Lying (QC): 6 Lying-Sitting on Side/Bed(QC): 6 Sit to Stand (QC): 6 Chair/Ttp-av-Igrnh Xfer(QC): 6 Toilet Transfer (QC): 6 Car Transfer (QC): 6 Does the Patient Walk: Yes Walk 10 feet (QC): 6 Walk 50ft with 2 Turns (QC): 6 Walk 150 ft (QC): 6 Walking 10ft on Uneven Surface: 6 1 Step (curb) (QC): 6 4 Steps (QC): 6 12 Steps (QC): 6 Picking up an Object (QC): 6 Does the Pt use WC or Scooter?: No Wheel 50 feet with 2 turns (QC: 9 Wheel 150 feet: 9 PT Plan Treatment/Plan Treatment Plan: Continue Plan of Care Treatment Plan: Bed Mobility, Concurrent Therapy, Education, Functional Activity Ancelmo, Functional Strength, Gait, Safety, Therapeutic Exercise, Transfers Treatment Duration: Apr 27, 2022 Frequency: 6 times per week Estimated Hrs Per Day: .25 hour per day Patient and/or Family Agrees t: Yes Time Time In: 852 Time Out: 915 DATE: Apr 18, 2022 Total Billed Treatment Time: 23 Total Billed Treatment 1 visit FA x 2 23 min JASON BROWN PT Apr 18, 2022 10:17
--- NOTE | 2022-04-18 11:24 | Occupational Therapy Eval ---
OT Evaluation-General/PLF Medical Diagnosis Admission Date Apr 15, 2022 at 15:50 Medical Diagnosis: respiratory failure, COPD exacerbation Onset Date: Apr 16, 2022 Therapy Diagnosis Therapy Diagnosis: Weakness, Decreased strength Precautions Precautions/Isolations: Standard Precautions Weight Bear Status Weight Bearing Restriction: Weight Bearing/Tolerated Referral Physician: Jyoti Referral Reason: Activity Tolerance, Self Care, Evaluation/Treatment, Strengthening/ROM Medical History Pertinent Medical History: CAD, COPD, Smoking Current History Pt. currently uses 2L 02 at home. Became very SOA. Family brought her to ER. Pt. was on flu A precautions at first, but per nursing, no longer is in isolation. Reviewed History: Yes Social History Home: Apartment Current Living Status: Children Entry Into Home: Stairs With Railing Steps Into Home: 27 ADL-Prior Level of Function SCALE: Activities may be completed with or without assistive devices. 0-Mpaxalefks-zgzeiec completes the activity by him/herself with no assistance from a helper. 5-Set-up or Clean-up Assistance-helper sets up or cleans up; patient completes activity. [place] assists only prior to or following the activity. 4-Supervision or Touching Assistance-helper provides verbal cues and/or touching/steadying and/or contact guard assistance as patient completes activity. Assistance may be provided throughout the activity or intermittently. 3-Partial/Moderate Assistance-helper does LESS THAN HALF the effort. [place] lifts, holds or supports trunk or limbs, but provides less than half the effort. 2-Substantial/Maximal Assistance-helper does MORE THAN HALF the effort. [place] lifts or holds trunk or limbs and provides more than half the effort. 3-Enpfxfdxy-uimmrf does ALL the effort. Patient does none of the effort to complete the activity. Or, the assistance of 2 or more helpers is required for the patient to complete the activity. If activity was not attempted, code reason: 7-Patient Refused. 9-Not Applicable-not attempted and the patient did not perform the activity before the current illness, exacerbation or injury. 10-Not Attempted due to Environmental Limitations-(lack of equipment, weather restraints, etc.). 88-Not Attempted due to Medical Conditions or Safety Concerns. ADL PLOF Comments Pt. reports that she used oxygen, but does not use an assistive device. She reports that she was fully independent with daily tasks. Self Care: Independent Functional Cognition: Independent DME/Equipment: Bath Chair, Shower OT Current Status Subjective Pt. does not report pain, just fatigue. States that she would like to get out of here, but knows she needs to be here. Appearance Pt. in bed. Alert and oriented. Mental Status/Objective Patient Orientation: Person, Place, Time, Situation Attachments: IV, Oxygen Current Upper Extremity ROM WFL ADL-Treatment Eating (QC): 6 Oral Hygiene (QC): 9 (Pt. wears dentures but not wearing them at this time.) Shower/Bathe Self (QC): 5 (OT offered to assist pt. with showering/bathing. Pt. declines at this time stating that she showered last night with set up assist only.) Upper Body Dressing (QC): 10 (No clothing available. Pt. reports that she hopes her family will bring clothes.) Lower Body Dressing (QC): 10 On/Off Footwear (QC): 6 (Pt. independently doffed/donned slipper socks seated at EOB.) Toileting Hygiene (QC): 7 (Pt. does not have to go at this time.) Other Treatments Pt. transfers to EOB with independence. She is able to stand at EOB safely without assistive device. Per PT she is ambulating to bathroom on her own. Pt. verbalizes that she just feels weak and tired. Education OT Patient Education: Correct positioning, Modified ADL techniques, Progress toward Goal/Update tx plan, Purpose of tx/functional activities, Reviewed precautions, Rehab process, Transfer techniques Teaching Recipient: Patient Teaching Methods: Demonstration, Discussion Response to Teaching: Verbalize Understanding, Return Demonstration BIMS CAM BIMS Expression of Ideas and Wants: Without Difficulty Understanding Verbal Content: Understands Brief Interview/Mental Status: Yes IRF KONSTANTIN BIMS: IRF KONSTANTIN BIMS Response (Comments) Value Repitition of Three Words Three 3 Recalls Socks Yes, No Cue Required 2 Recalls Blue Yes, No Cue Required 2 Recalls Bed Yes, No Cue Required 2 Year Correct 3 Month Accurate Within 5 Days 2 Day Correct 1 Total 15 Patient Normally Able to Recal: Current Session, Staff Names and faces, That he/she in a hsp Should Staff Asses. Mental St.: No Memory/Recall Ability: Current Season, Location of Own Room, Staff Names and Faces, That He/She in Hospitall CAM Mental Status Change/Baseline: 0 Inattention: 0 Disorganized thinkin Altered level of consciousness: 0 OT Transformer Assembly Supervisor Goals Transformer Assembly Supervisor Goals Time Frame: May 02, 2022 Acute change in mental status: 0 Inattention: 0 Disorganized thinkin Altered level of consciousness: 0 Eating (QC): 6 Oral Hygiene (QC): 6 Toileting Hygiene (QC): 6 Shower/Bathe Self (QC): 6 Upper Body Dressing (QC): 6 Lower Body Dressing (QC): 6 On/Off Footwear (QC): 6 Additional Goals: 1-Demonstrate ADL Tasks, 2-Verbalize Understanding, 3- ImproveStrength/Ancelmo 1=Demonstrate adherence to instructed precautions during ADL tasks. 2=Patient will verbalize/demonstrate understanding of assistive devices/modifications for ADL. 3=Patient will improve strength/tolerance for activity to enable patient to perform ADL's. OT Education/Plan Problem List/Assessment Assessment: Decreased Activ Tolerance, Impaired Self-Care Skills Discharge Recommendations Plan/Recommendations: Continue POC Treatment Plan/Plan of Care Treatment,Training & Education: Yes Patient would benefit from OT for education, treatment and training to promote independence in ADL's, mobility, safety and/or upper extremity function for ADL's. Plan of Care: ADL Retraining, Functional Mobility, UE Funct Exercise/Act Treatment Duration: May 02, 2022 Frequency: 5 times per week Estimated Hrs Per Day: .25 hour per day Agreement: Yes Rehab Potential: Good Time Start Time: 10:48 Stop Time: 11:03 DATE: Apr 18, 2022 Total Time Billed (hr/min): 15 Billed Treatment Time 1, CAMILA COELLO OT Apr 18, 2022 11:24
[2022-04-18] MEDS: ENOXAPARIN 40 MG/0.4 ML (LOVENOX) SYR SC SCH (15:53)
[2022-04-18 19:07] VITALS: BP 131/68
[2022-04-18] MEDS: GABAPENTIN 300 MG (NEURONTIN) CAP PO SCH (19:28)
[2022-04-18] MEDS: UMECLIDINIUM BROMIDE (INCRUSE ELLIPTA) 7'S IH SCH (19:59)
[2022-04-18 23:25] VITALS: BP 163/80
[2022-04-19] MEDS: CEFEPIME INJECTION 1,000 MG in NS (IVPB) 50 ML IV SCH ×4 (05:10→22:38)
[2022-04-19] MEDS: predniSONE 20 MG TAB PO SCH (05:45)
[2022-04-19 07:22] VITALS: BP 146/70
[2022-04-19] MEDS: RT--FLUTICASONE/SALMETEROL 232-14 (AIRDUO RespiCLICK) IH SCH ×2 (08:01→19:57)
[2022-04-19] MEDS: ALPRAZolam 0.5 MG (XANAX) TAB PO SCH ×2 (08:40→19:53)
[2022-04-19] MEDS: DULoxetine 30 MG (CYMBALTA) CAP PO SCH ×2 (08:40→19:53)
[2022-04-19] MEDS: PANTOPRAZOLE 40 MG (PROTONIX) VIAL IV SCH (08:40)
[2022-04-19] MEDS: SENNOSIDES 8.6 MG (SENOKOT) TAB PO SCH ×2 (08:40→19:53)
[2022-04-19] MEDS: busPIRone 10 MG (BUSPAR) TAB PO SCH ×2 (08:40→19:53)
[2022-04-19] MEDS: DOCUSATE SODIUM 100 MG (COLACE) CAP PO SCH ×2 (08:40→19:53)
--- NOTE | 2022-04-19 09:39 | Physical Therapy Daily Note ---
PT Daily Note-Current Subjective Patient agrees to PT. Continues to report fatigue, however, is independent with all functional mobility. Pain Section J - Health Conditions 1. Rarely or not at all 2. Occasionally 3. Frequently 4. Almost constantly 8. Unable to answer Pain Effect on Sleep: 1 Pain Interference with Therapy: 1 Pain Interference w/Day-to-Day: 1 Mental Status Patient Orientation: Normal For Age Attachments: Oxygen Transfers SCALE: Activities may be completed with or without assistive devices. 5-Ueaekdgsbx-cxxppdl completes the activity by him/herself with no assistance from a helper. 5-Set-up or Clean-up Assistance-helper sets up or cleans up; patient completes activity. [place] assists only prior to or following the activity. 4-Supervision or Touching Assistance-helper provides verbal cues and/or touching/steadying and/or contact guard assistance as patient completes activity. Assistance may be provided throughout the activity or intermittently. 3-Partial/Moderate Assistance-helper does LESS THAN HALF the effort. [place] lifts, holds or supports trunk or limbs, but provides less than half the effort. 2-Substantial/Maximal Assistance-helper does MORE THAN HALF the effort. [place] lifts or holds trunk or limbs and provides more than half the effort. 6-Mgblxowlc-lkqnhd does ALL the effort. Patient does none of the effort to complete the activity. Or, the assistance of 2 or more helpers is required for the patient to complete the activity. If activity was not attempted, code reason: 7-Patient Refused. 9-Not Applicable-not attempted and the patient did not perform the activity before the current illness, exacerbation or injury. 10-Not Attempted due to Environmental Limitations-(lack of equipment, weather restraints, etc.). 88-Not Attempted due to Medical Conditions or Safety Concerns. Roll Left & Right (QC): 6 Sit to Lying (QC): 6 Lying to Sitting/Side of Bed(Q: 6 Sit to Stand (QC): 6 Weight Bearing Right Lower Extremity: Right Weight Bearing/Tolerated Left Lower Extremity: Left Weight Bearing/Tolerated Gait Training Distance: 500' Walk 10 feet (QC): 6 Walk 50 ft with 2 Turns(QC): 6 Walk 150 ft (QC): 6 Gait Assistive Device: None safe and functional with no deviation Assessment Patient did perform all functional mobility yesterday and is independent with all. Goals addressed and attained. Physician notified of patient attaining all goals and PT to dismiss patient from services at this time. 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[place] [employer] Goals Time Frame: Apr 27, 2022 Roll Left & Right (QC): 6 Sit to Lying (QC): 6 Lying-Sitting on Side/Bed(QC): 6 Sit to Stand (QC): 6 Chair/Fzz-kf-Ruxkk Xfer(QC): 6 Toilet Transfer (QC): 6 Car Transfer (QC): 6 Does the Patient Walk: Yes Walk 10 feet (QC): 6 Walk 50ft with 2 Turns (QC): 6 Walk 150 ft (QC): 6 Walking 10ft on Uneven Surface: 6 1 Step (curb) (QC): 6 4 Steps (QC): 6 12 Steps (QC): 6 Picking up an Object (QC): 6 Does the Pt use WC or Scooter?: No Wheel 50 feet with 2 turns (QC: 9 Wheel 150 feet: 9 PT Plan Treatment/Plan Treatment Plan: Discontinue PT, goals met Treatment Plan: Bed Mobility, Concurrent Therapy, Education, Functional Activity Ancelmo, Functional Strength, Gait, Safety, Therapeutic Exercise, Transfers Treatment Duration: Apr 27, 2022 Frequency: 6 times per week Estimated Hrs Per Day: .25 hour per day Patient and/or Family Agrees t: Yes Time Time In: 915 Time Out: 930 DATE: Apr 19, 2022 Total Billed Treatment Time: 15 Total Billed Treatment 1 visit FA 15 min JASON BROWN PT Apr 19, 2022 09:39
--- NOTE | 2022-04-19 09:40 | Therapy Team Discharge Summary ---
Therapy Discharge Summary Discharge Recommendations Date of Discharge Physical Therapy Patient did perform all functional mobility yesterday and is independent with all. Goals addressed and attained. Physician notified of patient attaining all goals and PT to dismiss patient from services at this time. Roll Left to Right (QC): 6 Sit to Lying (QC): 6 Lying to Sitting/Side of Bed(Q: 6 Sit to Stand (QC): 6 Chair/Puu-dn-Hranb Xfer(QC): 6 Toilet Transfer (QC): 6 Car Transfer (QC): 6 Does the Patient Walk: Yes Mode of Locomotion: Walk Anticipated Mode of Locomotion: Walk Walk 10 feet (QC): 6 Walk 50 ft with 2 Turns(QC): 6 Walk 150 ft (QC): 6 Walking 10ft on uneven surface: 6 Distance: 500' Gait Assistive Device: None Does the Pt Use a Wheelchair: No Wheel 50 ft with 2 turns (QC): 9 Wheel 150 ft (QC): 9 #of Steps: 28 1 Step (curb) (QC): 6 4 Steps (QC): 6 12 Steps (QC): 6 Balance Sitting Static: Good Balance Sitting Dynamic: Good Balance-Standing Static: Good Picking up an Object (QC): 6 Occupational Therapy Decreased Activ Tolerance, Impaired Self-Care Skills Eating (QC): 6 Oral Hygiene (QC): 9 (Pt. wears dentures but not wearing them at this time.) Shower/Bathe Self (QC): 5 (OT offered to assist pt. with showering/bathing. Pt. declines at this time stating that she showered last night with set up assist only.) Upper Body Dressing (QC): 10 (No clothing available. Pt. reports that she h opes her family will bring clothes.) Lower Body Dressing (QC): 10 On/Off Footwear (QC): 6 (Pt. independently doffed/donned slipper socks seated at EOB.) Toileting Hygiene (QC): 7 (Pt. does not have to go at this time.) PT Half-Way Goals Half-Way Goals PT Commercial Engineer Goals Time Frame: Apr 27, 2022 Roll Left to Right (QC): 6 Sit to Lying (QC): 6 Lying-Sitting on Side/Bed(QC): 6 Sit to Stand (QC): 6 Chair/Cbm-bg-Fimcs Xfer(QC): 6 Toilet/Commode Transfer (QC): 6 Car Transfer (QC): 6 Does the Patient Walk: Yes Walk 10 feet (QC): 6 Walk 10ft-Uneven Surface(QC): 6 Walk 50ft with 2 Turns (QC): 6 Walk 150 ft (QC): 6 Does the Pt use WC or Scooter?: No Wheel 50 feet with 2 turns (QC: 9 Wheel 150 feet: 9 1 Step (curb) (QC): 6 4 Steps (QC): 6 12 Steps (QC): 6 Picking up an Object (QC): 6 OT Half-Way Goals Commercial Engineer Goals Time Frame: May 02, 2022 Acute change in mental status: 0 Inattention: 0 Disorganized thinkin Altered level of consciousness: 0 Eating (QC): 6 Oral Hygiene (QC): 6 Toileting Hygiene (QC): 6 Shower/Bathe Self (QC): 6 Upper Body Dressing (QC): 6 Lower Body Dressing (QC): 6 On/Off Footwear (QC): 6 Additional Goals: 1-Demonstrate ADL Tasks, 2-Verbalize Understanding, 3-ImproveStrength/Ancelmo 1=Demonstrate adherence to instructed precautions during ADL tasks. 2=Patient will verbalize/demonstrate understanding of assistive devices/modifications for ADL. 3=Patient will improve strength/tolerance for activity to enable patient to perform ADL's. JASON BROWN PT Apr 19, 2022 09:40
--- NOTE | 2022-04-19 11:08 | Occupational Ther Daily Note ---
OT Current Status-Daily Note Subjective Pt alert, lying in bed. Pt states that she is tired today because she did not sleep last night. Pt reluctantly agrees to therapy. No c/o pain. Mental Status/Objective Patient Orientation: Person, Place, Time, Situation Attachments: IV, Oxygen ADL-Treatment Per nrsg and PT pt is up ad tyra in room. Per pt, she completes toileting independently and shower by self after set up. Pt independent with footwear. Pt ambulated to bathroom without AD to complete oral care independently. Pt declines shower at this time, stating she is too tired and wants to wait until later. Reported to nrsg and ZIMMERMAN gathered all supplies. After therapy, pt lying in bed with call light/phone in reach. All needs met in room. Therapy Code Descriptions/Definitions Functional [place] Measure: 0=Not Assessed/NA 4=Minimal Assistance 1=Total Assistance 5=Supervision or Setup 2=Maximal Assistance 6=Modified [place] 3=Moderate Assistance 7=Complete IndependenceSCALE: Activities may be completed with or without assistive devices. 2-Jopblemgbg-zyrwgeg completes the activity by him/herself with no assistance from a helper. 5-Set-up or Clean-up Assistance-helper sets up or cleans up; patient completes activity. [place] assists only prior to or following the activity. 4-Supervision or Touching Assistance-helper provides verbal cues and/or touching/steadying and/or contact guard assistance as patient completes activity. Assistance may be provided throughout the activity or intermittently. 3-Partial/Moderate Assistance-helper does LESS THAN HALF the effort. [place] lifts, holds or supports trunk or limbs, but provides less than half the effort. 2-Substantial/Maximal Assistance-helper does MORE THAN HALF the effort. [place] lifts or holds trunk or limbs and provides more than half the effort. 4-Phzealbzo-ffgcxs does ALL the effort. Patient does none of the effort to complete the activity. Or, the assistance of 2 or more helpers is required for the patient to complete the activity. If activity was not attempted, code reason: 7-Patient Refused. 9-Not Applicable-not attempted and the patient did not perform the activity before the current illness, exacerbation or injury. 10-Not Attempted due to Environmental Limitations-(lack of equipment, weather restraints, etc.). 88-Not Attempted due to Medical Conditions or Safety Concerns. Oral Hygiene (QC): 6 On/Off Footwear: 6 OT [facility] Goals Promotions Officer Goals Time Frame: May 02, 2022 Acute change in mental status: 0 Inattention: 0 Disorganized thinkin Altered level of consciousness: 0 Eating (QC): 6 Oral Hygiene (QC): 6 Toileting Hygiene (QC): 6 Shower/Bathe Self (QC): 6 Upper Body Dressing (QC): 6 Lower Body Dressing (QC): 6 On/Off Footwear (QC): 6 Additional Goals: 1-Demonstrate ADL Tasks, 2-Verbalize Understanding, 3- ImproveStrength/Ancelmo 1=Demonstrate adherence to instructed precautions during ADL tasks. 2=Patient will verbalize/demonstrate understanding of assistive devices/modifications for ADL. 3=Patient will improve strength/tolerance for activity to enable patient to perform ADL's. OT Education/Plan Problem List/Assessment Assessment: Decreased Activ Tolerance Discharge Recommendations Plan/Recommendations: Continue POC Treatment Plan/Plan of Care Patient would benefit from OT for education, treatment and training to promote independence in ADL's, mobility, safety and/or upper extremity function for ADL's. Plan of Care: ADL Retraining, Functional Mobility, UE Funct Exercise/Act Treatment Duration: May 02, 2022 Frequency: 5 times per week Estimated Hrs Per Day: .25 hour per day Agreement: Yes Rehab Potential: Good Time Start Time: 10:45 Stop Time: 11:00 DATE: Apr 19, 2022 Total Time Billed (hr/min): 15 Billed Treatment Time 1 visit-ADL 1 (15 min) LOUIS BELTRAN Apr 19, 2022 11:08
[2022-04-19] MEDS: ENOXAPARIN 40 MG/0.4 ML (LOVENOX) SYR SC SCH (17:11)
[2022-04-19 19:16] VITALS: BP 144/81
[2022-04-19] MEDS: MELATONIN 3 MG TABLET PO PRN (19:53)
[2022-04-19] MEDS: GABAPENTIN 300 MG (NEURONTIN) CAP PO SCH (19:53)
[2022-04-19] MEDS: UMECLIDINIUM BROMIDE (INCRUSE ELLIPTA) 7'S IH SCH (19:56)
[2022-04-19 23:02] VITALS: BP 133/65
[2022-04-20] MEDS: CEFEPIME INJECTION 1,000 MG in NS (IVPB) 50 ML IV SCH ×2 (06:19→11:21)
[2022-04-20] MEDS: predniSONE 20 MG TAB PO SCH (06:21)
[2022-04-20] MEDS: RT--FLUTICASONE/SALMETEROL 232-14 (AIRDUO RespiCLICK) IH SCH (07:32)
[2022-04-20 08:09] VITALS: BP 144/76
[2022-04-20] MEDS: SENNOSIDES 8.6 MG (SENOKOT) TAB PO SCH (08:14)
[2022-04-20] MEDS: busPIRone 10 MG (BUSPAR) TAB PO SCH (08:14)
[2022-04-20] MEDS: DOCUSATE SODIUM 100 MG (COLACE) CAP PO SCH (08:14)
[2022-04-20] MEDS: DULoxetine 30 MG (CYMBALTA) CAP PO SCH (08:14)
[2022-04-20] MEDS: ALPRAZolam 0.5 MG (XANAX) TAB PO SCH (08:15)
[2022-04-20] MEDS ORDERED: PANTOPRAZOLE 40 MG (PROTONIX) TAB PO SCH (09:00)
[2022-04-20] MEDS ORDERED: MTP25TSR PO (10:05)
[2022-04-20] MEDS ORDERED: PRED10TA22 PO (10:05)
--- NOTE | 2022-04-20 10:08 | Discharge Summary ---
Diagnosis/Chief Complaint Date of Admission Apr 15, 2022 at 3:50 pm Date of Discharge Discharge Date: Apr 20, 2022 Primary Care No,Local Physician Discharge Summary Discharge Physical Exam Allergies: Coded Allergies: No Known Drug Allergies (Unverified , 04/12/22) Vitals & I&Os Vital Signs Date Time Temp Pulse Resp B/P (MAP) Pulse Ox O2 Delivery O2 Flow Rate FiO2 04/20/22 09:00 94 Nasal Cannula 3.00 04/20/22 08:09 36.4 78 18 144/76 (98) General Appearance: No Apparent Distress, Chronically ill Respiratory: Lungs Clear, No Respiratory Distress Cardiovascular: Regular Rate, Rhythm, No Murmur Gastrointestinal: Normal Bowel Sounds Neurologic/Psychiatric: Alert, Oriented x3 Hospital Course Patient was admitted to swing bed due to debility from influenza infection. She was seen by physical therapy and did well. She returned to her baseline functional status. She remained on her baseline 3 L of oxygen for her COPD. She was discharged home in stable and improved condition to follow-up with her primary care physician in [facility]. She currently sees Dr. Duron but is co nsidering switching to someone else locally. Labs (last 24 hrs) Patient resulted labs reviewed. Discussion & Recommendations Discharge Planning: >30 minutes discharge planning Discharge Home Medications: Active Scripts Active Reported Hydroxyzine HCl 10 Mg Tablet 10-20 Mg PO BID PRN TAKES 1 TO 2 (10MG) TABS Atorvastatin Calcium 40 Mg Tablet 40 Mg PO HS Duloxetine HCl 60 Mg Capsule.dr 60 Mg PO BID Buspirone HCl 10 Mg Tablet 10 Mg PO BID Neurontin (Gabapentin) 300 Mg Capsule 300 Mg PO HS Centrum Silver Women Tablet (Multivits-Min/Iron/FA/Lutein) 8 Mg Iron-400 Mcg-300 Mcg Tablet 1 Each PO DAILY Incruse Ellipta (Umeclidinium [place]) 62.5 Mcg/Actuation Blst.w.dev 1 Puff IH HS Symbicort 160-4.5 Mcg Inhaler (Budesonide/Formoterol Fumarate) 160 Mcg-4.5 Mcg/Actuation Hfa.aer.ad 2 Puff IH BID Ventolin Hfa (Albuterol Sulfate) 1 Puff Puff 2 Puff IH Q4H PRN Instructions to patient/family Please see electronic discharge instructions given to patient. SJ SAUCEDA MD Apr 20, 2022 10:08 am
--- NOTE | 2022-04-20 11:19 | Occ Therapy Progress Note ---
Therapy Progress Note OT attempts treatment this am. Pt declines reporting that she will be discharging later today. She states that she has been getting up ad tyra and completing adls (toileting, dressing and bathing) with setup/independence. Per chart, this appears to be correct. Pt reports she is only "tired" but can still manage adls without assist. OT will discharge. Sonia Massey OT Apr 20, 2022 11:19
--- NOTE | 2022-04-20 13:58 | D/C HH Face to Face Order ---
D/C Face to Face Orders Instructions for Patient Via [facility], Patient Instructions/FollowUp: Please continue to take your medications as written. Please follow up with your primary care doctor to follow up this hospital stay. You need a follow up CT of your lungs to follow up a nodule found this admission in 3 months. Physician to follow Patient: Dr Duron Discharge Diet for Home: No Restrictions Patient Data-Allergies,Ht & Wt Patient Allergies: Coded Allergies: No Known Drug Allergies (Unverified , 04/12/22) Home Health Need/Face to Face Date of Face to Face: Apr 20, 2022 Clinical Findings: Generalized weakness and fatigue I have seen Pt [id number]: Yes Discharged To: Home Diagnosis/Conditions: COPD Flu A Patient is Homebound due to: Muscle weakness, Shortness of breath/distress Homebound Status Due to the above stated illness, injury or surgical procedure (medical condition or diagnosis) and associated clinical findings, the patient is homebound because of his/her inability to leave home except with aid of a supportive device and/or person AND leaving the home requires a considerable and taxing effort or is medically contraindicated. Pt req the following assistanc: Aid of another person Home Health Nursing Orders Home Health Services Order: Nursing Services, Physical Therapy-Evaluate & Treat Therapy Orders Therapy Orders: Physical Therapy, PT to assess for OT Therapy Specific Orders: Eval assistive deivces, Teach enviro modifications/safety, Gait training, Increase strength/endurance Certify Stmt I certify that this patient is under my care and that I, a nurse practitioner or a physician; a ophthalmic surgical assistant working with me, had a face to face encounter that - meets the physician face to face encounter requirements with this patient as dated. SJ SAUCEDA MD Apr 20, 2022 13:58
[2022-04-20 16:52] VITALS: BP 144/76
== END 2022-04-20 16:35 | disposition home health service (06) | DRG 193 ==
LOC: 4TH 15:50
PROVIDERS: ADMIT Internal Medicine; ATTEND Family Medicine
PROC: 5A0935A Assistance with Respiratory Ventilation, Less than 24 Consecutive Hours, High Flow/Velocity Cannula (ICD-10-PCS; principal; 2022-04-16)
DX: J10.1 Influenza due to other identified influenza virus with other respiratory manifestations (principal); J96.21 Acute and chronic respiratory failure with hypoxia; J96.22 Acute and chronic respiratory failure with hypercapnia; J44.1 Chronic obstructive pulmonary disease with (acute) exacerbation; R00.0 Tachycardia, unspecified; I10 Essential (primary) hypertension; F41.9 Anxiety disorder, unspecified; R53.81 Other malaise; R91.1 Solitary pulmonary nodule; Z72.0 Tobacco use
CPT/HCPCS: 94640; 94664; 94760

== ENCOUNTER 2022-08-09 15:40 | Inpatient (IN) | payer MEDICARE ==
[~2022-08-09] VITALS: Ht 157 cm; Wt 61.0 kg
[~2022-08-09 15:40] MED LIST changes: +MTP25TSR PO
[2022-08-09] MEDS ORDERED: RT-ALBUTEROL/IPRATROPIUM 3 ML (DUONEB) VIAL ONE (15:58)
[2022-08-09] MEDS ORDERED: NS IV 1000 ML 1,000 ML IV STA (15:59)
[2022-08-09] MEDS ORDERED: CEFEPIME INJECTION 1,000 MG in NS (IVPB) 50 ML IV ONE (16:00)
[2022-08-09] MEDS ORDERED: DOXYCYCLINE 100 MG (VIBRAMYCIN) TABLET PO ONE (16:00)
[2022-08-09] MEDS ORDERED: RT-ALBUTEROL/IPRATROPIUM 3 ML (DUONEB) VIAL IH ONE (16:00)
[2022-08-09] MEDS ORDERED: methylPREDNISolone 125 MG (Solu-MEDROL) VIAL IV ONE (16:00)
[2022-08-09 16:05] VITALS: BP 117/78
[2022-08-09 16:09] LABS: BASOPHILS % (AUTO) 0 % (0-10); EOSINOPHILS % (AUTO) 0 % (0-10); HEMATOCRIT 44 % (35-52); HEMOGLOBIN 13.7 g/dL (11.5-16.0); LYMPHOCYTES # (AUTO) 2.3 10^3/uL (1.0-4.0); LYMPHOCYTES % (AUTO) 19 % (12-44); MEAN CORPUSCULAR HEMOGLOBIN 30 pg (25-34); MEAN CORPUSCULAR HGB CONC 31 g/dL (32-36); MEAN CORPUSCULAR VOLUME 95 fL (80-99); MEAN PLATELET VOLUME 10.4 fL (9.0-12.2); MONOCYTES # (AUTO) 1.1 10^3/uL (0.0-1.0); MONOCYTES % (AUTO) 9 % (0-12); NEUTROPHILS # (AUTO) 8.6 10^3/uL (1.8-7.8); NEUTROPHILS % (AUTO) 71 % (42-75); PLATELET COUNT 323 10^3/uL (130-400); WHITE BLOOD COUNT 12.2 10^3/uL (4.3-11.0)
[2022-08-09 16:17] LABS: ALBUMIN 4.1 GM/DL (3.2-4.5); CHLORIDE 97 MMOL/L (98-107); POTASSIUM 3.9 MMOL/L (3.6-5.0); SODIUM 137 MMOL/L (135-145)
[2022-08-09 16:18] LABS: CALCIUM 10.2 MG/DL (8.5-10.1)
[2022-08-09 16:19] LABS: GLUCOSE 131 MG/DL (70-105); TOTAL PROTEIN 8.6 GM/DL (6.4-8.2)
[2022-08-09 16:20] LABS: CARBON DIOXIDE 28 MMOL/L (21-32)
[2022-08-09 16:21] LABS: BILIRUBIN,TOTAL 0.2 MG/DL (0.1-1.0)
[2022-08-09 16:23] LABS: ALKALINE PHOSPHATASE 131 U/L (40-136); CREATININE SERUM 0.73 MG/DL (0.60-1.30); GFR ESTIMATED 92
--- NOTE | 2022-08-09 16:23 | ED Cough/URI ---
General Chief Complaint: Respiratory Problems Stated Complaint: SOA Nursing Triage Note: PT TO RM 7 BY W/C, PT CO OF SOA, PT SAT @HOME 55%RM AIR. PT SAT 83% ON2L IN ED. PT RR 50. PT SWEATY,HAVING NECK PULLING AND PURSED LIP BREATHING. STATES HAS BEEN GOING ON FOR A COUPLE DAYS Source: patient, old records Exam Limitations: no limitations History of Present Illness Date Seen by Provider: Aug 09, 2022 Time Seen by Provider: 15:41 Initial Comments 62-year-old female with past medical history of COPD and chronic respiratory failure on home 2 L oxygen coming in due to shortness of breath. Reportedly, her oxygen saturation was 55% on 2 L at home. She is not feeling short of breath for the past couple days and having increasing productive sputum. No fever that she knows of. Has been using her inhalers, no breathing treatments otherwise. Has not been on antibiotics or steroids recently. Denies any chest pain, abdominal pain, nausea, vomiting, diarrhea, focal weakness or numbness, or any other concerns Allergies and Home Medications Allergies Coded Allergies: No Known Drug Allergies (Unverified , 04/12/22) Patient Home Medication List Home Medication List Reviewed: Yes Albuterol Sulfate (Ventolin Hfa) 1 Puff Puff, 2 PUFF IH Q4H PRN for SHORTNESS OF BREATH, (Reported) Entered as Reported by: BRISA CASTILLO on 10/07/21 1544 Atorvastatin Calcium (Atorvastatin Calcium) 40 Mg Tablet, 40 MG PO HS, (Reported) Entered as Reported by: BRISA CASTILLO on 04/13/22 1040 Budesonide/Formoterol Fumarate (Symbicort 160-4.5 Mcg Inhaler) 160 Mcg-4.5 Mcg/Actuation Hfa.aer.ad, 2 PUFF IH BID, (Reported) Entered as Reported by: BRISA CASTILLO on 10/07/21 1544 Buspirone HCl (Buspirone HCl) 10 Mg Tablet, 10 MG PO BID, (Reported) Entered as Reported by: BRISA CASTILLO on 04/13/22 1040 Duloxetine HCl (Duloxetine HCl) 60 Mg Capsule.dr, 60 MG PO BID, (Reported) Entered as Reported by: BRISA CASTILLO on 04/13/22 1040 Gabapentin (Neurontin) 300 Mg Capsule, 300 MG PO HS, (Reported) Entered as Reported by: BRISA CASTILLO on 04/13/22 1040 Hydroxyzine HCl (Hydroxyzine HCl) 10 Mg Tablet, 10-20 MG PO BID PRN for ANXIETY, (Reported) Entered as Reported by: BRISA CASTILLO on 04/13/22 1049 Metoprolol Succinate (Metoprolol Succinate) 25 Mg Tab.er.24h, 25 MG PO DAILY Prescribed by: SJ SAUCEDA on 04/20/22 1005 Multivits-Min/Iron/FA/Lutein (Centrum Silver Women Tablet) 8 Mg Iron-400 Mcg-300 Mcg Tablet, 1 EACH PO DAILY, (Reported) Entered as Reported by: BRISA CASTILLO on 10/07/21 1544 Prednisone (Prednisone) 10 Mg Tab.ds.pk, 10 MG PO DAILY Prescribed by: SJ SAUCEDA on 04/20/22 1005 Umeclidinium [place] (Incruse Ellipta) 62.5 Mcg/Actuation Blst.w.dev, 1 PUFF IH HS, (Reported) Entered as Reported by: BRISA CASTILLO on 10/07/21 1544 Review of Systems Review of Systems Constitutional: No fever EENTM: no symptoms reported Respiratory: see HPI Cardiovascular: no symptoms reported Gastrointestinal: no symptoms reported Genitourinary: no symptoms reported Musculoskeletal: no symptoms reported Skin: no symptoms reported Psychiatric/Neurological: No Symptoms Reported Past Fvshvdv-Hvsana-Ekapxc Hx Patient Social History Tobacco Use?: Yes Tobacco type used: Cigarettes Immunizations Up To Date Tetanus Booster (TDap): More than 5yrs First/Initial COVID19 Vaccinat: Cycle 07/03/20 Second COVID19 Vaccination Vincent: Cycle 07/24/20 Third COVID19 Vaccination Date: Cycle 02/09/21 Seasonal Allergies Seasonal Allergies: No Past Medical History Surgery/Hospitalization HX: HYSTORECTOMY Surgeries: Yes Cardiac, Hysterectomy Respiratory: Yes Pneumonia, COPD Cardiac: Yes Coronary Artery Disease Neurological: No Reproductive Disorders: No BEEF BONER History: Hysterectomy Sexually Transmitted Disease: No Genitourinary: No Gastrointestinal: Yes Hepatitis Chronic Back Pain Endocrine: No HEENT: No Cancer: No Psychosocial: No Adverse Reaction/Blood Tranf: No (STSTES GOT HEP C FROM BLOOD TRANSFUSION) Family Medical History Heart Disease Physical Exam Vital Signs - First Documented 08/09/22 08/09/22 15:40 15:59 Temp 36.4 Pulse 140 Resp 49 B/P (MAP) 151/76 (101) Pulse Ox 96 O2 Delivery Nasal Cannula O2 Flow Rate 2.00 FiO2 50 Capillary Refill : Less Than 3 Seconds Height: '" Weight: lbs. oz. kg; 24.00 BMI Method:Estimated General Appearance: moderate distress, thin, other (Chronically ill-appearing) Eyes: Bilateral Eye Normal Inspection HEENT: PERRL/EOMI, normal ENT inspection, pharynx normal Neck: non-tender, full range of motion, supple, normal inspection Respiratory: chest non-tender, respiratory distress, accessory muscle use, wheezing Cardiovascular: no edema, no murmur, tachycardia Gastrointestinal: normal bowel sounds, non tender, soft; No distended, No guarding, No rebound Extremities: normal range of motion, non-tender, normal inspection, no pedal edema, no calf tenderness, normal capillary refill Neurologic/Psychiatric: no motor/sensory deficits, alert, normal mood/affect, oriented x 3 Skin: normal color, warm/dry Focused Exam Lactate Level 08/09/22 16:00: Lactic Acid Level 1.84 Lactic Acid Level Laboratory Tests Test 08/09/22 16:00 Lactic Acid Level 1.84 MMOL/L (0.50-2.00) Progress/Results/Core Measures Suspected Sepsis SIRS Temperature: Pulse: 128 Respiratory Rate: 24 Laboratory Tests 08/09/22 16:00: White Blood Count 12.2H Blood Pressure 117 /78 Mean: 101 08/09/22 16:00: Lactic Acid Level 1.84 Laboratory Tests 08/09/22 16:00: Creatinine 0.73, Platelet Count 323, Total Bilirubin 0.2 Results/Orders Lab Results Laboratory Tests Test 08/09/22 16:00 08/09/22 16:05 Range/Units White Blood Count 12.2 H 4.3-11.0 10^3/uL Red Blood Count 4.61 3.80-5.11 10^6/uL Hemoglobin 13.7 11.5-16.0 g/dL Hematocrit 44 35-52 % Mean Corpuscular Volume 95 80-99 fL Mean Corpuscular Hemoglobin 30 25-34 pg Mean Corpuscular Hemoglobin Concent 31 L 32-36 g/dL Red Cell Distribution Width 13.2 10.0-14.5 % Platelet Count 323 130-400 10^3/uL Mean Platelet Volume 10.4 9.0-12.2 fL Immature Granulocyte % (Auto) 0 % Neutrophils (%) (Auto) 71 42-75 % Lymphocytes (%) (Auto) 19 12-44 % Monocytes (%) (Auto) 9 0-12 % Eosinophils (%) (Auto) 0 0-10 % Basophils (%) (Auto) 0 0-10 % Neutrophils # (Auto) 8.6 H 1.8-7.8 10^3/uL Lymphocytes # (Auto) 2.3 1.0-4.0 10^3/uL Monocytes # (Auto) 1.1 H 0.0-1.0 10^3/uL Eosinophils # (Auto) 0.0 0.0-0.3 10^3/uL Basophils # (Auto) 0.0 0.0-0.1 10^3/uL Immature Granulocyte # (Auto) 0.0 0.0-0.1 10^3/uL Neutrophils % (Manual) 63 % Lymphocytes % (Manual) 22 % Monocytes % (Manual) 10 % Eosinophils % (Manual) 1 % Band Neutrophils 4 % Platelet Estimate NORMAL Blood Morphology Comment NORMAL D-Dimer 1.31 H 0.00-0.49 UG/ML Sodium Level 137 135-145 MMOL/L Potassium Level 3.9 3.6-5.0 MMOL/L Chloride Level 97 L 98-107 MMOL/L Carbon Dioxide Level 28 21-32 MMOL/L Anion Gap 12 5-14 MMOL/L Blood Urea Nitrogen 6 L 7-18 MG/DL Creatinine 0.73 0.60-1.30 MG/DL Estimat Glomerular Filtration Rate 92 BUN/Creatinine Ratio 8 Glucose Level 131 H 70-105 MG/DL Lactic Acid Level 1.84 0.50-2.00 MMOL/L Calcium Level 10.2 H 8.5-10.1 MG/DL Magnesium Level 2.0 1.6-2.4 MG/DL Total Bilirubin 0.2 0.1-1.0 MG/DL Direct Bilirubin 0.2 0.0-0.3 MG/DL Indirect Bilirubin 0.0 MG/DL Aspartate Amino Transf (AST/SGOT) 17 5-34 U/L Alanine Aminotransferase (ALT/SGPT) 15 0-55 U/L Alkaline Phosphatase 131 40-136 U/L Troponin I < 0.028 <0.028 NG/ML B-Type Natriuretic Peptide 17.5 <100.0 PG/ML Total Protein 8.6 H 6.4-8.2 GM/DL Albumin 4.1 3.2-4.5 GM/DL Lipase 9 8-78 U/L Influenza Type A (RT-PCR) Not Detected Not Detecte Influenza Type B (RT-PCR) Not Detected Not Detecte SARS-CoV-2 RNA (RT-PCR) Not Detected Not Detecte My Orders Orders - TO WATSON MD Albuterol/Ipra Inhalation Soln (Duoneb I (08/09/22 15:58) Monitor-Rhythm Ecg Trace Only (08/09/22 15:59) Pulse Oximetry Order (08/09/22 15:59) Rt Request For Service (08/09/22 15:59) Bipap (Bilevel) Set Up (08/09/22 15:59) Methylprednisolone Sod Succ (Solu-Medrol (08/09/22 16:00) Albuterol/Ipra Inhalation Soln (Duoneb I (08/09/22 16:00) Cefepime Injection (Maxipime Injection) (08/09/22 16:00) Sputum Culture (08/09/22 15:59) Cbc And Manual Diff (08/09/22 15:59) Basic Metabolic Panel (08/09/22 15:59) Liver Panel (08/09/22 15:59) Bnp Morgan (08/09/22 15:59) Influenza A And B By Pcr (08/09/22 15:59) Ekg Tracing (08/09/22 15:59) Lactic Acid Analyzer (08/09/22 15:59) Lipase (08/09/22 15:59) Magnesium (08/09/22 15:59) Troponin I Nely (08/09/22 15:59) Blood Culture (08/09/22 15:59) Covid 19 Inhouse Test (08/09/22 15:59) Ns Iv 1000 Ml (Sodium Chloride 0.9%) (08/09/22 15:59) Fibrin Degradation Products (08/09/22 16:01) Ct Angio Chest W (R/O Pe) (08/09/22 16:49) Ns Iv 1000 Ml (Sodium Chloride 0.9%) (08/09/22 17:00) Doxycycline Injection (Vibramycin Inject (08/09/22 17:00) Iohexol Injection (Omnipaque 350 Mg/Ml 1 (08/09/22 17:00) Received Contrast (Hold Metformin- Contr (08/09/22 17:00) Ns (Ivpb) (Sodium Chloride 0.9% Ivpb Bag (08/09/22 17:00) Iohexol Injection (Omnipaque 350 Mg/Ml 1 (08/09/22 17:15) Received Contrast (Hold Metformin- Contr (08/09/22 17:15) Ns (Ivpb) (Sodium Chloride 0.9% Ivpb Bag (08/09/22 17:15) Medications Given in ED Current Medications Medications Dose Ordered Sig/Magda Route Start Time Stop Time Status Last Admin Dose Admin Cefepime HCl 1000 mg/Sodium Chloride 50 ml @ 100 mls/hr ONCE ONCE IV 08/09/22 16:00 08/09/22 16:29 DC 08/09/22 16:52 100 MLS/HR Doxycycline Hyclate 100 mg/ Sodium Chloride 100 ml @ 100 mls/hr ONCE ONCE IV 08/09/22 17:00 08/09/22 17:59 08/09/22 17:07 100 MLS/HR Iohexol 100 ml ONCE ONCE IV 08/09/22 17:00 08/09/22 17:01 DC 08/09/22 17:07 59 ML Methylprednisolone Sodium Succinate 60 mg ONCE ONCE IV 08/09/22 16:00 08/09/22 16:03 DC 08/09/22 16:11 60 MG Sodium Chloride 100 ml ONCE ONCE IV 08/09/22 17:00 08/09/22 17:01 DC 08/09/22 17:07 80 ML Vital Signs/I&O 08/09/22 08/09/22 08/09/22 08/09/22 15:40 15:40 15:59 16:05 Temp 36.4 Pulse 140 128 Resp 49 24 B/P (MAP) 151/76 (101) Pulse Ox 96 94 94 O2 Delivery Nasal Cannula NIV Bilevel NIV Bilevel O2 Flow Rate 2.00 50.00 FiO2 50 08/09/22 16:40 Pulse 113 Resp 22 B/P (MAP) 117/78 (91) Pulse Ox 98 O2 Delivery NIV Bilevel O2 Flow Rate 50.00 Capillary Refill : Less Than 3 Seconds Blood Pressure Mean: 101 Progress Note : Progress Note 62-year-old female with above history coming in in respiratory distress. The patient was satting in the 80s on her 2 L on arrival here. Placed on BiPAP due to significant work of breathing and concerns for rapid respiratory compromise. There is wheezing in all lung jimenes, she was tachypneic, significant increased work of breathing, pursed lips, accessory muscle use, tripoding, significant improvement after BiPAP and a DuoNeb treatment. An IV was placed and basic labs were obtained as well. She was given steroids as well as broad-spectrum antibiotics. Labs significant for slightly elevated white blood cell count, normal creatinine, negative troponin, normal BNP, normal lactic acid, elevated D-dimer, negative flu and COVID test. CT angiogram chest ordered to assess for pulmonary embolism. I do not see any large PE on my evaluation of the CT imaging. I will contact the hospitalist to admit the patient to the intensive care unit for acute respiratory failure on BiPAP. I then contacted the ICU physician for signout. ECG Initial ECG Impression Date: Aug 09, 2022 Initial ECG Impression Time: 16:09 Initial ECG Rate: 124 Initial ECG Rhythm: S.Tach Comment Narrow QRS, borderline left axis deviation, left anterior fascicular block, no significant ST changes, T wave inversions in the lateral leads Diagnostic Imaging Diagonstic Imaging: Xray (chest) Critical Care Note Critical Care Start Time: 15:41 Stop Time: 17:05 Total Time (minutes) 36 Progress Patient was at significant risk for respiratory compromise and . She was placed on noninvasive ventilation via BiPAP. She was frequently reassessed. I also reviewed prior history and chart reviewed. Also discussed this case with 2 different physicians. All time billed for critical care was separate from procedures. Departure Impression Primary Impression: Acute respiratory failure Qualified Codes: J96.01 - Acute respiratory failure with hypoxia Additional Impression: COPD exacerbation Disposition: ADMITTED INPATIENT Condition: Stable Admissions Decision to Admit Reason: Admit from ER (General) Decision to Admit/Date: Aug 09, 2022 Time/Decision to Admit Time: 17:10 Departure-Patient Inst. Referrals: NAFISA BROWN DO (PCP/Family) Primary Care Physician TO WATSON MD Aug 09, 2022 16:23
[2022-08-09 16:24] LABS: BUN/CREATININE RATIO 8
[2022-08-09 16:25] LABS: BILIRUBIN,DIRECT 0.2 MG/DL (0.0-0.3)
[2022-08-09 16:26] LABS: ALANINE AMINOTRANSFERASE 15 U/L (0-55)
[2022-08-09 16:27] LABS: LIPASE 9 U/L (8-78)
[2022-08-09 16:47] LABS: BAND NEUTROPHILS 4 %; EOSINOPHILS % (MANUAL) 1 %; LYMPHOCYTES % (MANUAL) 22 %; MONOCYTES % (MANUAL) 10 %; NEUTROPHILS % (MANUAL) 63 %; PLATELET ESTIMATE NORMAL; RBC MORPH NORMAL
[2022-08-09] MEDS ORDERED: NS 100 ML (IVPB) BAG IV ONE ×2 (17:00→17:15)
[2022-08-09] MEDS ORDERED: NS IV 1000 ML 1,000 ML IV SCH (17:00)
[2022-08-09] MEDS ORDERED: HOLD METFORMIN - RECEIVED CONTRAST 20 ML VIAL IV SCH ×2 (17:00→17:15)
[2022-08-09] MEDS ORDERED: DOXYCYCLINE INJECTION 100 MG in NS (IVPB) 100 ML IV ONE (17:00)
[2022-08-09] MEDS ORDERED: IOHEXOL 350 MG/ML 100 ML (OMNIPAQUE 350) VIAL IV ONE ×2 (17:00→17:15)
--- NOTE | 2022-08-09 17:19 | Diagnostic Imaging Report ---
INDICATION: Shortness of breath. EXAMINATION: CTA chest. TECHNIQUE: Thin axial sections of the chest were obtained following an intravenous contrast bolus. Multiplanar MIP images were reconstructed and reviewed. FINDINGS: There are emphysematous changes in the lungs. There are some patchy areas of interstitial infiltrate and/or scarring in the lungs. There is no alveolar consolidation. There are no effusions or pneumothoraces. There is no hilar or mediastinal lymphadenopathy. There is some calcific atherosclerosis of the aorta, but no aneurysm or dissection. There are no pulmonary emboli. There is no evidence of right ventricular strain. IMPRESSION: COPD. No evidence for pulmonary embolism. Dictated by: Dictated on workstation # [id number]
[2022-08-09] MEDS ORDERED: NS IV 500 ML 500 ML IV PRN (20:00)
[2022-08-09] MEDS ORDERED: LACTATED RINGERS 1,000 ML IV ONE (20:02)
[2022-08-09 20:18] VITALS: BP 130/82
[2022-08-09] MEDS ORDERED: RT-ALBUTEROL/IPRATROPIUM 3 ML (DUONEB) VIAL INH PRN (20:30)
--- NOTE | 2022-08-09 20:54 | Tele-ICU Progress Note ---
Progress Note 62F with COPD on 2L home O2 admitted for COPD exacerbation. Presented feeling SOB for a couple days with increased cough and sputum production. Denied fevers. At home found to be 55% on 2L. In ED found to be 80% on 2L, in moderate distress with accessory muscle use, pursed lip breathing, tripodding and wheezing. She was placed on BiPap and duoneb with significant improvement. CTA done, official read pending but no large PE, no discrete areas of consolidation. Multiple chr onic changes including bullous disease, peribronchial cuffing, possibly some bronchiectasis. - COPD exacerbation: admit to ICU, continue bipap, nebs, steroids, empiric abx. Patient assessed via real time audiovisual communciation system. CCT8 min Focused Exam Lactate Level 08/09/22 16:00: Lactic Acid Level 1.84 Height, Weight, BMI Height: '" Weight: lbs. oz. kg; 24.62 BMI Method:Estimated CODY CREWS MD Aug 09, 2022 20:54
[2022-08-09] MEDS: LACTATED RINGERS 1,000 ML IV SCH (21:27)
[2022-08-09] MEDS ORDERED: ONDANSETRON 4 MG/2 ML (SDV) Z0FRAN IV PRN (21:30)
[2022-08-09] MEDS: RT-ALBUTEROL/IPRATROPIUM 3 ML (DUONEB) VIAL INH SCH (22:10)
[2022-08-09] MEDS: CEFEPIME 1,000 MG/NS 50 ML IVPB IV SCH ×2 (22:29)
[2022-08-10 02:30] VITALS: BP 135/73
[2022-08-10] MEDS: RT-ALBUTEROL/IPRATROPIUM 3 ML (DUONEB) VIAL INH SCH ×6 (02:30→21:49)
[2022-08-10] MEDS: CEFEPIME 1,000 MG/NS 50 ML IVPB IV SCH ×6 (03:58→17:00)
[2022-08-10 06:22] LABS: BASOPHILS % (AUTO) 0 % (0-10); EOSINOPHILS % (AUTO) 0 % (0-10); HEMATOCRIT 36 % (35-52); HEMOGLOBIN 11.2 g/dL (11.5-16.0); LYMPHOCYTES % (AUTO) 12 % (12-44); MEAN CORPUSCULAR HEMOGLOBIN 30 pg (25-34); MEAN CORPUSCULAR HGB CONC 31 g/dL (32-36); MEAN CORPUSCULAR VOLUME 96 fL (80-99); MEAN PLATELET VOLUME 10.5 fL (9.0-12.2); MONOCYTES # (AUTO) 0.2 10^3/uL (0.0-1.0); MONOCYTES % (AUTO) 3 % (0-12); NEUTROPHILS # (AUTO) 7.3 10^3/uL (1.8-7.8); NEUTROPHILS % (AUTO) 85 % (42-75); PLATELET COUNT 242 10^3/uL (130-400); WHITE BLOOD COUNT 8.6 10^3/uL (4.3-11.0)
[2022-08-10 06:44] LABS: ALBUMIN 3.4 GM/DL (3.2-4.5); BILIRUBIN,TOTAL 0.1 MG/DL (0.1-1.0); CALCIUM 9.4 MG/DL (8.5-10.1); CREATININE SERUM 0.59 MG/DL (0.60-1.30); MAGNESIUM 1.7 MG/DL (1.6-2.4); PHOSPHORUS 3.2 MG/DL (2.3-4.7); POTASSIUM 4.3 MMOL/L (3.6-5.0); TOTAL PROTEIN 7.1 GM/DL (6.4-8.2)
[2022-08-10] MEDS: MAGNESIUM 1 GM/100 ML IVPB 100 ML IV SCH ×5 (06:47→09:58)
[2022-08-10] MEDS: POTASSIUM CL 10MEQ/50ML IVPB 50 ML IV SCH (06:47)
[2022-08-10] MEDS: KCL 20 MEQ TAB (K-DUR) PO SCH (06:47)
[2022-08-10] MEDS: LACTATED RINGERS 1,000 ML IV SCH ×2 (08:23→14:42)
--- NOTE | 2022-08-10 08:38 | Tele-ICU Progress Note ---
Subjective Date Seen by a Provider: Aug 10, 2022 Subjective/Events-last exam This virtual visit was conducted using real time audio/video. Thank you for asking us to see this patient for respiratory insufficiency due to AECOPD. PE: Appears comfortable on BiPAP. VSS. O2 sat 99% on BiPAP 40%, 07/12. HEENT: No obvious masses, adenopathy or JVD. Chest: wheezing on auscultation. CV: RRR S1 S2 No murmur or added sounds. Abd: Non-tender. Bowel sounds Y. : Unremarkable. Diane N. CARPENTER MAINTENANCE/psychiatric: Grossly intact. No obvious focal findings. Extremities: No edema. Capillary refill < 3 seconds. Skin: unremarkable. Results: Elevated BG 116. Decreased Hb 11.2. CTAC: bullous changes. Available chart/ vitals / labs / images reviewed. Video assessment done using teleICU camera, rest of exam as per RN. A/P: Respiratory insufficiency: Continue present management with BiPAP, duonebs, medrol Monitor for increasing oxygenation needs and/or need for intubation. Critical Care: critically ill patient. Cont.abx Discussed with JORDEN Richardson. Asked RN to reach out to eICU if any questions or concerns later. Time spent with patient/coordination of care with other health professionals (mins): 22 Sepsis Event Evaluation Height, Weight, BMI Height: '" Weight: lbs. oz. kg; 24.50 BMI Method:Estimated Focused Exam Lactate Level 08/09/22 16:00: Lactic Acid Level 1.84 Exam Exam Patient acknowledged, consented, and participated in this virtual visit which was conducted using real time audio/video Vital Signs Date Time Temp Pulse Resp B/P (MAP) Pulse Ox O2 Delivery O2 Flow Rate FiO2 08/10/22 08:00 36.4 08/10/22 07:52 95 High Flow N/C 6.00 08/10/22 06:28 95 OxyMask 5.00 08/10/22 06:00 97 24 137/73 (94) 96 OxyMask 6.00 08/10/22 05:00 93 20 131/62 (85) 96 OxyMask 6.00 08/10/22 04:55 OxyMask 6.00 08/10/22 04:00 93 23 129/67 (87) 96 NIV Bilevel 40.00 08/10/22 04:00 97 NIV Bilevel 40 08/10/22 03:58 36.2 NIV Bilevel 40.00 08/10/22 03:00 89 36 136/68 (90) 96 NIV Bilevel 45.00 08/10/22 02:30 89 23 97 40.00 08/10/22 02:00 113 30 135/73 (93) 96 NIV Bilevel 45.00 08/10/22 01:00 98 23 152/77 (102) 98 NIV Bilevel 45.00 08/10/22 00:53 100 08/10/22 00:00 101 23 155/77 (103) 98 NIV Bilevel 45.00 08/09/22 23:59 96 NIV Bilevel 45 08/09/22 23:00 103 23 144/102 (116) 94 NIV Bilevel 45.00 08/09/22 22:12 97 NIV Bilevel 45 08/09/22 22:00 111 46 142/82 (102) 97 NIV Bilevel 45.00 08/09/22 21:00 98 46 142/82 (102) 98 NIV Bilevel 45.00 08/09/22 20:32 103 08/09/22 20:18 36.4 100 97 45 08/09/22 20:09 98 NIV Bilevel 45 08/09/22 20:00 104 42 146/75 (98) 98 NIV Bilevel 45.00 08/09/22 19:59 36.1 102 23 146/89 (108) 98 NIV Bilevel 45.00 08/09/22 19:37 100 20 130/82 97 Room Air 08/09/22 19:27 104 29 97 45.00 08/09/22 16:40 113 22 117/78 (91) 98 NIV Bilevel 50.00 08/09/22 16:05 128 24 94 50.00 08/09/22 15:59 94 NIV Bilevel 50 08/09/22 15:40 36.4 140 49 151/76 (101) 96 NIV Bilevel 08/09/22 15:40 Nasal Cannula 2.00 I & O 08/10/22 07:00 Intake Total 600 ml Output Total 0 ml Balance 600 ml Height & Weight Height: '" Weight: lbs. oz. kg; 24.50 BMI Method:Estimated General Appearance: Thin Respiratory: Wheezing (See free text) Capillary Refill: Less Than 3 Seconds Peripheral Pulses: 1+ Dorsalis Pedis (R), 1+ Left Dors-Pedis (L) Gastrointestinal: normal bowel sounds, non tender, soft; No distended, No guarding, No rebound Results Lab Laboratory Tests 08/09/22 16:00 08/10/22 06:11 Assessment/Plan Assessment/Plan See free text. Critical Care: Critically Ill Patient CHUCK EDMONDS MD Aug 10, 2022 08:38
[2022-08-10] MEDS ORDERED: methylPREDNISolone 125 MG (Solu-MEDROL) VIAL IVP SCH (09:00)
[2022-08-10] MEDS ORDERED: DOXYCYCLINE INJECTION 100 MG in NS (IVPB) 100 ML IV SCH (09:00)
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
[2022-08-10] MEDS ORDERED: ACET-2267 PO (11:03)
[2022-08-10] MEDS ORDERED: CYCL5TAB PO (11:03)
[2022-08-10] MEDS ORDERED: MTP25TSR PO (11:03)
[2022-08-10] MEDS: guaiFENesin/DM (ROBITUSSIN DM) 10 ML UDC PO PRN (11:07)
[2022-08-10] MEDS: ACETAMINOPHEN 500 MG TAB (TYLENOL) PO PRN (14:46)
[2022-08-10] MEDS: DOXYCYCLINE 100 MG (VIBRAMYCIN) TABLET PO SCH (19:43)
[2022-08-10] MEDS: CEFDINIR 300 MG (OMNICEF) CAP PO SCH (19:44)
[2022-08-10] MEDS: ALPRAZolam 0.5 MG (XANAX) TAB PO PRN (22:04)
[2022-08-11] MEDS: RT-ALBUTEROL/IPRATROPIUM 3 ML (DUONEB) VIAL INH SCH ×6 (02:43→21:39)
[2022-08-11 04:01] LABS: BASOPHILS % (AUTO) 0 % (0-10); EOSINOPHILS % (AUTO) 0 % (0-10); HEMATOCRIT 33 % (35-52); HEMOGLOBIN 10.5 g/dL (11.5-16.0); LYMPHOCYTES # (AUTO) 1.1 10^3/uL (1.0-4.0); LYMPHOCYTES % (AUTO) 12 % (12-44); MEAN CORPUSCULAR HEMOGLOBIN 30 pg (25-34); MEAN CORPUSCULAR HGB CONC 32 g/dL (32-36); MEAN CORPUSCULAR VOLUME 95 fL (80-99); MEAN PLATELET VOLUME 11.3 fL (9.0-12.2); MONOCYTES # (AUTO) 0.6 10^3/uL (0.0-1.0); MONOCYTES % (AUTO) 6 % (0-12); NEUTROPHILS # (AUTO) 7.9 10^3/uL (1.8-7.8); NEUTROPHILS % (AUTO) 81 % (42-75); PLATELET COUNT 223 10^3/uL (130-400); WHITE BLOOD COUNT 9.8 10^3/uL (4.3-11.0)
[2022-08-11 04:12] LABS: ALBUMIN 3.2 GM/DL (3.2-4.5); POTASSIUM 5.1 MMOL/L (3.6-5.0)
[2022-08-11 04:13] LABS: CALCIUM 9.3 MG/DL (8.5-10.1)
[2022-08-11 04:15] LABS: TOTAL PROTEIN 6.7 GM/DL (6.4-8.2)
[2022-08-11 04:16] LABS: BILIRUBIN,TOTAL 0.1 MG/DL (0.1-1.0)
[2022-08-11 04:18] LABS: CREATININE SERUM 0.64 MG/DL (0.60-1.30); PHOSPHORUS 2.6 MG/DL (2.3-4.7)
[2022-08-11 04:21] LABS: MAGNESIUM 2.5 MG/DL (1.6-2.4)
[2022-08-11] MEDS: KCL 20 MEQ TAB (K-DUR) PO SCH (04:57)
[2022-08-11] MEDS: MAGNESIUM 1 GM/100 ML IVPB 100 ML IV SCH (04:57)
[2022-08-11] MEDS: POTASSIUM CL 10MEQ/50ML IVPB 50 ML IV SCH (04:57)
[2022-08-11] MEDS: predniSONE 20 MG TAB PO SCH (06:16)
[2022-08-11] MEDS: DOXYCYCLINE 100 MG (VIBRAMYCIN) TABLET PO SCH ×2 (06:16→17:43)
[2022-08-11] MEDS: CEFDINIR 300 MG (OMNICEF) CAP PO SCH ×2 (08:23→20:17)
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
[2022-08-11 13:57] VITALS: BP 140/65
--- NOTE | 2022-08-11 14:04 | Physical Therapy Evaluation ---
PT Evaluation-General Medical Diagnosis Admission Date Aug 09, 2022 at 19:40 Medical Diagnosis: shortness of breath Onset Date: Aug 10, 2022 Therapy Diagnosis Therapy Diagnosis: Gait deficit, strength deficit Precautions Precautions/Isolations: Fall Prevention, Standard Precautions Weight Bear Status Right Lower Extremity: Right Full Weight Bearing Left Lower Extremity: Left Full Weight Bearing Referral Physician: Dr. Bishop Reason for Referral: Evaluation/Treatment Medical History Pertinent Medical History: CAD, COPD, Smoking Social History Home: Apartment Current Living Status: Children Entry Into Home: Stairs With Railing PT Steps Into Home: 27 Prior Prior Level of Function SCALE: Activities may be completed with or without assistive devices. 7-Tqywjlkrzh-wlwbret completes the activity by him/herself with no assistance from a helper. 5-Set-up or Clean-up Assistance-helper sets up or cleans up; patient completes activity. Howard assists only prior to or following the activity. 4-Supervision or Touching Assistance-helper provides verbal cues and/or touching/steadying and/or contact guard assistance as patient completes activity. Assistance may be provided throughout the activity or intermittently. 3-Partial/Moderate Assistance-helper does LESS THAN HALF the effort. Howard lifts, holds or supports trunk or limbs, but provides less than half the effort. 2-Substantial/Maximal Assistance-helper does MORE THAN HALF the effort. Howard lifts or holds trunk or limbs and provides more than half the effort. 5-Ijpcaovcl-xdefme does ALL the effort. Patient does none of the effort to complete the activity. Or, the assistance of 2 or more helpers is required for the patient to complete the activity. If activity was not attempted, code reason: 7-Patient Refused. 9-Not Applicable-not attempted and the patient did not perform the activity before the current illness, exacerbation or injury. 10-Not Attempted due to Environmental Limitations-(lack of equipment, weather restraints, etc.). 88-Not Attempted due to Medical Conditions or Safety Concerns. Bed Mobility: 6 Transfers (B,C,W/C): 6 Gait: 6 Stairs: 6 Indoor Mobility (Ambulation): Independent Stairs: Independent Prior Devices Use: None PT Evaluation-Current Subjective Patient lying supine in bed upon PT arrival, agreeable to treatment. Patient rates pain at 0/10 currently. Objective Patient Orientation: Person, Place, Time, Situation Attachments: Oxygen, IV ROM/Strength ROM Lower Extremities WFLs bilaterally all planes Strength Lower Extremities BLEs 4/5 all planes Sensory Vision: Functional Hearing: Functional Sensation Right Lower Extremit: Intact Sensation Left Lower Extremity: Intact Transfers Roll Left to Right (QC): 6 Sit to Lying (QC): 6 Lying to Sitting/Side of Bed(Q: 6 Sit to Stand (QC): 4 Chair/Nrd-zt-Toolx Xfer(QC): 4 Gait Does the Patient Walk?: Yes Mode of Locomotion: Walk Anticipated Mode of Locomotion: Walk Walk 10 feet (QC): 6 Walk 50 ft with 2 Turns(QC): 4 Walk 150 ft (QC): 4 Distance: 250 feet Gait Assistive Device: FWW Balance Sitting Static: Normal Sitting Dynamic: Normal Standing Static: Good Standing Dynamic: Fair Assessment/Needs Patient tolerated treatment well. She performs all observed bed mobility and transfers with SBA to [place]. Patient ambulates 250 feet with FWW, with SBA and verbal cues for safety, progression, conservation of energy and control of FWW. Patient will most likely not need any AD, however FWW was used this session as she has not been out of bed except to use the BR. Patient in bed post treatment with all needs met, nursing notified, call light in hand. Rehab Potential: Good PT Half-Way Goals Half-Way Goals PT Bulk Gas Specialist Goals Time Frame: September 17, 2022 Roll Left & Right (QC): 6 Sit to Lying (QC): 6 Lying-Sitting on Side/Bed(QC): 6 Sit to Stand (QC): 6 Chair/Lek-ab-Gqdad Xfer(QC): 6 Toilet Transfer (QC): 6 Does the Patient Walk: Yes Walk 10 feet (QC): 6 Walk 50ft with 2 Turns (QC): 6 Walk 150 ft (QC): 6 1 Step (curb) (QC): 4 4 Steps (QC): 4 12 Steps (QC): 4 PT Plan Problem List Problem List: Activity Tolerance, Functional Strength, Safety, Balance, Gait, Transfer, Bed Mobility, ROM Treatment/Plan Treatment Plan: Continue Plan of Care Treatment Plan: Bed Mobility, Education, Functional Activity Ancelmo, Functional Strength, Group Therapy, Gait, Safety, Therapeutic Exercise, Transfers Treatment Duration: September 17, 2022 Frequency: 6 times per week Estimated Hrs Per Day: .25 hour per day Patient and/or Family Agrees t: Yes Safety Risks/Education Patient Education: Gait Training, Transfer Techniques Teaching Recipient: Patient, Family Teaching Methods: Demonstration, Discussion Response to Teaching: Verbalize Understanding, Return Demonstration Time Time In: 1330 Time Out: 1355 DATE: Aug 11, 2022 Total Billed Treatment Time: 25 Total Billed Treatment Visit, Sandra CABRERA JOHN A PT Aug 11, 2022 14:04
[2022-08-11 16:03] VITALS: BP 117/58
[2022-08-11 20:00] VITALS: BP 165/68
[2022-08-11] MEDS: MUPIROCIN 2% OINT 22 GM (BACTROBAN) TUBE TOP SCH (20:17)
[2022-08-11] MEDS: guaiFENesin/DM (ROBITUSSIN DM) 10 ML UDC PO PRN (20:17)
[2022-08-11] MEDS: ALPRAZolam 0.5 MG (XANAX) TAB PO PRN (23:58)
[2022-08-12] VITALS (8 sets, daily range): BP systolic 130–151; BP diastolic 59–78
[2022-08-12] MEDS: RT-ALBUTEROL/IPRATROPIUM 3 ML (DUONEB) VIAL INH SCH ×5 (03:28→20:38)
[2022-08-12 05:45] LABS: BASOPHILS % (AUTO) 0 % (0-10); EOSINOPHILS % (AUTO) 0 % (0-10); HEMATOCRIT 36 % (35-52); HEMOGLOBIN 11.1 g/dL (11.5-16.0); LYMPHOCYTES # (AUTO) 2.5 10^3/uL (1.0-4.0); LYMPHOCYTES % (AUTO) 25 % (12-44); MEAN CORPUSCULAR HEMOGLOBIN 30 pg (25-34); MEAN CORPUSCULAR HGB CONC 31 g/dL (32-36); MEAN CORPUSCULAR VOLUME 97 fL (80-99); MEAN PLATELET VOLUME 10.5 fL (9.0-12.2); MONOCYTES # (AUTO) 0.9 10^3/uL (0.0-1.0); MONOCYTES % (AUTO) 9 % (0-12); NEUTROPHILS # (AUTO) 6.6 10^3/uL (1.8-7.8); NEUTROPHILS % (AUTO) 65 % (42-75); PLATELET COUNT 282 10^3/uL (130-400); WHITE BLOOD COUNT 10.1 10^3/uL (4.3-11.0)
[2022-08-12 06:02] LABS: ALBUMIN 3.4 GM/DL (3.2-4.5); BILIRUBIN,TOTAL 0.2 MG/DL (0.1-1.0); CALCIUM 9.6 MG/DL (8.5-10.1); CREATININE SERUM 0.74 MG/DL (0.60-1.30); MAGNESIUM 1.7 MG/DL (1.6-2.4); PHOSPHORUS 2.8 MG/DL (2.3-4.7); POTASSIUM 3.7 MMOL/L (3.6-5.0); TOTAL PROTEIN 6.7 GM/DL (6.4-8.2)
[2022-08-12] MEDS: DOXYCYCLINE 100 MG (VIBRAMYCIN) TABLET PO SCH ×2 (06:14→17:04)
[2022-08-12] MEDS: predniSONE 20 MG TAB PO SCH (06:14)
[2022-08-12] MEDS: CEFDINIR 300 MG (OMNICEF) CAP PO SCH ×2 (08:24→20:05)
[2022-08-12] MEDS: MUPIROCIN 2% OINT 22 GM (BACTROBAN) TUBE TOP SCH ×2 (08:24→20:06)
[2022-08-12] MEDS ORDERED: busPIRone 10 MG (BUSPAR) TAB PO PRN (08:30)
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
--- NOTE | 2022-08-12 10:14 | Physical Therapy Daily Note ---
PT Daily Note-Current Subjective Patient agrees to PT. She reports she isn't very motivated today. Pain Section J - Health Conditions 1. Rarely or not at all 2. Occasionally 3. Frequently 4. Almost constantly 8. Unable to answer Pain Effect on Sleep: 1 Pain Interference with Therapy: 1 Pain Interference w/Day-to-Day: 1 Mental Status Patient Orientation: Normal For Age Attachments: Oxygen (7L O2 HF) Transfers SCALE: Activities may be completed with or without assistive devices. 9-Qgnbalwkgk-hmfamik completes the activity by him/herself with no assistance from a helper. 5-Set-up or Clean-up Assistance-helper sets up or cleans up; patient completes activity. Walton assists only prior to or following the activity. 4-Supervision or Touching Assistance-helper provides verbal cues and/or touching/steadying and/or contact guard assistance as patient completes activity. Assistance may be provided throughout the activity or intermittently. 3-Partial/Moderate Assistance-helper does LESS THAN HALF the effort. Walton lifts, holds or supports trunk or limbs, but provides less than half the effort. 2-Substantial/Maximal Assistance-helper does MORE THAN HALF the effort. Walton lifts or holds trunk or limbs and provides more than half the effort. 4-Sgmmewilu-nwpptx does ALL the effort. Patient does none of the effort to complete the activity. Or, the assistance of 2 or more helpers is required for the patient to complete the activity. If activity was not attempted, code reason: 7-Patient Refused. 9-Not Applicable-not attempted and the patient did not perform the activity before the current illness, exacerbation or injury. 10-Not Attempted due to Environmental Limitations-(lack of equipment, weather restraints, etc.). 88-Not Attempted due to Medical Conditions or Safety Concerns. Sit to Lying (QC): 6 Lying to Sitting/Side of Bed(Q: 6 Sit to Stand (QC): 6 Weight Bearing Right Lower Extremity: Right Full Weight Bearing Left Lower Extremity: Left Full Weight Bearing Gait Training Distance: 300' Walk 10 feet (QC): 6 Walk 50 ft with 2 Turns(QC): 6 Walk 150 ft (QC): 6 Gait Assistive Device: None safe and functional with no deviation Assessment Patient is up independently in room and is ambulating functional distance independently. Assist for O2 tank only. PT to dismiss patient from services at this time. PT Manager Deli Goals Shelter Goals PT Manager Deli Goals Time Frame: September 17, 2022 Roll Left & Right (QC): 6 Sit to Lying (QC): 6 Lying-Sitting on Side/Bed(QC): 6 Sit to Stand (QC): 6 Chair/Npe-xf-Jhhgk Xfer(QC): 6 Toilet Transfer (QC): 6 Does the Patient Walk: Yes Walk 10 feet (QC): 6 Walk 50ft with 2 Turns (QC): 6 Walk 150 ft (QC): 6 1 Step (curb) (QC): 4 4 Steps (QC): 4 12 Steps (QC): 4 PT Plan Treatment/Plan Treatment Plan: Discontinue PT Treatment Plan: Bed Mobility, Education, Functional Activity Ancelmo, Functional Strength, Group Therapy, Gait, Safety, Therapeutic Exercise, Transfers Treatment Duration: September 17, 2022 Frequency: 6 times per week Estimated Hrs Per Day: .25 hour per day Patient and/or Family Agrees t: Yes Time Time In: 927 Time Out: 937 DATE: Aug 12, 2022 Total Billed Treatment Time: 10 Total Billed Treatment 1 visit FA 10 min JASON BROWN PT Aug 12, 2022 10:14
[2022-08-12] MEDS ORDERED: RT-ALBUTEROL/IPRATROPIUM 3 ML (DUONEB) VIAL INH PRN (11:45)
[2022-08-12] MEDS: NICOTINE 21 MG (NICODERM) PATCH TD SCH (13:18)
[2022-08-12] MEDS: DULoxetine 30 MG (CYMBALTA) CAP PO SCH (20:06)
[2022-08-12] MEDS: GABAPENTIN 300 MG (NEURONTIN) CAP PO SCH (20:06)
[2022-08-12] MEDS: RT--FLUTICASONE/SALMETEROL 232-14 (AIRDUO RespiCLICK) IH SCH (20:38)
[2022-08-12] MEDS: UMECLIDINIUM BROMIDE (INCRUSE ELLIPTA) 7'S IH SCH (20:40)
[2022-08-12] MEDS: ALPRAZolam 0.25 MG (XANAX) TAB PO PRN (22:23)
[2022-08-12] MEDS: guaiFENesin/DM (ROBITUSSIN DM) 10 ML UDC PO PRN (22:23)
[2022-08-13] MEDS: RT-ALBUTEROL/IPRATROPIUM 3 ML (DUONEB) VIAL INH SCH ×4 (03:02→21:10)
[2022-08-13 03:43] VITALS: BP 144/67
[2022-08-13] MEDS: DOXYCYCLINE 100 MG (VIBRAMYCIN) TABLET PO SCH ×2 (05:45→16:56)
[2022-08-13] MEDS: predniSONE 20 MG TAB PO SCH (05:45)
[2022-08-13 06:36] LABS: BASOPHILS % (AUTO) 0 % (0-10); EOSINOPHILS % (AUTO) 0 % (0-10); HEMATOCRIT 39 % (35-52); HEMOGLOBIN 12.2 g/dL (11.5-16.0); LYMPHOCYTES # (AUTO) 3.4 10^3/uL (1.0-4.0); LYMPHOCYTES % (AUTO) 37 % (12-44); MEAN CORPUSCULAR HEMOGLOBIN 30 pg (25-34); MEAN CORPUSCULAR HGB CONC 31 g/dL (32-36); MEAN CORPUSCULAR VOLUME 95 fL (80-99); MEAN PLATELET VOLUME 10.1 fL (9.0-12.2); MONOCYTES # (AUTO) 0.9 10^3/uL (0.0-1.0); MONOCYTES % (AUTO) 9 % (0-12); NEUTROPHILS # (AUTO) 4.8 10^3/uL (1.8-7.8); NEUTROPHILS % (AUTO) 52 % (42-75); PLATELET COUNT 275 10^3/uL (130-400); WHITE BLOOD COUNT 9.4 10^3/uL (4.3-11.0)
[2022-08-13 07:13] VITALS: BP 148/77
[2022-08-13 07:24] LABS: ALBUMIN 3.4 GM/DL (3.2-4.5); POTASSIUM 3.8 MMOL/L (3.6-5.0)
[2022-08-13] MEDS: RT--FLUTICASONE/SALMETEROL 232-14 (AIRDUO RespiCLICK) IH SCH ×2 (07:24→21:11)
[2022-08-13 07:25] LABS: CALCIUM 9.7 MG/DL (8.5-10.1)
[2022-08-13 07:26] LABS: TOTAL PROTEIN 6.7 GM/DL (6.4-8.2)
[2022-08-13 07:28] LABS: BILIRUBIN,TOTAL 0.2 MG/DL (0.1-1.0)
[2022-08-13 07:29] LABS: PHOSPHORUS 3.9 MG/DL (2.3-4.7)
[2022-08-13 07:30] LABS: CREATININE SERUM 0.64 MG/DL (0.60-1.30)
[2022-08-13 07:33] LABS: MAGNESIUM 1.9 MG/DL (1.6-2.4)
[2022-08-13] MEDS: CEFDINIR 300 MG (OMNICEF) CAP PO SCH ×2 (08:45→21:05)
[2022-08-13] MEDS: NICOTINE 21 MG (NICODERM) PATCH TD SCH (08:45)
[2022-08-13] MEDS: MUPIROCIN 2% OINT 22 GM (BACTROBAN) TUBE TOP SCH ×2 (08:45→21:03)
[2022-08-13] MEDS: NICOTINE PATCH REMOVAL TP SCH (08:47)
[2022-08-13 11:26] VITALS: BP 138/70
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
[2022-08-13] MEDS: ACETAMINOPHEN 500 MG TAB (TYLENOL) PO PRN (12:14)
[2022-08-13] MEDS: ENOXAPARIN 40 MG/0.4 ML (LOVENOX) SYR SQ SCH (12:14)
[2022-08-13 16:10] VITALS: BP 162/69
[2022-08-13 19:58] VITALS: BP 166/88
[2022-08-13] MEDS: DULoxetine 30 MG (CYMBALTA) CAP PO SCH (21:05)
[2022-08-13] MEDS: GABAPENTIN 300 MG (NEURONTIN) CAP PO SCH (21:05)
[2022-08-13] MEDS: UMECLIDINIUM BROMIDE (INCRUSE ELLIPTA) 7'S IH SCH (21:11)
[2022-08-13] MEDS: ALPRAZolam 0.25 MG (XANAX) TAB PO PRN (23:31)
[2022-08-14 00:17] VITALS: BP 164/82
[2022-08-14 04:02] VITALS: BP 133/82
[2022-08-14 05:44] LABS: BASOPHILS % (AUTO) 0 % (0-10); EOSINOPHILS % (AUTO) 0 % (0-10); HEMATOCRIT 39 % (35-52); HEMOGLOBIN 12.3 g/dL (11.5-16.0); LYMPHOCYTES # (AUTO) 3.9 10^3/uL (1.0-4.0); LYMPHOCYTES % (AUTO) 36 % (12-44); MEAN CORPUSCULAR HEMOGLOBIN 30 pg (25-34); MEAN CORPUSCULAR HGB CONC 32 g/dL (32-36); MEAN CORPUSCULAR VOLUME 94 fL (80-99); MEAN PLATELET VOLUME 10.6 fL (9.0-12.2); MONOCYTES # (AUTO) 0.9 10^3/uL (0.0-1.0); MONOCYTES % (AUTO) 9 % (0-12); NEUTROPHILS # (AUTO) 5.7 10^3/uL (1.8-7.8); NEUTROPHILS % (AUTO) 52 % (42-75); PLATELET COUNT 305 10^3/uL (130-400); WHITE BLOOD COUNT 10.8 10^3/uL (4.3-11.0)
[2022-08-14 06:04] LABS: ALBUMIN 3.5 GM/DL (3.2-4.5); POTASSIUM 3.7 MMOL/L (3.6-5.0)
[2022-08-14 06:06] LABS: CALCIUM 9.8 MG/DL (8.5-10.1)
[2022-08-14 06:07] LABS: TOTAL PROTEIN 6.6 GM/DL (6.4-8.2)
[2022-08-14 06:09] LABS: BILIRUBIN,TOTAL 0.2 MG/DL (0.1-1.0)
[2022-08-14 06:10] LABS: CREATININE SERUM 0.64 MG/DL (0.60-1.30); PHOSPHORUS 4.1 MG/DL (2.3-4.7)
[2022-08-14 06:13] LABS: MAGNESIUM 1.8 MG/DL (1.6-2.4)
[2022-08-14] MEDS: predniSONE 20 MG TAB PO SCH (06:19)
[2022-08-14] MEDS: DOXYCYCLINE 100 MG (VIBRAMYCIN) TABLET PO SCH ×2 (06:19→18:09)
[2022-08-14] MEDS: RT--FLUTICASONE/SALMETEROL 232-14 (AIRDUO RespiCLICK) IH SCH ×2 (07:09→21:21)
[2022-08-14] MEDS: RT-ALBUTEROL/IPRATROPIUM 3 ML (DUONEB) VIAL INH SCH ×3 (07:09→21:21)
[2022-08-14] MEDS: CEFDINIR 300 MG (OMNICEF) CAP PO SCH ×2 (08:32→20:00)
[2022-08-14] MEDS: MUPIROCIN 2% OINT 22 GM (BACTROBAN) TUBE TOP SCH ×2 (08:32→20:01)
[2022-08-14] MEDS: NICOTINE 21 MG (NICODERM) PATCH TD SCH (08:32)
[2022-08-14] MEDS: NICOTINE PATCH REMOVAL TP SCH (08:32)
[2022-08-14] MEDS: ACETAMINOPHEN 500 MG TAB (TYLENOL) PO PRN (08:37)
[2022-08-14 08:53] VITALS: BP 131/65
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
[2022-08-14 11:30] VITALS: BP 127/66
[2022-08-14] MEDS: ENOXAPARIN 40 MG/0.4 ML (LOVENOX) SYR SQ SCH (12:20)
[2022-08-14 15:39] VITALS: BP 124/62
[2022-08-14] MEDS: DULoxetine 30 MG (CYMBALTA) CAP PO SCH (20:00)
[2022-08-14] MEDS: GABAPENTIN 300 MG (NEURONTIN) CAP PO SCH (20:00)
[2022-08-14] MEDS: ALPRAZolam 0.25 MG (XANAX) TAB PO PRN (20:02)
[2022-08-14 20:17] VITALS: BP 154/78
[2022-08-14] MEDS: UMECLIDINIUM BROMIDE (INCRUSE ELLIPTA) 7'S IH SCH (21:22)
[2022-08-15 00:26] VITALS: BP 134/74
[2022-08-15] MEDS: RT-ALBUTEROL/IPRATROPIUM 3 ML (DUONEB) VIAL INH SCH ×3 (02:16→15:26)
[2022-08-15 04:00] VITALS: BP 134/71
[2022-08-15 05:51] LABS: BASOPHILS % (AUTO) 0 % (0-10); EOSINOPHILS # (AUTO) 0.1 10^3/uL (0.0-0.3); EOSINOPHILS % (AUTO) 1 % (0-10); HEMATOCRIT 40 % (35-52); HEMOGLOBIN 12.5 g/dL (11.5-16.0); LYMPHOCYTES # (AUTO) 3.9 10^3/uL (1.0-4.0); LYMPHOCYTES % (AUTO) 35 % (12-44); MEAN CORPUSCULAR HEMOGLOBIN 29 pg (25-34); MEAN CORPUSCULAR HGB CONC 32 g/dL (32-36); MEAN CORPUSCULAR VOLUME 93 fL (80-99); MEAN PLATELET VOLUME 10.3 fL (9.0-12.2); MONOCYTES # (AUTO) 0.8 10^3/uL (0.0-1.0); MONOCYTES % (AUTO) 7 % (0-12); NEUTROPHILS # (AUTO) 6.3 10^3/uL (1.8-7.8); NEUTROPHILS % (AUTO) 55 % (42-75); PLATELET COUNT 305 10^3/uL (130-400); WHITE BLOOD COUNT 11.3 10^3/uL (4.3-11.0)
[2022-08-15] MEDS: DOXYCYCLINE 100 MG (VIBRAMYCIN) TABLET PO SCH (05:58)
[2022-08-15] MEDS: predniSONE 20 MG TAB PO SCH (05:58)
[2022-08-15 06:08] LABS: ALBUMIN 3.5 GM/DL (3.2-4.5); BILIRUBIN,TOTAL 0.1 MG/DL (0.1-1.0); CREATININE SERUM 0.77 MG/DL (0.60-1.30); MAGNESIUM 1.8 MG/DL (1.6-2.4); PHOSPHORUS 4.8 MG/DL (2.3-4.7); TOTAL PROTEIN 6.7 GM/DL (6.4-8.2)
[2022-08-15 08:00] VITALS: BP 125/75
[2022-08-15] MEDS: NICOTINE PATCH REMOVAL TP SCH (08:21)
[2022-08-15] MEDS: NICOTINE 21 MG (NICODERM) PATCH TD SCH (08:21)
[2022-08-15] MEDS: CEFDINIR 300 MG (OMNICEF) CAP PO SCH (08:21)
[2022-08-15] MEDS: MUPIROCIN 2% OINT 22 GM (BACTROBAN) TUBE TOP SCH (08:22)
[2022-08-15] MEDS: RT--FLUTICASONE/SALMETEROL 232-14 (AIRDUO RespiCLICK) IH SCH (08:54)
[2022-08-15 09:46] VITALS: BP 125/75
[2022-08-15] MEDS ORDERED: PRED10TA22 PO (11:08)
[2022-08-15 11:51] VITALS: BP 131/74
[2022-08-15] MEDS: ENOXAPARIN 40 MG/0.4 ML (LOVENOX) SYR SQ SCH (12:02)
--- NOTE | 2022-08-15 15:04 | Discharge Summary ---
Discharge Summary Hospital Course Problems/Dx: (1) Acute on chronic respiratory failure with hypoxia and hypercapnia Status: Acute (2) COPD exacerbation Status: Acute (3) Pulmonary nodule less than 1 cm in diameter with moderate to high risk for malignant neoplasm Status: Acute (4) Tobacco abuse Status: Chronic Hospital Course Date of Admission: Aug 09, 2022 at 19:40 Admission Diagnosis : Acute on chronic respiratory failure due to COPD exace rbation [facility] Physician/Provider: Jesus Duron DO Date of Discharge: 08/15/22 Discharge Diagnosis: Acute on chronic respiratory failure due to COPD exacerbation Hospital Course: Duyen Major is a 62 year old female with PMH COPD, tobacco abuse, pulmonary nodule, who was admitted with acute on chronic respiratory failure with hypoxia and hypercapnia due to COPD exacerbation. She was treated with steroids and breathing treatments and improved. She returned to near her previous baseline oxygen requirement 2 L. She was requiring 2 L at rest and 4 L with activity. She was given a steroid taper. She lives in [facility] and has trouble getting to her doctor appointments. A referral was sent to establish with Dr. Rivas. She was discharged home in stable condition. Labs and Pending Lab Test: Laboratory Tests 08/15/22 05:03: White Blood Count 11.3H, Red Blood Count 4.26, Hemoglobin 12.5, Hematocrit 40, Mean Corpuscular Volume 93, Mean Corpuscular Hemoglobin 29, Mean Corpuscular Hemoglobin Concent 32, Red Cell Distribution Width 13.4, Platelet Count 305, Mean Platelet Volume 10.3, Immature Granulocyte % (Auto) 3, Neutrophils (%) (Auto) 55, Lymphocytes (%) (Auto) 35, Monocytes (%) (Auto) 7, Eosinophils (%) (Auto) 1, Basophils (%) (Auto) 0, Neutrophils # (Auto) 6.3, Lymphocytes # (Auto) 3.9, Monocytes # (Auto) 0.8, Eosinophils # (Auto) 0.1, Basophils # (Auto) 0.0, Immature Granulocyte # (Auto) 0.3H, Sodium Level 136, Potassium Level 4.0, Chloride Level 94L, Carbon Dioxide Level 31, Anion Gap 11, Blood Urea Nitrogen 20H, Creatinine 0.77, Estimat Glomerular Filtration Rate 86, BUN/Creatinine Ratio 26, Glucose Level 91, Calcium Level 9.0, Corrected Calcium 9.4, Phosphorus Level 4.8H, Magnesium Level 1.8, Total Bilirubin 0.1, Aspartate Amino Transf (AST/SGOT) 23, Alanine Aminotransferase (ALT/SGPT) 35, Alkaline Phosphatase 79, Total Protein 6.7, Albumin 3.5 Microbiology 08/09/22 MRSA Screen - Final, Complete 08/09/22 Blood Culture - Final, Complete No growth Home Meds Active Prednisone 10 Mg Tab.ds.pk 10 Mg PO DAILY Take 6 tabs(60mg)daily,decrease by 1 tab(10MG)daily. Reported Tylenol Extra Strength (Acetaminophen) 500 Mg Tablet 1,000 Mg PO Q8H PRN Metoprolol Succinate 25 Mg Tab.er.24h 25 Mg PO HS Cyclobenzaprine HCl 5 Mg Tablet 5 Mg PO Q8H PRN Duloxetine HCl 60 Mg Capsule.dr 60 Mg PO HS Buspirone HCl 10 Mg Tablet 10 Mg PO TID PRN Neurontin (Gabapentin) 300 Mg Capsule 600 Mg PO HS TAKES 2 (300MG) CAPS Centrum Silver Women Tablet (Multivits-Min/Iron/FA/Lutein) 8 Mg Iron-400 Mcg-300 Mcg Tablet 1 Each PO DAILY Incruse Ellipta (Umeclidinium [place]) 62.5 Mcg/Actuation Blst.w.dev 1 Puff IH HS Symbicort 160-4.5 Mcg Inhaler (Budesonide/Formoterol Fumarate) 160 Mcg-4.5 Mcg/Actuation Hfa.aer.ad 2 Puff IH BID Ventolin Hfa (Albuterol Sulfate) 1 Puff Puff 2 Puff IH Q4H PRN Assessment/Pt Instructions See instructions Discharge Planning: >30 minutes discharge planning Discharge Instructions Discharge Diet: No Restrictions Activity as Tolerated: Yes Discharge Physical Examination Vital Signs Vital Signs Date Time Temp Pulse Resp B/P (MAP) Pulse Ox O2 Delivery O2 Flow Rate FiO2 08/15/22 11:51 36.0 115 20 131/74 (93) 92 High Flow N/C 3.00 08/15/22 09:46 32 General Appearance: No Apparent Distress, WD/WN Respiratory: No Respiratory Distress, Decreased Breath Sounds, Wheezing Cardiovascular: No Murmur, Tachycardia Gastrointestinal: Normal Bowel Sounds, Soft Extremity: Normal Inspection, No Pedal Edema Skin: Normal Color, Warm/Dry Neurologic/Psychiatric: Alert, Normal Mood/Affect Allergies: Coded Allergies: No Known Drug Allergies (Unverified , 04/12/22) Copy Copies To 1: ODESSA RIVAS DO Discharge Summary Date of Admission Aug 09, 2022 at 19:40 Date of Discharge Discharge Date: Aug 15, 2022 Discharge Time: 10:50 Admission Diagnosis Acute on Chronic respiratory failure due to COPD exacerbation Discharge Diagnosis (1) Acute on chronic respiratory failure with hypoxia and hypercapnia Status: Acute (2) COPD exacerbation Status: Acute (3) Pulmonary nodule less than 1 cm in diameter with moderate to high risk for malignant neoplasm Status: Acute (4) Tobacco abuse Status: Chronic RATNA HERRERA MD Aug 15, 2022 15:04
[2022-08-15 17:02] VITALS: BP 131/74
== END 2022-08-15 16:31 | disposition home or self-care (01) | DRG 189 ==
LOC: EDUNIT# 15:40 → ER 15:41 → ICU 19:40 → 4TH 08-11 13:02
PROVIDERS: ADMIT Family Medicine; ATTEND Internal Medicine
PROC: 5A09357 Assistance with Respiratory Ventilation, Less than 24 Consecutive Hours, Continuous Positive Airway Pressure (ICD-10-PCS; principal; 2022-08-09)
PROC: 5A0945A Assistance with Respiratory Ventilation, 24-96 Consecutive Hours, High Flow/Velocity Cannula (ICD-10-PCS; 2022-08-10)
DX: J96.22 Acute and chronic respiratory failure with hypercapnia (principal); J44.1 Chronic obstructive pulmonary disease with (acute) exacerbation; J96.21 Acute and chronic respiratory failure with hypoxia; R91.1 Solitary pulmonary nodule; I25.10 Atherosclerotic heart disease of native coronary artery without angina pectoris; F17.210 Nicotine dependence, cigarettes, uncomplicated; F41.9 Anxiety disorder, unspecified; Z99.81 Dependence on supplemental oxygen; Z20.822 Contact with and (suspected) exposure to COVID-19; Z79.52 Long term (current) use of systemic steroids; Z79.899 Other long term (current) drug therapy
CPT/HCPCS: 36410; 36415; 71275; 76937; 80048; 80053; 80076; 83605; 83690; 83735; 83880; 84100; 84484; 85007; 85025; 85027; 85379; 87040; 87081; 87636; 93005; 93041; 94640; 94660; 94760; 94761

== ENCOUNTER 2022-10-19 05:49 | Outpatient (CLI) | payer MEDICARE ==
[~2022-10-19] VITALS: Ht 157.5 cm; Wt 63.6 kg
[~2022-10-19 05:49] MED LIST changes: +ACET-2267 PO; +CYCL5TAB PO
== END 2022-10-19 15:03 | disposition home or self-care (01) ==
LOC: PREOP 05:49
PROVIDERS: ATTEND Specialist
DX: Z01.818 Encounter for other preprocedural examination (principal)

== ENCOUNTER 2022-10-28 08:56 | Day surgery (SDC) | payer MEDICARE ==
[~2022-10-28] VITALS: Ht 157.5 cm; Wt 63.6 kg
[2022-10-28] MEDS: TETRACAINE 0.5% OPHTH SOLN 4 ML BTL (SINGLE DOSE ONLY) OU PRN ×4 (09:11→09:26)
[2022-10-28 09:14] VITALS: BP 148/72
[2022-10-28] MEDS ORDERED: TIMOLOL 0.5% (CATARACTS) 0.3 ML BTL OU PRN (09:15)
[2022-10-28] MEDS ORDERED: MOXIFLOXACIN OPHTH SOLN 5 MG/ML 0.3 ML SYRINGE OP ONE (09:15)
[2022-10-28] MEDS ORDERED: POVIDONE (BETADINE) OPHTH SOLN 5% 30 ML OP ONE (09:15)
[2022-10-28] MEDS: TROPICAMIDE 1% OPH SOLN (MYDRIACYL) 15 ML BTL OP SCH ×3 (09:18→09:27)
[2022-10-28] MEDS: PHENYLEPHRINE 10% OPHTH (NEO-SYN) 5 ML BTL OU SCH ×3 (09:18→09:26)
[2022-10-28] MEDS ORDERED: MIDAZOLAM 2 MG/2 ML (VERSED) VIAL ONE (09:19)
[2022-10-28 09:29] VITALS: BP 141/73
--- NOTE | 2022-10-28 09:52 | Ophthalmologist Pre-Op Note ---
Pre-Operative Progress Note H&P Reviewed The H&P was reviewed, patient examined and no changes noted. Date H&P Reviewed: Oct 28, 2022 Time H&P Reviewed: 09:52 Pre-Op Dx Cataract, Left Eye PASHA HUNTER MD Oct 28, 2022 09:52
--- NOTE | 2022-10-28 10:15 | Ophthalmology Operative Report ---
Cataract removal/placement IOL PREOPERATIVE DIAGNOSIS: Cataract Left Eye POSTOPERATIVE DIAGNOSIS: Cataract Left Eye PROCEDURE: Cataract removal and placement of posterior chamber implant, left eye SURGEON: Chacorta Hunter ANESTHESIA: Topical with sedation COMPLICATIONS: None ESTIMATED BLOOD LOSS: Minimal DESCRIPTION OF PROCEDURE: After proper informed consent was obtained, the patient, a 62 female, was taken to the Operating Room and the left eye was anesthetized with tetracaine. The left eye was then prepped and draped in the usual manner. A wire lid speculum was placed. A paracentesis was made at the left hand position. Preservative free lidocaine was injected into the anterior chamber followed by viscoelastic. A clear corneal incision was made in the temporal position. A capsulorrhexis was preformed and the central nuclear and cortical material were removed. The posterior capsule was polished and an Gerber 19.0 AU00T0 was placed into the capsular bag. The residual viscoelastic was aspirated and balanced saline solution was injected into the anterior chamber. Moxifloxacin was injected into the anterior chamber. The wound was checked and found to be water tight. The patient tolerated the procedure well without complications. CHACORTA HUNTER MD Oct 28, 2022 10:15
[2022-10-28 10:50] VITALS: BP 155/71
[2022-10-28] MEDS ORDERED: acetaZOLAMIDE ER 500 MG CAP (DIAMOX SEQUELS) PO ONE (12:00)
--- NOTE | 2022-10-28 15:00 | Anesthesia-General Post-Op ---
MAC Patient Condition Mental Status/LOC: Same as Preop Cardiovascular: Satisfactory Nausea/Vomiting: Absent Respiratory: Satisfactory Pain: Controlled Complications: Absent Post Op Complications Complications None Follow Up Care/Instructions Patient Instructions None needed. Anesthesiology Discharge Order Discharge Order Patient was doing well after the procedure with no complaints, stable vital signs, no apparent adverse anesthesia problems. No complications reported per nursing. JULIANNE JOAQUIN DO Oct 28, 2022 15:00
== END 2022-10-28 10:50 | disposition home or self-care (01) ==
LOC: SDC 08:56
PROVIDERS: ATTEND Specialist
DX: H25.9 Unspecified age-related cataract (principal); J44.9 Chronic obstructive pulmonary disease, unspecified; F17.200 Nicotine dependence, unspecified, uncomplicated
CPT/HCPCS: 66984; V2632

== ENCOUNTER 2022-11-09 05:29 | Outpatient (CLI) | payer MEDICARE | END 2022-11-09 15:32 | LOC: PREOP 05:29 | PROVIDERS: ATTEND Specialist | DX: Z01.818 Encounter for other preprocedural examination (principal) ==

== ENCOUNTER 2023-01-23 08:48 | Inpatient (IN) | payer MEDICARE ==
[~2023-01-23] VITALS: Ht 161.5 cm; Wt 58.0 kg
[2023-01-23] MEDS ORDERED: NS IV 500 ML 500 ML IV ONE (09:15)
[2023-01-23 09:21] LABS: BASOPHILS % (AUTO) 0 % (0-10); EOSINOPHILS % (AUTO) 0 % (0-10); HEMATOCRIT 38 % (35-52); HEMOGLOBIN 12.4 g/dL (11.5-16.0); LYMPHOCYTES # (AUTO) 1.6 10^3/uL (1.0-4.0); LYMPHOCYTES % (AUTO) 14 % (12-44); MEAN CORPUSCULAR HEMOGLOBIN 30 pg (25-34); MEAN CORPUSCULAR HGB CONC 33 g/dL (32-36); MEAN CORPUSCULAR VOLUME 91 fL (80-99); MEAN PLATELET VOLUME 11.4 fL (9.0-12.2); MONOCYTES # (AUTO) 1.4 10^3/uL (0.0-1.0); MONOCYTES % (AUTO) 12 % (0-12); NEUTROPHILS # (AUTO) 8.3 10^3/uL (1.8-7.8); NEUTROPHILS % (AUTO) 73 % (42-75); PLATELET COUNT 228 10^3/uL (130-400); WHITE BLOOD COUNT 11.4 10^3/uL (4.3-11.0)
[2023-01-23 09:32] LABS: ALBUMIN 3.7 GM/DL (3.2-4.5); POTASSIUM 3.1 MMOL/L (3.6-5.0)
[2023-01-23 09:33] LABS: CALCIUM 8.8 MG/DL (8.5-10.1); PROTHROMBIN TIME PATIENT 13.4 SEC (12.2-14.7)
[2023-01-23 09:35] LABS: TOTAL PROTEIN 7.3 GM/DL (6.4-8.2)
[2023-01-23 09:36] LABS: BILIRUBIN,TOTAL 0.4 MG/DL (0.1-1.0)
[2023-01-23 09:38] LABS: CREATININE SERUM 0.79 MG/DL (0.60-1.30)
[2023-01-23 10:05] LABS: BILIRUBIN,URINE NEGATIVE (NEGATIVE); CLARITY,URINE CLEAR; COLOR,URINE YELLOW; GLUCOSE, URINE (UA) NEGATIVE (NEGATIVE); KETONES,URINE NEGATIVE (NEGATIVE); LEUKOCYTE ESTERASE ,URINE 1+ (NEGATIVE); NITRITE,URINE NEGATIVE (NEGATIVE); PROTEIN,URINE 1+ (NEGATIVE)
[2023-01-23 10:06] LABS: BACTERIA,URINE MODERATE /HPF; RBC,URINE 0-2 /HPF; SQUAMOUS EPITHELIAL CELL,UR RARE /HPF; WBC,URINE 25-50 /HPF
--- NOTE | 2023-01-23 10:14 | ED General ---
General Chief Complaint: Respiratory Problems Stated Complaint: SOB | FEVER | VOMITING Nursing Triage Note: Patient states that she began having shortness of breath approximately 1 week ago. Patient began running a fever with cough and congestion on Monday. Patient reports that her shortness of breath got worse in the middle of the night last night. Patient reports taking Tylenol for her fever since Monday. Source of Information: Patient Exam Limitations: No Limitations History of Present Illness Date Seen by Provider: Jan 23, 2023 Time Seen by Provider: 09:04 Initial Comments Report of shortness of breath further approximately last week. States that she has been running a fever with cough and congestion over the last several days. She does have history of COPD. States this overall worsened over the last 24 hours. Patient also is complaining of some dysuria. She lives at home alone but her kids help her some. She does have report of weakness and just overall not feeling well. She does have nebulizer machine at home and uses that as needed. She is on oxygen via nasal cannula at 2 L when at rest and at 4 L and she is moving. Denies vomiting or diarrhea. Timing/Duration: 1 Week, Getting Worse Severity: Moderate Associated Systoms: Cough, Fever/Chills; No Nausea/Vomiting; Shortness of Air, Weakness Allergies and Home Medications Allergies Coded Allergies: No Known Drug Allergies (Unverified , 10/19/22) Patient Home Medication List Home Medication List Reviewed: Yes Acetaminophen (Tylenol Extra Strength) 500 Mg Tablet, 1,000 MG PO Q8H PRN for PAIN-MILD (1-4), (Reported) Entered as Reported by: BRISA CASTILLO on 08/10/22 1103 Albuterol Sulfate (Ventolin Hfa) 1 Puff Puff, 2 PUFF IH Q4H PRN for SHORTNESS OF BREATH, (Reported) Entered as Reported by: BRISA CASTILLO on 10/07/21 1544 Budesonide/Formoterol Fumarate (Symbicort 160-4.5 Mcg Inhaler) 160 Mcg-4.5 Mcg/Actuation Hfa.aer.ad, 2 PUFF IH BID, (Reported) Entered as Reported by: BRISA CASTILLO on 10/07/21 1544 Buspirone HCl (Buspirone HCl) 10 Mg Tablet, 10 MG PO TID PRN for ANXIETY, (Reported) Entered as Reported by: BRISA CASTILLO on 04/13/22 1040 Duloxetine HCl (Duloxetine HCl) 60 Mg Capsule.dr, 60 MG PO HS, (Reported) Entered as Reported by: BRISA CASTILLO on 04/13/22 1040 Gabapentin (Neurontin) 300 Mg Capsule, 600 MG PO HS, (Reported) Entered as Reported by: BRISA CASTILLO on 04/13/22 1040 Metoprolol Succinate (Metoprolol Succinate) 25 Mg Tab.er.24h, 25 MG PO HS, (Reported) Entered as Reported by: BRISA CASTILLO on 08/10/22 1103 Multivits-Min/Iron/FA/Lutein (Centrum Silver Women Tablet) 8 Mg Iron-400 Mcg-300 Mcg Tablet, 1 EACH PO DAILY, (Reported) Entered as Reported by: BRISA CASTILLO on 10/07/21 1544 Umeclidinium [place] (Incruse Ellipta) 62.5 Mcg/Actuation Blst.w.dev, 1 PUFF IH HS, (Reported) Entered as Reported by: BRISA CASTILLO on 10/07/21 1544 Review of Systems Review of Systems Constitutional: see HPI; No chills; fever, weakness EENTM: nose congestion; No throat pain Respiratory: cough, short of breath Cardiovascular: No chest pain, No edema Gastrointestinal: No diarrhea, No nausea, No vomiting Genitourinary: no symptoms reported Musculoskeletal: no symptoms reported Skin: no symptoms reported All Other Systems Reviewed Negative Unless Noted: Yes Past Xgmqifq-Xyqnhw-Xaybuj Hx Patient Social History Tobacco Use?: Yes Tobacco type used: Cigarettes Smoking Status: Current Everyday Smoker Substance use?: No Alcohol Use?: No Pt feels they are or have been: No Immunizations Up To Date Tetanus Booster (TDap): More than 5yrs First/Initial COVID19 Vaccinat: Scloby 07/03/20 Second COVID19 Vaccination Vincent: Scloby 07/24/20 Third COVID19 Vaccination Date: Scloby 02/09/21 Seasonal Allergies Seasonal Allergies: No Past Medical History Surgery/Hospitalization HX: COPD Surgeries: Yes Cardiac, Hysterectomy Respiratory: Yes Pneumonia, COPD Cardiac: Yes Coronary Artery Disease Neurological: No Reproductive Disorders: No 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 oz. kg; 22.00 BMI Method:Estimated General Appearance: Anxious, Mild Distress HEENT: PERRL/EOMI, Pharyngeal Erythema, Other (Membranes dry) Neck: Normal Inspection, Non Tender Respiratory: No Crackles; Wheezing (Few trace wheezes bilateral) Cardiovascular: Regular Rate, Rhythm, No Murmur Gastrointestinal: Non Tender, Soft Back: Normal Inspection, No Vertebral Tenderness Extremity: Normal Range of Motion, Non Tender Neurologic/Psychiatric: Alert, Oriented x3 Skin: normal color, warm/dry Focused Exam Lactate Level 01/23/23 08:59: Lactic Acid Level 2.83*H 01/23/23 10:50: Lactic Acid Level 0.94 Lactic Acid Level Laboratory Tests Test 01/23/23 08:59 01/23/23 10:50 Lactic Acid Level 2.83 MMOL/L (0.50-2.00) *H 0.94 MMOL/L (0.50-2.00) Progress/Results/Core Measures Suspected Sepsis SIRS Temperature: Pulse: 116 Respiratory Rate: 22 Laboratory Tests 01/23/23 08:59: White Blood Count 11.4H Blood Pressure 139 /105 Mean: 116 01/23/23 08:59: Lactic Acid Level 2.83*H 01/23/23 10:50: Lactic Acid Level 0.94 Laboratory Tests 01/23/23 08:59: Creatinine 0.79, INR Comment 1.0, Platelet Count 228, Total Bilirubin 0.4 Results/Orders Lab Results Laboratory Tests Test 01/23/23 08:59 01/23/23 09:40 01/23/23 10:50 Range/Units White Blood Count 11.4 H 4.3-11.0 10^3/uL Red Blood Count 4.13 3.80-5.11 10^6/uL Hemoglobin 12.4 11.5-16.0 g/dL Hematocrit 38 35-52 % Mean Corpuscular Volume 91 80-99 fL Mean Corpuscular Hemoglobin 30 25-34 pg Mean Corpuscular Hemoglobin Concent 33 32-36 g/dL Red Cell Distribution Width 12.4 10.0-14.5 % Platelet Count 228 130-400 10^3/uL Mean Platelet Volume 11.4 9.0-12.2 fL Immature Granulocyte % (Auto) 1 % Neutrophils (%) (Auto) 73 42-75 % Lymphocytes (%) (Auto) 14 12-44 % Monocytes (%) (Auto) 12 0-12 % Eosinophils (%) (Auto) 0 0-10 % Basophils (%) (Auto) 0 0-10 % Neutrophils # (Auto) 8.3 H 1.8-7.8 10^3/uL Lymphocytes # (Auto) 1.6 1.0-4.0 10^3/uL Monocytes # (Auto) 1.4 H 0.0-1.0 10^3/uL Eosinophils # (Auto) 0.0 0.0-0.3 10^3/uL Basophils # (Auto) 0.0 0.0-0.1 10^3/uL Immature Granulocyte # (Auto) 0.1 0.0-0.1 10^3/uL Prothrombin Time 13.4 12.2-14.7 SEC INR Comment 1.0 0.8-1.4 Activated Partial Thromboplast Time 37 H 24-35 SEC Sodium Level 135 135-145 MMOL/L Potassium Level 3.1 L 3.6-5.0 MMOL/L Chloride Level 98 98-107 MMOL/L Carbon Dioxide Level 23 21-32 MMOL/L Anion Gap 14 5-14 MMOL/L Blood Urea Nitrogen 6 L 7-18 MG/DL Creatinine 0.79 0.60-1.30 MG/DL Estimat Glomerular Filtration Rate 83 BUN/Creatinine Ratio 8 Glucose Level 134 H 70-105 MG/DL Lactic Acid Level 2.83 *H 0.94 0.50-2.00 MMOL/L Calcium Level 8.8 8.5-10.1 MG/DL Corrected Calcium 9.0 8.5-10.1 MG/DL Total Bilirubin 0.4 0.1-1.0 MG/DL Aspartate Amino Transf (AST/SGOT) 19 5-34 U/L Alanine Aminotransferase (ALT/SGPT) 18 0-55 U/L Alkaline Phosphatase 96 40-136 U/L C-Reactive Protein High Sensitivity 29.62 H 0.00-0.50 MG/DL B-Type Natriuretic Peptide 49.4 <100.0 PG/ML Total Protein 7.3 6.4-8.2 GM/DL Albumin 3.7 3.2-4.5 GM/DL Influenza Type A (RT-PCR) Not Detected Not Detecte Influenza Type B (RT-PCR) Not Detected Not Detecte SARS-CoV-2 RNA (RT-PCR) Detected H Not Detecte Urine Color YELLOW Urine Clarity CLEAR Urine pH 6.0 5-9 Urine Specific [place] 1.010 L 1.016-1.022 Urine Protein 1+ H NEGATIVE Urine Glucose (UA) NEGATIVE NEGATIVE Urine Ketones NEGATIVE NEGATIVE Urine Nitrite NEGATIVE NEGATIVE Urine Bilirubin NEGATIVE NEGATIVE Urine Urobilinogen 1.0 < = 1.0 MG/DL Urine Leukocyte Esterase 1+ H NEGATIVE Urine RBC (Auto) TRACE H NEGATIVE Urine RBC 0-2 /HPF Urine WBC 25-50 H /HPF Urine Squamous Epithelial Cells RARE /HPF Urine Crystals NONE /LPF Urine Bacteria MODERATE H /HPF Urine Casts NONE /LPF Urine Mucus NEGATIVE /LPF Urine Culture Indicated YES My Orders Orders - JIGNESH RAMIREZ MD Cbc And Automated Diff (01/23/23 09:) Comprehensive Metabolic Panel (01/23/23 09:02) Blood Culture (01/23/23 09:02) Sputum Culture (01/23/23 09:02) Urinalysis (01/23/23:) Urine Culture (01/23/23:) Protime With Inr (01/23/23:) Partial Thromboplastin Time (01/23/23:02) Chest 1 View, Ap/Pa Only (01/23/23:) Ed Iv/Invasive Line Start (01/23/23:02) Ed Iv/Invasive Line Start (01/23/23:) Vital Signs Adult Sepsis Patie Q15M (01/23/23 09:02) O2 (01/23/23 09:02) Remove Rings In Anticipation O (01/23/23:02) Lactic Acid Analyzer (01/23/23 09:) Influenza A And B By Pcr (10/2/23 09:02) Covid 19 Inhouse Test (01/23/23 09:02) Ekg Tracing (01/23/23 09:02) Bnp Nely (01/23/23 09:02) Hs C Reactive Protein (01/23/23 09:02) Ns Iv 500 Ml (Ns Iv 500 Ml) (01/23/23 09:15) Dexamethasone Tablet (Dexamethasone Ta (01/23/23 11:14) Ceftriaxone Iv/Im (Ceftriaxone Iv/Im) (01/23/23 11:15) Code/Resuscitation (01/23/23 11:19) Ed Admission (Communication) (01/23/23 11:19) Medications Given in ED Current Medications Medications Dose Ordered Sig/Magda Route Start Time Stop Time Status Last Admin Dose Admin Sodium Chloride 500 ml @ 0 mls/hr Q0M ONCE IV 01/23/23 09:15 01/23/23 09:16 DC 01/23/23 09:18 999 MLS/HR Vital Signs/I&O 01/23/23 01/23/23 08:56 08:56 Temp 38.1 Pulse 116 Resp 22 B/P (MAP) 139/105 (116) Pulse Ox 95 O2 Delivery Room Air Nasal Cannula O2 Flow Rate 4.00 4.00 Capillary Refill : Blood Pressure Mean: 116 Progress Note : Progress Note Seen and evaluated. IV, labs, normal saline 500 mL bolus. Labs include CBC, CMP, CRP, BMP COVID and influenza screen, UA, blood cultures and lactic acid. Diagnosis includes COVID-19, COPD exacerbation, UTI, pneumonia, electrolyte abnormality, dehydration 1115: Chest x-ray reviewed by me shows no obvious infiltrate on my interpretation. COVID is positive and influenza is negative. CBC does show elevated white count at 11.4 globin. Coags show slightly elevated PTT but otherwise normal. Chemistries show grossly normal electrolytes except for potassium is slightly low. Creatinine is normal. LFTs are normal. CRP is grossly elevated at at 29 with normal BNP. Lactic acid noted to be 2.83 which I believe is secondary to respiratory distress and dehydration. Patient has findings of sepsis with UA that is positive for white cells and bacteria but is nitrite negative. We will consider sepsis given her lab findings although these all may just relate to COVID infection in the setting of COPD. We will treat UTI with Rocephin 1 g IV. I did discuss the case with Dr. Bishop and reviewed all current findings and evaluation. She agrees with Rocephin and treatment of UTI. We will give dexamethasone 6 mg p.o. Patient would be outside of window for COVID therapeutic. She has excepted patient for admission, inpatient status. This was discussed with the patient who was greatly appreciative and thinks that she will do much better in this setting. I agree. ECG Initial ECG Impression Date: Jan 23, 2023 Initial ECG Impression Time: 09:04 Initial ECG Rate: 1119 Initial ECG Rhythm: S.Tach Comment Sinus tachycardia with left axis deviation. No evidence of ST elevation VA. Interpreted by me. Diagnostic Imaging Diagonstic Imaging: Xray Plain Films/CT/US/NM/MRI: chest Comments [facility], [place] NAME: GLENDY [facility] REC#: [id number] PT STATUS: REG ER : 1960 PHYSICIAN: JIGNESH RAMIREZ MD ADMIT DATE: 01/23/23/ER Draft Date of Exam:01/23/23 CHEST 1 VIEW, AP/PA ONLY CLINICAL INDICATION: Patient with Covid and having shortness of breath for approximately a week. Patient has fevers and congestion. EXAM: Portable chest x-ray upright view. COMPARISON: Chest x-ray dated 04/12/2022. FINDINGS: Lungs/pleura: Hyperinflated lungs are seen with lucent changes involving the upper lung field regions related to COPD. Lungs are clear. There is no pneumothorax. There is no pleural effusion. Mediastinum: Unremarkable. Pulmonary vasculature: Unremarkable. Heart: Unremarkable. Bones/extrathoracic soft tissue: Multiple old healed posterior right rib fractures are again seen. IMPRESSION: 1: There is no interval radiographic evidence of acute cardiopulmonary process. 2: COPD lung changes. Dictated on workstation # [id number] Dict: 01/23/23 1049 Trans: 01/23/23 1056 MICHELLE [id number] Interpreted by: JENNY ALEGRE MD Electronically signed by: Departure Communication (Admissions) Time/Spoke to Admitting Phy: 11:10 Impression Primary Impression: COVID-19 Additional Impressions: Sepsis Qualified Codes: A41.9 - Sepsis, unspecified organism UTI (urinary tract infection) Qualified Codes: N30.00 - Acute cystitis without hematuria COPD with acute exacerbation Disposition: ADMITTED INPATIENT Condition: Stable Admissions Decision to Admit Reason: Admit from ER (General) Decision to Admit/Date: Jan 23, 2023 Time/Decision to Admit Time: 11:10 Departure-Patient Inst. Referrals: NAFISA BROWN DO (PCP/Family) Primary Care Physician JIGNESH RAMIREZ MD Jan 23, 2023 10:14
--- NOTE | 2023-01-23 10:56 | Diagnostic Imaging Report ---
CLINICAL INDICATION: Patient with Covid and having shortness of breath for approximately a week. Patient has fevers and congestion. EXAM: Portable chest x-ray upright view. COMPARISON: Chest x-ray dated 04/12/2022. FINDINGS: Lungs/pleura: Hyperinflated lungs are seen with lucent changes involving the upper lung field regions related to COPD. Lungs are clear. There is no pneumothorax. There is no pleural effusion. Mediastinum: Unremarkable. Pulmonary vasculature: Unremarkable. Heart: Unremarkable. Bones/extrathoracic soft tissue: Multiple old healed posterior right rib fractures are again seen. IMPRESSION: 1: There is no interval radiographic evidence of acute cardiopulmonary process. 2: COPD lung changes. Dictated by: Dictated on workstation # [id number]
[2023-01-23] MEDS ORDERED: dexAMETHasone 6 MG TABLET PO STA (11:14)
[2023-01-23] MEDS ORDERED: cefTRIAXone IV/IM 1,000 MG in NS (IVPB) 50 ML 50 ML IV STA (11:15)
[2023-01-23] MEDS ORDERED: ONDANSETRON INJECTION 4 MG/2 ML (SDV) IV PRN (12:30)
[2023-01-23 12:43] VITALS: BP 162/84
[2023-01-23] MEDS: ENOXAPARIN 40 MG/0.4 ML SYRINGE SC SCH (12:57)
[2023-01-23] MEDS: NS IV 1000 ML 1,000 ML IV SCH (12:57)
[2023-01-23] MEDS: guaiFENesin SYRUP 100 MG/5 ML 10 ML PO PRN (13:04)
--- NOTE | 2023-01-23 13:29 | History & Physical-Hospitalist ---
RICH RENE 01/23/23 1329: History of Present Illness HPI/Chief Complaint Pt is a 62F who presents with a fever, N/V, and SOB since Monday. She is COVID p ositive. She says her last COVID vaccine was last March. She also says she has had increased frequency in urination that has made it difficult for her to sleep, but nothing else has aggravated or alleviated her sx. PT is in the room helping the patient ambulate around the room during this encounter. Pt is on 2L of oxygen at rest and 4L when she ambulates at home and on 4L of oxygen now in the room. Pt says they did a UA on her in the ED. Pt was given Ceftriaxone and Dexamethasone downstairs. Pt has COPD and HTN, for which she says she takes Metoprolol. Pt denies N/V, weakness, and fatigue at the present time. 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 Patients Allergies have been reviewed. Allergies Allergies Coded Allergies No Known Drug Allergies (Unverified10/19/22) Past Bgderai-Fndhyg-Itufwp Hx Patient Social History Marrital Status: single, Number of Children: 3 Number of living children: 3 Employed/Student: retired Tobacco Use?: Yes Tobacco type used: Cigarettes Smoking Status: Current Someday Smoker Approx how many per day: 10 Use of E-Cig and/or Vaping dev: No Substance use?: No Alcohol Use?: No Pt feels they are or have been: No Immunizations Up To Date Date of Influenza Vaccine: Apr 10, 2022 First/Initial COVID19 Vaccinat: PFIZER 07/03/20 Second COVID19 Vaccination Vincent: PFIZER 07/24/20 Tetanus Booster (TDap): Less Than 5 Years Hepatitis A: Yes Hepatitis B: No Date of Pneumonia Vaccine: Feb 01, 2009 Seasonal Allergies Seasonal Allergies: No Current Status status: No status: No Advance Directives: No Advance Directive Location: none Communicates: Verbally Primary Language: Armenian Preferred Spoken Language: Armenian Is interpretation needed?: No Sensory deficits: Vision impairment (cataract surgery) Implanted or Applied Medical D: None Past Medical History Surgeries: Hysterectomy Pneumonia (many times before), COPD 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 Using 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 Sexually Transmitted Disease: No UTI-Chronic (just 2 in the past) Hepatitis (Hep C, treated) Chronic Back Pain Are Your Blood Sugars Over 250: No Cataract Loss of Vision: Denies Hearing Impairment: Denies Cervical (possibly pre-cancer -> hysterectomy) What Type of Treatment Did You: Surgical Intervention Anxiety, Depression Adverse Reaction/Blood Tranf: No (STSTES GOT HEP C FROM BLOOD TRANSFUSION) Family Medical History Reviewed Nursing Family Hx Heart Disease (brothers), Cancer (grandma, colon), Diabetes (brother, mom), Hypertension (brothers) Review of Systems Constitutional: No chills; fever EENTM: No blurred vision, No double vision Respiratory: cough (got cough syrup); No hemoptysis; short of breath Cardiovascular: No chest pain, No palpitations Gastrointestinal: abdominal pain (periumbilical); No constipation, No diarrhea, No hematemesis, No melena Genitourinary: dysuria, frequency (increased); No hematuria Musculoskeletal: back pain, joint pain Skin: No lumps; other (says she bruises easily) Psychiatric/Neurological: Anxiety, Depressed Physical Exam Physical Exam Vital Signs Vital Signs - First Documented 01/23/23 01/23/23 08:56 14:06 Temp 38.1 Pulse 116 Resp 22 B/P (MAP) 139/105 (116) Pulse Ox 95 O2 Delivery Room Air O2 Flow Rate 4.00 FiO2 36 Capillary Refill : Height, Weight, BMI Height: '" Weight: lbs. oz. kg; 22.00 BMI Method:Estimated General Appearance: No Apparent Distress, Thin Neck: Non Tender; No JVD, No Tender Lateral Respiratory: No Accessory Muscle Use, No Respiratory Distress, Expiration (cough) Cardiovascular: Regular Rate, Rhythm, No Murmur Gastrointestinal: Non Tender, Soft; No Distended, No Guarding Extremity: No Pedal Edema; No Swelling Neurologic/Psychiatric: Alert, Oriented x3 Skin: Warm/Dry, Ecchymosis (right forearm) Results Results/Procedures Labs Laboratory Tests 01/23/23 08:59 Patient resulted labs reviewed. Assessment/Plan Assessment and Plan COVID + Sepsis Decadron Continue supplemental oxygen Continue IV fluids UTI Rocephin COPD Continue Guaifenesin Continue supplemental oxygen HTN Continue Metoprolol Anxiety and depression Continue Cymbalta DVT prophylaxis while in hospital Enoxaparin 40mg SJ BISHOP MD 01/23/23 1520: History of Present Illness Time Seen by a Provider: 11:15 Assessment/Plan Admission Diagnosis Acute on chronic respiratory failure due to COVID19 Admission Status: Inpatient Order (span 2 midnights) Reason for Inpatient Admission: see below Assessment and Plan All secondary to COVID. She does have COPD and a baseline oxygen requirement of 2 L/min. She has an acute on chronic respiratory failure secondary to COVID and is needing 4 L/min to maintain her oxygen saturations. She also has been quite nauseated and feels very weak so was admitted for further management. She will be started on Decadron due to her relative hypoxia. She is also meeting sepsis criteria which is likely complicated by her COVID status but she does appear to have a urinary tract infection. I do not believe her lactic acidosis is due to sepsis though I believe that is due to dehydration so I would not call her severe sepsis. Continue her on antibiotics and await cultures. Supervisory-Addendum Brief Verification & Attestation Participated in pt care: history, MDM, physical Personally performed: exam, history, MDM, supervision of care Care discussed with: Medical Student Procedures: n/a Results interpretation: Verified all documentation Verification and Attestation of Medical Student E/M Service A medical student performed and documented this service in my presence. I reviewed and verified all information documented by the medical student and made modifications to such information, when appropriate. I personally performed the physical exam and medical decision making. Sj Bishop, Jan 23, 2023,15:16 RICH RENE Jan 23, 2023 13:29 SJ BISHOP MD Jan 23, 2023 15:20
[2023-01-23] MEDS ORDERED: FLU QUADRIvalent (6 months+) 60 mcg/0.5 ml 2023-2024 (FLUARIX) IM ONE (13:45)
--- NOTE | 2023-01-23 13:48 | Physical Therapy Evaluation ---
PT Evaluation-General Medical Diagnosis Admission Date Jan 23, 2023 at 12:18 Medical Diagnosis: Covid Onset Date: Jan 23, 2023 Therapy Diagnosis Therapy Diagnosis: debility Precautions Precautions/Isolations: Standard Precautions Referral Physician: Edna Reason for Referral: Evaluation/Treatment Medical History Pertinent Medical History: CAD, COPD (O2 dependent), Smoking Current History ER secondary to SOA, fever, cough x 1 week Reviewed History: Yes Social History Home: Single Level Current Living Status: Other Family Prior Prior Level of Function SCALE: Activities may be completed with or without assistive devices. 8-Mjryjrluye-agrsqtv completes the activity by him/herself with no assistance from a helper. 5-Set-up or Clean-up Assistance-helper sets up or cleans up; patient completes activity. [place] assists only prior to or following the activity. 4-Supervision or Touching Assistance-helper provides verbal cues and/or touching/steadying and/or contact guard assistance as patient completes activi ty. Assistance may be provided throughout the activity or intermittently. 3-Partial/Moderate Assistance-helper does LESS THAN HALF the effort. [place] lifts, holds or supports trunk or limbs, but provides less than half the effort. 2-Substantial/Maximal Assistance-helper does MORE THAN HALF the effort. [place] lifts or holds trunk or limbs and provides more than half the effort. 3-Qnspeoisd-colcia does ALL the effort. Patient does none of the effort to complete the activity. Or, the assistance of 2 or more helpers is required for the patient to complete the activity. If activity was not attempted, code reason: 7-Patient Refused. 9-Not Applicable-not attempted and the patient did not perform the activity before the current illness, exacerbation or injury. 10-Not Attempted due to Environmental Limitations-(lack of equipment, weather restraints, etc.). 88-Not Attempted due to Medical Conditions or Safety Concerns. Bed Mobility: 6 Transfers (B,C,W/C): 6 Gait: 6 Stairs: 6 Indoor Mobility (Ambulation): Independent Stairs: Independent Prior Devices Use: None PT Evaluation-Current Subjective Patient agrees to PT. Objective Patient Orientation: Normal For Age Attachments: Oxygen, IV ROM/Strength ROM Lower Extremities bilateral LE WFL Strength Lower Extremities 4/5 grossly bilateral LE all planes Integumentary/Posture Bowel Incontinence: No Bladder Incontinence: No Posture WFL Neuromuscular (Tone, Coordination, Reflexes) grossly intact Sensory Vision: Wears Glasses Hearing: Functional Transfers Sit to Lying (QC): 6 Lying to Sitting/Side of Bed(Q: 6 Gait Mode of Locomotion: Walk Anticipated Mode of Locomotion: Walk Walk 10 feet (QC): 6 Walk 50 ft with 2 Turns(QC): 6 Walk 150 ft (QC): 6 Distance: 150' Gait Assistive Device: None Comments/Gait Description safe and functional with no deviation Balance Sitting Static: Normal Sitting Dynamic: Normal Standing Static: Normal Standing Dynamic: Normal Assessment/Needs Patient is currently at [facility] with all gross motor skills safely and does not require skilled PT intervention at this time. Rehab Potential: Fair PT Plan Treatment/Plan Treatment Plan: Discontinue PT Treatment Duration: Jan 23, 2023 Frequency: 1 time per week Estimated Hrs Per Day: .25 hour per day Patient and/or Family Agrees t: Yes Time Time In: 1320 Time Out: 1330 DATE: Jan 23, 2023 Total Billed Treatment Time: 10 Total Billed Treatment [address] [facility] 10 min JASON BROWN PT Jan 23, 2023 13:48
[2023-01-23 14:06] VITALS: BP 139/105
--- NOTE | 2023-01-23 15:07 | Occupational Therapy Eval ---
OT Evaluation-General/PLF Medical Diagnosis Admission Date Jan 23, 2023 at 12:18 Medical Diagnosis: Covid Onset Date: Jan 23, 2023 Therapy Diagnosis Therapy Diagnosis: COVID Precautions Precautions/Isolations: Standard Precautions Referral Physician: Edna Referral Reason: Evaluation/Treatment Medical History Pertinent Medical History: CAD, COPD (O2 dependent), Smoking Reviewed History: Yes Social History Home: Single Level Current Living Status: Other Family ADL-Prior Level of Function SCALE: Activities may be completed with or without assistive devices. 2-Wkbvndttsf-gkocepf completes the activity by him/herself with no assistance from a helper. 5-Set-up or Clean-up Assistance-helper sets up or cleans up; patient completes activity. [place] assists only prior to or following the activity. 4-Supervision or Touching Assistance-helper provides verbal cues and/or touching/steadying and/or contact guard assistance as patient completes activity. Assistance may be provided throughout the activity or intermittently. 3-Partial/Moderate Assistance-helper does LESS THAN HALF the effort. [place] lifts, holds or supports trunk or limbs, but provides less than half the effort. 2-Substantial/Maximal Assistance-helper does MORE THAN HALF the effort. [place] lifts or holds trunk or limbs and provides more than half the effort. 7-Wxejftjdm-xjgbbb does ALL the effort. Patient does none of the effort to complete the activity. Or, the assistance of 2 or more helpers is required for the patient to complete the activity. If activity was not attempted, code reason: 7-Patient Refused. 9-Not Applicable-not attempted and the patient did not perform the activity before the current illness, exacerbation or injury. 10-Not Attempted due to Environmental Limitations-(lack of equipment, weather restraints, etc.). 88-Not Attempted due to Medical Conditions or Safety Concerns. Self Care: Independent Functional Cognition: Independent Drive Self: Yes OT Current Status Subjective Agreeable to EVALUATION Pain Numeric Pain Scale: 0-No Pain Mental Status/Objective Patient Orientation: Person, Place, Time, Situation Current Upper Extremity ROM BUE ROM WFL Upper Extremity Coordination WNL Upper Extremity Sensation INTACT Upper Extremity Strength 4/5 ADL-Treatment Eating (QC): 6 Oral Hygiene (QC): 6 Shower/Bathe Self (QC): 7 Upper Body Dressing (QC): 6 Lower Body Dressing (QC): 6 On/Off Footwear (QC): 6 Toileting Hygiene (QC): 6 Education OT Patient Education: Progress toward Goal/Update tx plan, Purpose of tx/functional activities, Reviewed precautions, Rehab process Teaching Recipient: Patient Teaching Methods: Discussion Response to Teaching: Return Demonstration OT Pulley Worker Goals Pulley Worker Goals 1=Demonstrate adherence to instructed precautions during ADL tasks. 2=Patient will verbalize/demonstrate understanding of assistive devices/modifications for ADL. 3=Patient will improve strength/tolerance for activity to enable patient to perform ADL's. OT Education/Plan Problem List/Assessment Assessment: No Skilled OT Needs ID'd Discharge Recommendations Plan/Recommendations: Discontinue OT Treatment Plan/Plan of Care Patient would benefit from OT for education, treatment and training to promote independence in ADL's, mobility, safety and/or upper extremity function for ADL's. Plan of Care: OTHER (EVAL ONLY) Treatment Duration: Jan 23, 2023 Frequency: 1 time per week Estimated Hrs Per Day: .25 hour per day Agreement: Yes Rehab Potential: Good UP AMBULATING IN ROOM UNASSISTED Time Start Time: 13:20 Stop Time: 13:30 DATE: Jan 23, 2023 Total Time Billed (hr/min): 10 Billed Treatment Time EVL 10 MIN CALLY MRATIN OT Jan 23, 2023 15:07
[2023-01-23 15:55] VITALS: BP 121/76
[2023-01-23] MEDS: FLUTICASONE/VILANTEROL 200/25 MCG (7 DOSES) IH SCH (16:12)
[2023-01-23] MEDS ORDERED: NICOTINE 21 MG PATCH TD NR (18:15)
[2023-01-23 19:27] VITALS: BP 133/78
[2023-01-23] MEDS: DULoxetine 30 MG CAPSULE PO SCH (20:16)
[2023-01-23] MEDS: GABAPENTIN 300 MG CAPSULE PO SCH (20:16)
[2023-01-23] MEDS: RT-ALBUTEROL HFA 8.5 GM INHALER IH SCH ×2 (20:19→23:23)
[2023-01-23] MEDS: TIOTROPIUM INH 4 GM (SPIRIVA Respimat) IH SCH (20:20)
[2023-01-23] MEDS ORDERED: NON-FORMULARY MEDICATION 1 EA EA (Duloxetine HCl 60 MG) PO SCH (21:00)
[2023-01-23] MEDS ORDERED: UMECLIDINIUM BROMIDE (INCRUSE ELLIPTA) 7'S IH SCH (21:00)
[2023-01-23] MEDS ORDERED: NON-FORMULARY MEDICATION 1 EA EA (Budesonide/Formoterol Fumarate (Symbicort 160-4.5 Mcg In IH SCH (21:00)
[2023-01-23 23:18] VITALS: BP 146/78
[2023-01-24] MEDS ORDERED: ACETAMINOPHEN 325 MG TABLET ONE (02:41)
[2023-01-24] MEDS: ACETAMINOPHEN 325 MG TABLET PO PRN ×2 (02:46→13:33)
[2023-01-24] MEDS: NS IV 1000 ML 1,000 ML IV SCH ×2 (02:47→15:50)
[2023-01-24 02:48] VITALS: BP 146/81
[2023-01-24] MEDS: RT-ALBUTEROL HFA 8.5 GM INHALER IH SCH ×6 (02:55→22:56)
[2023-01-24] MEDS: THERAPEUTIC MULTIVITAMIN W/MINERALS TABLET PO SCH (05:42)
[2023-01-24 06:06] LABS: HEMATOCRIT 32 % (35-52); HEMOGLOBIN 10.7 g/dL (11.5-16.0); MEAN CORPUSCULAR HEMOGLOBIN 30 pg (25-34); MEAN CORPUSCULAR HGB CONC 33 g/dL (32-36); MEAN CORPUSCULAR VOLUME 91 fL (80-99); PLATELET COUNT 241 10^3/uL (130-400); WHITE BLOOD COUNT 7.8 10^3/uL (4.3-11.0)
[2023-01-24 06:27] LABS: CALCIUM 8.2 MG/DL (8.5-10.1); CREATININE SERUM 0.71 MG/DL (0.60-1.30); POTASSIUM 3.7 MMOL/L (3.6-5.0)
[2023-01-24] MEDS: FLUTICASONE/VILANTEROL 200/25 MCG (7 DOSES) IH SCH (07:31)
[2023-01-24] MEDS: TIOTROPIUM INH 4 GM (SPIRIVA Respimat) IH SCH (07:32)
[2023-01-24 07:46] VITALS: BP 143/77
[2023-01-24] MEDS ORDERED: NON-FORMULARY MEDICATION 1 EA EA (Multivits-Min/Iron/FA/Lutein (Centrum Silver Women Table PO SCH (09:00)
[2023-01-24] MEDS: NICOTINE PATCH REMOVAL TP SCH (09:22)
[2023-01-24] MEDS: dexAMETHasone 6 MG TABLET PO SCH (09:23)
[2023-01-24] MEDS: cefTRIAXone IV/IM 1,000 MG in NS (IVPB) 50 ML 50 ML IV SCH (09:24)
[2023-01-24] MEDS: NICOTINE 21 MG PATCH TD SCH (09:24)
[2023-01-24] MEDS ORDERED: MULT-1021 PO (09:38)
[2023-01-24] MEDS: RT-ALBUTEROL HFA 8.5 GM INHALER IH PRN ×2 (11:02→19:03)
[2023-01-24 11:42] VITALS: BP 138/78
--- NOTE | 2023-01-24 13:24 | Progress Note - Hospitalist ---
RICH RENE 01/24/23 1324: Subjective HPI/CC On Admission Pt is a 62F who presents with a fever, N/V, and SOB since Monday. She is COVID positive. She says her last COVID vaccine was last March. She also says she has had increased frequency in urination that has made it difficult for her to sleep, but nothing else has aggravated or alleviated her sx. PT is in the room helping the patient ambulate around the room during this encounter. Pt is on 2L of oxygen at rest and 4L when she ambulates at home and on 4L of oxygen now in the room. Pt says they did a UA on her in the ED. Pt was given Ceftriaxone and Dexamethasone downstairs. Pt has COPD and HTN, for which she says she takes Metoprolol. Pt denies N/V, weakness, and fatigue at the present time. Subjective/Events-last exam Pt didn't sleep well after being put on the Decadron yesterday. Pt complains of a headache last night and repetitive ear popping. Pt has felt a little nausea, fatigue, and weakness but denies vomiting. Pt states her dysuria and increased urinary frequency are improving while on Rocephin. Pt states her anxiety is high despite being on Cymbalta but overall is feeling better than yesterday, but she states she does not yet feel well enough to leave. Pt is now on her at-home maintenance amount of oxygen and her WBC is 7.8. Review of Systems General: No Chills, No Night Sweats; Fatigue HEENT: Head Aches (last night); No Visual Changes Pulmonary: No Dyspnea; Cough (w/ some sputum but mostly clear) Cardiovascular: No: Chest Pain, Palpitations Gastrointestinal: Nausea; No: Vomiting Genitourinary: Dysuria (improved since yesterday), Frequency (improved since yesterday) Neurological: Weakness; No: Numbness Focused Exam Lactate Level 01/23/23 08:59: Lactic Acid Level 2.83*H 01/23/23 10:50: Lactic Acid Level 0.94 Objective Exam Vital Signs Vital Signs Date Time Temp Pulse Resp B/P (MAP) Pulse Ox O2 Delivery O2 Flow Rate FiO2 01/24/23 11:42 36.3 95 17 138/78 (98) 96 Nasal Cannula 2.00 01/23/23 14:06 36 Capillary Refill : General Appearance: No Apparent Distress, Chronically ill HEENT: PERRL/EOMI; No Scleral Icterus (L), No Scleral Icterus (R) Neck: Non Tender; No JVD, No Tender Lateral Respiratory: No Accessory Muscle Use, No Respiratory Distress, Expiration (cough and stridor), Stridor (expiratory) Cardiovascular: Regular Rate, Rhythm, No Murmur Gastrointestinal: Non Tender, Soft; No Distended, No Guarding Neurologic/Psychiatric: Alert, Oriented x3 Skin: Warm/Dry, Ecchymosis (right forearm) Results/Procedures Lab Laboratory Tests 01/24/23 06:00 Patient resulted labs reviewed. Assessment/Plan Assessment and Plan Assess & Plan/Chief Complaint Sepsis Resolved COVID Decadron Continue supplemental oxygen Continue IV fluids UTI Rocephin COPD Continue Guaifenesin Continue supplemental oxygen HTN Continue Metoprolol Anxiety and depression Continue Cymbalta DVT prophylaxis while in hospital Enoxaparin 40mg SJ BISHOP MD 01/24/23 1529: Assessment/Plan Assessment and Plan Assess & Plan/Chief Complaint Patient reports doing a little better today. Down to 3lpm, nearing her baseline of 2lpm. She is shaky from the steroids though and very hungry which she says is normal when she gets steroids. She is using her IS. Hopefully home tomorrrow if she is doing better. Supervisory-Addendum Brief Verification & Attestation Participated in pt care: history, MDM, physical Personally performed: exam, history, MDM, supervision of care Care discussed with: Medical Student Procedures: n/a Results interpretation: Verified all documentation Verification and Attestation of Medical Student E/M Service A medical student performed and documented this service in my presence. I reviewed and verified all information documented by the medical student and made modifications to such information, when appropriate. I personally performed the physical exam and medical decision making. Sj Bishop, Jan 24, 2023,15:27 RICH RENE Jan 24, 2023 13:24 SJ BISHOP MD Jan 24, 2023 15:29
[2023-01-24] MEDS: guaiFENesin SYRUP 100 MG/5 ML 10 ML PO PRN (13:32)
[2023-01-24] MEDS: ENOXAPARIN 40 MG/0.4 ML SYRINGE SC SCH (13:32)
[2023-01-24 15:51] VITALS: BP 147/76
[2023-01-24 19:37] VITALS: BP 133/72
[2023-01-24] MEDS: DULoxetine 30 MG CAPSULE PO SCH (20:45)
[2023-01-24] MEDS: GABAPENTIN 300 MG CAPSULE PO SCH (20:45)
[2023-01-24 23:57] VITALS: BP 148/65
[2023-01-25] MEDS: ACETAMINOPHEN 325 MG TABLET PO PRN (02:10)
[2023-01-25] MEDS: RT-ALBUTEROL HFA 8.5 GM INHALER IH SCH ×4 (02:29→15:08)
[2023-01-25 03:26] VITALS: BP 151/79
[2023-01-25] MEDS: NS IV 1000 ML 1,000 ML IV SCH (04:55)
[2023-01-25] MEDS: THERAPEUTIC MULTIVITAMIN W/MINERALS TABLET PO SCH (06:16)
[2023-01-25 07:48] VITALS: BP 117/64
[2023-01-25] MEDS ORDERED: TIOTROPIUM INH 4 GM (SPIRIVA Respimat) IH SCH (08:00)
[2023-01-25] MEDS: FLUTICASONE/VILANTEROL 200/25 MCG (7 DOSES) IH SCH (09:16)
[2023-01-25] MEDS: dexAMETHasone 6 MG TABLET PO SCH (09:17)
[2023-01-25] MEDS: cefTRIAXone IV/IM 1,000 MG in NS (IVPB) 50 ML 50 ML IV SCH (09:17)
[2023-01-25] MEDS: NICOTINE PATCH REMOVAL TP SCH (09:18)
[2023-01-25] MEDS: NICOTINE 21 MG PATCH TD SCH (09:18)
[2023-01-25 11:12] VITALS: BP 120/63
--- NOTE | 2023-01-25 11:41 | Discharge Summary ---
RICH RENE 01/25/23 1141: Diagnosis/Chief Complaint Date of Admission Jan 23, 2023 at 12:18 Date of Discharge Admission Diagnosis Acute on chronic respiratory failure due to COVID19 Primary Care Jesus Duron DO Discharge Summary Discharge Physical Exam Allergies: Coded Allergies: No Known Drug Allergies (Unverified , 10/19/22) Vitals & I&Os Vital Signs Date Time Temp Pulse Resp B/P (MAP) Pulse Ox O2 Delivery O2 Flow Rate FiO2 01/25/23 11:12 36.4 81 17 120/63 (82) 98 Nasal Cannula 2.00 01/23/23 14:06 36 General Appearance: No Apparent Distress, WD/WN HEENT: PERRL/EOMI; No Scleral Icterus (L), No Scleral Icterus (R) Respiratory: Lungs Clear, Normal Breath Sounds, No Accessory Muscle Use, No Respiratory Distress Cardiovascular: Regular Rate, Rhythm, No Edema, No JVD, No Murmur Gastrointestinal: Non Tender, Soft; No Distended, No Guarding Extremity: Non Tender, No Pedal Edema Skin: Warm/Dry, Ecchymosis (right forearm) Neurologic/Psychiatric: Alert, Oriented x3 Hospital Course Duyen Roth presented on 01/23 with COVID, sepsis, and a UTI. She has a PMH of COPD, HTN, and anxiety and depression. She initially needed a step-up in her supplemental oxygen demands from 2L to 4L at rest but has improved to her baseline. Her dysuria and increased frequency have resolved. Her WBC count was last measured 7.3 on 01/24. Her sepsis has stepped down to an E. coli bacteremia, for which sensitivity cultures were done, and she will be discharged with Dexamethasone and abx that her bacteremia and UTI are sensitive to. Labs (last 24 hrs) Microbiology 01/23/23 Blood Culture - Preliminary, Resulted 01/23/23 Urine Culture - Final, Complete Escherichia coli Patient resulted labs reviewed. Discharge Home Medications: Active Scripts Active Reported Centrum Silver Women Tablet (Multivit-Min/Iron/FA/Vit K/Lut) 8 Mg Iron-400 Mcg- 50 Mcg-300 Mcg Tablet 1 Each PO DAILY Tylenol Extra Strength (Acetaminophen) 500 Mg Tablet 1,000 Mg PO Q8H PRN Metoprolol Succinate 25 Mg Tab.er.24h 25 Mg PO HS Duloxetine HCl 60 Mg Capsule.dr 60 Mg PO HS Neurontin (Gabapentin) 300 Mg Capsule 600 Mg PO HS TAKES 2 (300MG) CAPS Incruse Ellipta (Umeclidinium [place]) 62.5 Mcg/Actuation Blst.w.dev 1 Puff IH DAILY Symbicort 160-4.5 Mcg Inhaler (Budesonide/Formoterol Fumarate) 160 Mcg-4.5 Mcg/Actuation Hfa.aer.ad 2 Puff IH BID Ventolin Hfa (Albuterol Sulfate) 1 Puff Puff 2 Puff IH Q4H PRN Instructions to patient/family Please see electronic discharge instructions given to patient. SJ BISHOP MD 01/25/23 1324: Discharge Summary Discharge Physical Exam Allergies: Coded Allergies: No Known Drug Allergies (Unverified , 10/19/22) Discussion & Recommendations Discharge Planning: >30 minutes discharge planning Supervisory-Addendum Brief Verification & Attestation Participated in pt care: history, MDM, physical Personally performed: exam, history, MDM, supervision of care Care discussed with: Medical Student Procedures: n/a Results interpretation: Verified all documentation Verification and Attestation of Medical Student E/M Service A medical student performed and documented this service in my presence. I reviewed and verified all information documented by the medical student and made modifications to such information, when appropriate. I personally performed the physical exam and medical decision making. Sj Bishop, Jan 25, 2023,13:24 RICH RENE Jan 25, 2023 11:41 SJ BISHOP MD Jan 25, 2023 13:24
[2023-01-25] MEDS: ENOXAPARIN 40 MG/0.4 ML SYRINGE SC SCH (12:34)
[2023-01-25] MEDS ORDERED: CEPH500T PO (13:03)
[2023-01-25] MEDS ORDERED: DEXA6TAB PO (13:03)
--- NOTE | 2023-01-25 13:04 | Discharge Inst-Simple/Standard ---
Discharge Inst-Standard Discharge Medications New, Converted or Re-Newed RX: Transmitted to Pharmacy Patient Instructions/Follow Up Plan of Care/Instructions/FU: Please continue to take your medications as written. Please follow up with your primary care doctor to follow up this hospital stay. Activity as Tolerated: Yes Discharge Diet: No Restrictions Return to The Hospital For: Chest pain, shortness of breath, fever, weakness, if you feel you are getting worse. SJ SAUCEDA MD Jan 25, 2023 13:04
[2023-01-25 17:15] VITALS: BP 120/63
== END 2023-01-25 17:15 | disposition home or self-care (01) | DRG 871 ==
LOC: EDUNIT# 08:48 → ER 08:49 → 4TH 12:18
PROVIDERS: ADMIT Family Medicine; ATTEND Family Medicine
DX: A41.89 Other specified sepsis (principal); J96.21 Acute and chronic respiratory failure with hypoxia; U07.1 COVID-19; N39.0 Urinary tract infection, site not specified; J44.1 Chronic obstructive pulmonary disease with (acute) exacerbation; E87.20 Acidosis, unspecified; A41.51 Sepsis due to Escherichia coli [E. coli]; Z99.81 Dependence on supplemental oxygen; I25.10 Atherosclerotic heart disease of native coronary artery without angina pectoris; I10 Essential (primary) hypertension; F41.9 Anxiety disorder, unspecified; F32.A Depression, unspecified; F17.210 Nicotine dependence, cigarettes, uncomplicated; M54.9 Dorsalgia, unspecified; G89.29 Other chronic pain; H54.7 Unspecified visual loss; Z79.899 Other long term (current) drug therapy; Z23 Encounter for immunization
CPT/HCPCS: 36415; 71045; 80048; 80053; 81000; 83605; 83880; 85025; 85027; 85610; 85730; 86141; 87040; 87077; 87088; 87186; 87636; 90686; 93005; 94640; 94664; 94760